=== PATIENT | male | born 1965 | race Caucasian/White ===

== ENCOUNTER 2023-04-11 10:18 | Observation (INO) | payer OTHER ==
[2023-04-11] MEDS ORDERED: SODIUM CHLORIDE 0.9% 1,000 ML IV STA (10:21)
--- NOTE | 2023-04-11 11:05 | ED ---
General Adult HPI - General Chief complaint: Syncope Stated complaint: Near Syncope Time Seen by Provider: 04/11/23 10:21 Source: patient, EMS, RN notes reviewed, Caregiver Mode of arrival: EMS Limitations: altered mental status - History of Present Illness Initial comments: 58-year-old male presenting from longterm where he resides with either syncope versus seizure. Patient has remote history of seizure but has not had one in some time. Patient has no complaints himself. Apparently the patient had collapsed with minor head injury and was somewhat confused. This was not witnessed but staff were immediately at the patient's bedside. He has poor appetite at baseline. No reported fever. He was incontinent of stool. He is currently being worked up by cardiology but uncertain what his primary diagnosis is. - Related Data Home Medications Medication Instructions Recorded Confirmed Cyproheptadine [Cyproheptadine HCl] 4 mg PO DAILY@79904/11/23 04/11/23 Desmopressin [Ddavp] 0.4 mg PO HS@199904/11/23 04/11/23 Ferrous Sulfate [Iron] 325 mg PO DAILY@79904/11/23 04/11/23 LORazepam [Ativan] 0.5 mg PO BID PRN 04/11/23 04/11/23 Lactulose [Constulose] 10 gm PO TID PRN 04/11/23 04/11/23 Levothyroxine Sodium [Synthroid] 75 mcg PO DAILY@199904/11/23 04/11/23 Loratadine [Claritin] 10 mg PO DAILY@199904/11/23 04/11/23 Multivitamins, Thera [Multivitamin 1 tab PO DAILY@79904/11/23 04/11/23 (formulary)] Naltrexone HCl [Revia] 50 mg PO BID@799,199904/11/23 04/11/23 OLANZapine [ZyPREXA] 5 mg PO HS@199904/11/23 04/11/23 Pantoprazole Sodium [Protonix] 40 mg PO DAILY@79904/11/23 04/11/23 Potassium Chloride ER [K-Dur 20] 20 meq PO DAILY@79904/11/23 04/11/23 Propranolol [Inderal] 5 mg PO DAILY@79904/11/23 04/11/23 Psyllium Husk (with Sugar) 1 tsp PO HS PRN 04/11/23 04/11/23 [Metamucil Powder] Venlafaxine HCl ER [Effexor Xr] 150 mg PO BID@0800,199904/11/23 04/11/23 busPIRone HCL [Buspar] 30 mg PO BID@0800,199904/11/23 04/11/23 levETIRAcetam [Keppra] 500 mg PO BID@0800,199904/11/23 04/11/23 polyethylene glycoL 3350 [Miralax] 17 gm PO DAILY@0800 04/11/23 04/11/23 risperiDONE [RisperDAL] 4 mg PO BID@0800,1500 04/11/23 04/11/23 Allergies Allergy/AdvReac Type Severity Reaction Status Date / Time carbamazepine Allergy Unknown Verified 04/11/23 12:00 red dye Allergy Unknown Verified 04/11/23 12:00 Review of Systems ROS Statement: Those systems with pertinent positive or pertinent negative responses have been documented in the HPI. ROS Other: All systems not noted in ROS Statement are negative. Past Medical History Past Medical History: Hypertension, Seizure Disorder, Thyroid Disorder Additional Past Medical History / Comment(s): hernia History of Any Multi-Drug Resistant Organisms: None Reported Past Surgical History: Unable to Obtain Past Psychological History: PTSD Smoking Status: Unknown if ever smoked Past Alcohol Use History: None Reported Past Drug Use History: None Reported General Exam Limitations: altered mental status General appearance: alert Head exam: Present: other (Frontal hematoma) Eye exam: Present: normal appearance, PERRL ENT exam: Present: mucous membranes dry Neck exam: Present: normal inspection. Absent: tenderness, meningismus Respiratory exam: Present: normal lung sounds bilaterally. Absent: respiratory distress Cardiovascular Exam: Present: normal rhythm, bradycardia GI/Abdominal exam: Present: soft. Absent: distended Extremities exam: Present: normal inspection, normal capillary refill. Absent: calf tenderness Neurological exam: Present: alert. Absent: motor sensory deficit Skin exam: Present: warm, dry, intact Course Vital Signs 04/11/23 10:23 Temperature 96.5 F L Pulse Rate 48 L Respiratory 18 Rate Blood Pressure 103/89 O2 Sat by Pulse 99 Oximetry Medical Decision Making - Medical Decision Making Was pt. sent in by a medical professional or institution (, PA, TESTER/LIFT TRUCKER, urgent care, hospital, or long-term...) When possible be specific @ -No Did you speak to anyone other than the patient for history (EMS, parent, family, police, friend...)? What history was obtained from this source @ -No Did you review nursing and triage notes (agree or disagree)? Why? @ -I reviewed and agree with nursing and triage notes Were old charts reviewed (outside hosp., previous admission, EMS record, old EKG, old radiological studies, urgent care reports/EKG's, long-term records)? Report findings @ -No old charts were reviewed Differential Diagnosis (chest pain, altered mental status, abdominal pain women, abdominal pain men, vaginal bleeding, weakness, fever, dyspnea, syncope, headache, dizziness, GI bleed, back pain, seizure, CVA, palpatations, mental health, musculoskeletal)? @ Differential Syncope: Valvular disease, hypertrophic cardiomyopathy, pulmonary embolism, tamponade, tachycardia, bradycardia, RI, hypovolemia, hemorrhage, dissection, anemia, intracranial hemorrhage, seizure, hypoglycemia, carbon monoxide poisoning, this is not meant to be an all-inclusive list. EKG interpreted by me (3pts min.). @Narrow complex rhythm without definitive P waves rate of 45, QRS duration 112, QTC 435, no ST segment elevation. Suspect sinus rhythm, sinus rhythm on the monitor. X-rays interpreted by me (1pt min.). @ No acute cardiopulmonary findings CT interpreted by me (1pt min.). @ -CT brain negative for intracranial hemorrhage or mass effect U/S interpreted by me (1pt. min.). @ -None done What testing was considered but not performed or refused? (CT, X-rays, U/S, labs)? Why? @ -None What meds were considered but not given or refused? Why? @ -None Did you discuss the management of the patient with other professionals (professionals i.e. , PA, TESTER/LIFT TRUCKER, lab, RT, psych nurse, rn social work, polisher sand, teacher, ground nuclear weapons assembly officer, social work case manager)? Give summary @ - Sheet Was smoking cessation discussed for >3mins.? @ -No Was critical care preformed (if so, how long)? @ -No Were there social determinants of health that impacted care today? How? (Homelessness, low income, unemployed, alcoholism, drug addiction, transportation, low edu. Level, literacy, decrease access to med. care, halfway, rehab)? @ -No Was there de-escalation of care discussed even if they declined (Discuss DNR or withdrawal of care, Hospice)? DNR status @ -No What co-morbidities impacted this encounter? (DM, HTN, Smoking, COPD, CAD, Cancer, CVA, ARF, Chemo, Hep., AIDS, mental health diagnosis, sleep apnea, morbid obesity)? @ -[Seizure disorder Was patient admitted / discharged? Hospital course, mention meds given and route, prescriptions, significant lab abnormalities, going to OR and other pertinent info. @ -[58-year-old male presenting for evaluation of syncope versus seizure. History limited from the patient. Caregiver does indicate that he had an un witnessed fall and was unconscious. There was head injury. Head CT was negative for intracranial hemorrhage. The patient is at baseline at time my evaluation. He is bradycardic which is narrow complex. He apparently does not eat or drink well at baseline. Given that the patient is difficult to obtain a detailed history. I will observe him on telemetry overnight, IV hydration will be arriving. Consultation to both neurology and cardiology will be placed. Undiagnosed new problem with uncertain prognosis? @ -No Drug Therapy requiring intensive monitoring for toxicity (Heparin, Nitro, Insulin, Cardizem)? @ -No Were any procedures done? @ -No Diagnosis/symptom? @ -Syncope, bradycardia, possible seizure Acute, or Chronic, or Acute on Chronic? @ -[acute Uncomplicated (without systemic symptoms) or Complicated (systemic symptoms)? @ -default Side effects of treatment? @ -No Exacerbation, Progression, or Severe Exacerbation? @ -No Poses a threat to life or bodily function? How? (Chest pain, USA, RI, pneumonia, PE, COPD, DKA, ARF, appy, cholecystitis, CVA, Diverticulitis, Homicidal, Suicidal, threat to staff... and all critical care pts) @ - yes, seizure, arrhythmia - Lab Data Result diagrams: 04/11/23 11:37 04/11/23 11:37 Lab Results 04/11/23 04/11/23 04/11/23 Range/Units 11:37 11:37 11:37 WBC 9.5 (3.8-10.6) k/uL RBC 4.35 (4.30-5.90) m/uL Hgb 14.1 (13.0-17.5) gm/dL Hct 41.4 (39.0-53.0) % MCV 95.1 (80.0-100.0) fL MCH 32.5 (25.0-35.0) pg MCHC 34.2 (31.0-37.0) g/dL RDW 12.5 (11.5-15.5) % Plt Count 160 (150-450) k/uL MPV 7.8 Neutrophils % 76 % Lymphocytes % 15 % Monocytes % 6 % Eosinophils % 2 % Basophils % 0 % Neutrophils # 7.2 (1.3-7.7) k/uL Lymphocytes # 1.4 (1.0-4.8) k/uL Monocytes # 0.6 (0-1.0) k/uL Eosinophils # 0.2 (0-0.7) k/uL Basophils # 0.0 (0-0.2) k/uL Sodium 137 (137-145) mmol/L Potassium 4.2 (3.5-5.1) mmol/L Chloride 109 H (98-107) mmol/L Carbon Dioxide 23 (22-30) mmol/L Anion Gap 5 mmol/L BUN 14 (9-20) mg/dL Creatinine 0.65 L (0.66-1.25) mg/dL Est GFR (CKD-EPI)AfAm >90 (>60 ml/min/1.73 sqM) Est GFR (CKD-EPI)NonAf >90 (>60 ml/min/1.73 sqM) Glucose 104 H (74-99) mg/dL Calcium 8.7 (8.4-10.2) mg/dL Magnesium 2.0 (1.6-2.3) mg/dL Total Bilirubin 0.6 (0.2-1.3) mg/dL AST 25 (17-59) U/L ALT 20 (4-49) U/L Alkaline Phosphatase 54 (38-126) U/L Troponin I <0.012 (0.000-0.034) ng/mL Total Protein 6.2 L (6.3-8.2) g/dL Albumin 3.5 (3.5-5.0) g/dL Disposition Clinical Impression: Dehydration, Syncope and collapse, Seizure Disposition: ADMITTED IP TO THIS HOSP Condition: Stable Is patient prescribed a controlled substance at d/c from ED?: No Referrals: Kate Vidales MD [REFERRING] - 1-2 days Time of Disposition: 12:44
--- NOTE | 2023-04-11 11:28 | XR ---
EXAMINATION TYPE: XR chest 2V DATE OF EXAM: 04/11/2023 11:12 AM COMPARISON: None TECHNIQUE: XR chest 2V Frontal and lateral views of the chest. CLINICAL INDICATION:Male, 58 years old with history of syncope; FINDINGS: Lungs/Pleura: There is no evidence of pleural effusion, focal consolidation, or pneumothorax. Pulmonary vascularity: Unremarkable. Heart/mediastinum: Cardiomediastinal silhouette is unremarkable. Musculoskeletal: No acute osseous pathology. IMPRESSION: No acute cardiopulmonary disease/process.
--- NOTE | 2023-04-11 11:42 | CT ---
EXAMINATION TYPE: CT brain cb wo con DATE OF EXAM: 04/11/2023 COMPARISON: None HISTORY: Sycnope. Hx of Seizures, HTN and anxiety CT DLP: 1455.1 mGycm, Automated exposure control for dose reduction was used. CONTRAST: None CT of the brain is performed utilizing 3 mm thick sections through the posterior fossa and 3 mm thick sections through the remaining calvarium. Study is performed within 24 hours of arrival to the hospital. No abnormal hyperdensity is present to suggest an acute intracranial hemorrhage. No mass lesion is evident. No acute infarcts are evident. Periventricular white matter hypodensity is present, likely on the ba sis of chronic white matter ischemic changes. Ventricles and sulci are appropriate for the patient age. Paranasal sinuses and mastoid air cells within the [id number] are clear. IMPRESSIONS: 1. Chronic appearing periventricular white matter ischemic changes. 2. No acute intracranial process. Follow-up MRI can be performed as clinically indicated. CT cervical spine. COMPARISON: None CT of the cervical spine is performed in the axial plane at 2 mm thick sections. Reconstructed image s in the coronal, and sagittal plane are reviewed on the computer. No acute fractures are evident. There is exaggeration of the cervical lordosis due to kyphosis within the upper thoracic spine Mild degenerative disc changes are present within the lower thoracic spine. Minimal spondylosis of th e cervical thoracic junction. Vertebral body heights are preserved. No spinal canal stenosis is evident. No neural foraminal stenosis is evident. IMPRESSIONS: 1. Thoracic kyphosis with compensatory cervical lordosis. 2. No acute osseous abnormality cervical spine
[2023-04-11 11:49] LABS: Basophils % (A) 0 %; Eosinophils # (A) 0.2 k/uL (0-0.7); Eosinophils % (A) 2 %; HCT 41.4 % (39.0-53.0); HGB 14.1 gm/dL (13.0-17.5); Lymphocytes # (A) 1.4 k/uL (1.0-4.8); Lymphocytes % (A) 15 %; MCH 32.5 pg (25.0-35.0); MCHC 34.2 g/dL (31.0-37.0); MCV 95.1 fL (80.0-100.0); Mean Platelet Volume 7.8; Monocytes # (A) 0.6 k/uL (0-1.0); Monocytes % (A) 6 %; Neutrophils # (A) 7.2 k/uL (1.3-7.7); Neutrophils % (A) 76 %; Platelet Count 160 k/uL (150-450); RBC 4.35 m/uL (4.30-5.90); RDW 12.5 % (11.5-15.5); WBC 9.5 k/uL (3.8-10.6)
[2023-04-11 12:08] LABS: ALT 20 U/L (4-49); AST 25 U/L (17-59); African American GFR (CKD) >90 (>60 ml/min/1.73 sqM); Albumin 3.5 g/dL (3.5-5.0); Alkaline Phosphatase 54 U/L (38-126); Anion Gap 5 mmol/L; Blood Urea Nitrogen 14 mg/dL (9-20); Calcium 8.7 mg/dL (8.4-10.2); Carbon Dioxide 23 mmol/L (22-30); Chloride 109 mmol/L (98-107); Glucose 104 mg/dL (74-99); Non-African American GFR(CKD) >90 (>60 ml/min/1.73 sqM); Potassium 4.2 mmol/L (3.5-5.1); Sodium 137 mmol/L (137-145); Total Bilirubin 0.6 mg/dL (0.2-1.3); Total Protein 6.2 g/dL (6.3-8.2)
[2023-04-11] MEDS ORDERED: ACETAMINOPHEN TAB 325 MG TAB PO PRN (12:39)
[2023-04-11] MEDS ORDERED: NALOXONE 0.4 MG/ML 1 ML VIAL IV PRN (12:39)
[2023-04-11 12:56] LABS: Partial Thromboplastin Time 18.9 sec (22.0-30.0)
[2023-04-11] MEDS: SODIUM CHLORIDE 0.9% 1,000 ML IV SCH (12:57)
[2023-04-11 13:59] LABS: Glucose,Whole Blood 158 mg/dL (70-110)
[2023-04-11 14:15] LABS: Appearance,Urine Clear (Clear); Bilirubin,Urine Negative (Negative); Blood,Urine Negative (Negative); Color,Urine Yellow; Glucose,Urine (UA) Negative (Negative); Ketones,Urine Trace (Negative); Leukocyte Esterase,Urine Negative (Negative); Nitrite,Urine Negative (Negative); Protein,Urine Negative (Negative); Specific Gravity,Urine 1.005 (1.001-1.035); Urobilinogen,Urine <2.0 mg/dL (<2.0)
[2023-04-11] MEDS: LORATADINE 10 MG TAB PO SCH (19:55)
[2023-04-11] MEDS: LEVOTHYROXINE 75 MCG TAB PO SCH (19:55)
[2023-04-11] MEDS: levETIRAcetam 500 MG TAB PO SCH (19:56)
[2023-04-11] MEDS ORDERED: LORazepam 0.5 MG TAB PO STA (23:44)
[2023-04-12] MEDS: SODIUM CHLORIDE 0.9% 1,000 ML IV SCH ×2 (04:30→16:36)
[2023-04-12] MEDS: PANTOPRAZOLE 40 MG TABLET PO SCH (09:44)
[2023-04-12] MEDS: levETIRAcetam 500 MG TAB PO SCH ×2 (09:44→20:33)
--- NOTE | 2023-04-12 10:23 | P.CRDCN ---
History of Present Illness History of present illness: HISTORY OF PRESENT ILLNESS: This is a 58-year-old male with a past medical history significant for Fragile X Syndrome with developmental delay and psychiatric disorders, hypertension, and seizures. Patient follows in the office with Dr. Garrison. We have been asked to see the patient in consultation for syncope. Patient examined at the bedside. Patient is somewhat of a poor historian. He states that he was walking around in his room yesterday when he fell. He reports hitting his head. He denied feeling dizzy or lightheaded prior to this. He denied any chest pain or shortness of breath. He states that his friend/caregiver Alban was home but did not witness his fall. He believes that he did lose consciousness. Patient states he is feeling well this morning. He denies any chest pain or pressure he denies any shortness of breath. Vital signs are stable. Telemetry reveals sinus mechanism. * EKG reveals sinus bradycardia with no signs of acute ischemia * Chest xray negative for acute process * Laboratory data: WBC 9.5. Hemoglobin 14.1. Platelet count 160. Sodium 137. Potassium 4.2. BUN 14. Creatinine 0.65. * Current home cardiac medications include propanolol 5 mg daily * Most recent echocardiogram obtained in 2014 revealed ejection fraction 55-60%, trace TR, mild MR REVIEW OF SYSTEMS: At the time of my exam: CONSTITUTIONAL: Denies fever or chills. HEENT: Denies blurred vision, vision changes, or eye pain. Denies hemoptysis CARDIOVASCULAR: Denies chest pain. Denies orthopnea. Denies PND. Denies palpit ations RESPIRATORY: Denies shortness of breath. GASTROINTESTINAL: Denies abdominal pain. Denies nausea or vomiting. HEMATOLOGIC: Denies bleeding disorders. GENITOURINARY: Denies any blood in urine. SKIN: Denies pruitis. Denies rash. PHYSICAL EXAM: VITAL SIGNS: Reviewed. GENERAL: Well-developed in no acute distress. HEENT: Head is normocephalic. Pupils are equal, round. Sclerae anicteric. Mucous membranes of the mouth are moist. Neck supple. No JVD or thyromegaly LUNGS: Respirations even and unlabored. Lungs essentially clear to auscultation bilaterally. HEART: Regular rate and rhythm. S1 and S2 heard. ABDOMEN: Soft. Nondistended. Nontender. EXTREMITIES: Normal range of motion. No clubbing or cyanosis. Peripheral pulses intact. No lower extremity edema NEUROLOGIC: Awake and alert. Oriented x 3. ASSESSMENT: Syncope Isorhythmic AV dissociation History of seizure disorder History of hypertension History of Fragile X Syndrome with developmental delay and psychiatric disorder PLAN: Obtain 2-D echo to assess cardiac structure and function Continue telemetry monitoring Patient is scheduled for outpatient dobutamine stress test on 05/04/2023 Patient will receive event monitor from the cardiology office post discharge Will consider loop recorder if patient unable to tolerate event monitor Further recommendations pending patient's course Nurse practitioner note has been reviewed by physician. Signing provider agrees with the documented findings, assessment, and plan of care. Past Medical History Past Medical History: Hypertension, Seizure Disorder, Thyroid Disorder Additional Past Medical History / Comment(s): hernia, fragile X syndrome History of Any Multi-Drug Resistant Organisms: None Reported Past Surgical History: Unable to Obtain Past Anesthesia/Blood Transfusion Reactions: Unable to Obtain Past Psychological History: PTSD Smoking Status: Unknown if ever smoked Past Alcohol Use History: None Reported Past Drug Use History: None Reported Medications and Allergies Home Medications Medication Instructions Recorded Confirmed Type Cyproheptadine [Cyproheptadine HCl] 4 mg PO DAILY@79904/11/23 04/11/23 History Desmopressin [Ddavp] 0.4 mg PO HS@199904/11/23 04/11/23 History Ferrous Sulfate [Iron] 325 mg PO DAILY@79904/11/23 04/11/23 History LORazepam [Ativan] 0.5 mg PO BID PRN 04/11/23 04/11/23 History Lactulose [Constulose] 10 gm PO TID PRN 04/11/23 04/11/23 History Levothyroxine Sodium [Synthroid] 75 mcg PO DAILY@199904/11/23 04/11/23 History Loratadine [Claritin] 10 mg PO DAILY@199904/11/23 04/11/23 History Multivitamins, Thera [Multivitamin 1 tab PO DAILY@79904/11/23 04/11/23 History (formulary)] Naltrexone HCl [Revia] 50 mg PO BID@08,199904/11/23 04/11/23 History OLANZapine [ZyPREXA] 5 mg PO HS@199904/11/23 04/11/23 History Pantoprazole Sodium [Protonix] 40 mg PO DAILY@0800 04/11/23 04/11/23 History Potassium Chloride ER [K-Dur 20] 20 meq PO DAILY@0804/11/23 04/11/23 History Propranolol [Inderal] 5 mg PO DAILY@0800 04/11/23 04/11/23 History Psyllium Husk (with Sugar) 1 tsp PO HS PRN 04/11/23 04/11/23 History [Metamucil Powder] Venlafaxine HCl ER [Effexor Xr] 150 mg PO BID@0800,199904/11/23 04/11/23 H istory busPIRone HCL [Buspar] 30 mg PO BID@0800,199904/11/23 04/11/23 History levETIRAcetam [Keppra] 500 mg PO BID@0800,199904/11/23 04/11/23 History polyethylene glycoL 3350 [Miralax] 17 gm PO DAILY@0800 04/11/23 04/11/23 History risperiDONE [RisperDAL] 4 mg PO BID@0800,1500 04/11/23 04/11/23 History Allergies Allergy/AdvReac Type Severity Reaction Status Date / Time carbamazepine Allergy Unknown Verified 04/11/23 12:00 red dye Allergy Unknown Verified 04/11/23 12:00 Physical Exam Vitals: Vital Signs Temp Pulse Pulse Resp BP BP Pulse Ox 04/12/23 03:11 111/75 04/12/23 02:45 97.8 F 57 L 19 96 04/11/23 23:00 120/82 04/11/23 22:00 16 04/11/23 21:48 98.3 F 51 L 16 89/46 95 04/11/23 21:05 71 16 04/11/23 19:37 79 18 116/89 97 04/11/23 18:26 97.0 F L 79 20 118/83 99 04/11/23 15:00 81 17 144/78 04/11/23 14:00 70 18 157/83 04/11/23 13:21 47 L 20 108/92 97 04/11/23 11:00 45 L 16 123/94 97 04/11/23 10:23 96.5 F L 48 L 18 103/89 99 Intake and Output 04/11/23 04/12/23 04/12/23 22:59 06:59 14:59 Other: Voiding Method Bedside Commode Bedside Commode # Voids 2 Weight 56.699 kg Results 04/11/23 11:37 04/11/23 11:37 Cardiac Enzymes 04/11/23 04/11/23 Range/Units 11:37 11:37 AST 25 (17-59) U/L Troponin I <0.012 (0.000-0.034) ng/mL Coagulation 04/11/23 Range/Units 11:37 PT 11.0 (9.0-12.0) sec APTT 18.9 L (22.0-30.0) sec CBC 04/11/23 Range/Units 11:37 WBC 9.5 (3.8-10.6) k/uL RBC 4.35 (4.30-5.90) m/uL Hgb 14.1 (13.0-17.5) gm/dL Hct 41.4 (39.0-53.0) % Plt Count 160 (150-450) k/uL Comprehensive Metabolic Panel 04/11/23 Range/Units 11:37 Sodium 137 (137-145) mmol/L Potassium 4.2 (3.5-5.1) mmol/L Chloride 109 H (98-107) mmol/L Carbon Dioxide 23 (22-30) mmol/L BUN 14 (9-20) mg/dL Creatinine 0.65 L (0.66-1.25) mg/dL Glucose 104 H (74-99) mg/dL Calcium 8.7 (8.4-10.2) mg/dL AST 25 (17-59) U/L ALT 20 (4-49) U/L Alkaline Phosphatase 54 (38-126) U/L Total Protein 6.2 L (6.3-8.2) g/dL Albumin 3.5 (3.5-5.0) g/dL Current Medications Generic Name Dose Route Start Last Admin Trade Name Freq PRN Reason Stop Dose Admin Acetaminophen 650 mg 04/11/23 12:39 Acetaminophen Tab 325 Mg Tab PO Q6HR PRN Mild Pain or Fever > 100.5 Sodium Chloride 1,000 mls @ 75 mls/hr 04/11/23 12:45 04/12/23 04:30 Saline 0.9% IV Not Given .[id number] [facility] Levetiracetam 500 mg 04/11/23 20:00 04/11/23 19:56 Levetiracetam 500 Mg Tab PO 500 mg BID@ [facility] Administration Levothyroxine Sodium 75 mcg 04/11/23 20:00 04/11/23 19:55 Levothyroxine 75 Mcg Tab PO 75 mcg DAILY@1999 [facility] Administration Loratadine 10 mg 04/11/23 20:00 04/11/23 19:55 Loratadine 10 Mg Tab PO 10 mg DAILY@1999 [facility] Administration Naloxone HCl 0.2 mg 04/11/23 12:39 Naloxone 0.4 Mg/Ml 1 Ml Vial IV Q2M PRN Opioid Reversal Pantoprazole Sodium 40 mg 04/12/23 08:00 Pantoprazole 40 Mg Tablet PO DAILY@0800 [facility] Intake and Output 04/11/23 04/12/23 04/12/23 22:59 06:59 14:59 Other: Voiding Method Bedside Commode Bedside Commode # Voids 2 Weight 56.699 kg 04/11/23 11:37 04/11/23 11:37
[2023-04-12] MEDS ORDERED: LACTULOSE 20 GM/30 ML CUP PO PRN (10:53)
--- NOTE | 2023-04-12 13:41 | P.CNNES ---
History of Present Illness Consult date: 04/12/23 Requesting physician: Francois Lamar Reason for Consult: seizure History of Present Illness: This is a 58-year-old gentleman with history of fragile X syndrome, developmental delay seizures who presented emergency department because of syncopal episode. History is obtained from medical records. It seems the patie nt was walking around his a room 2 days ago when he fell and that he had as had that. He denies any dizziness or lightheadedness prior to this. The following episode was not witnessed and he feels he lost consciousness. He is on home dose of Keppra 500 mg 1 tablet twice a day. Some of the workup during his hospital visit consisted of: Patient heart rate has been in the 40s on presentation Keppra level 64 and normal supposed to be between 11/12/1959. CT of the head is reported as chronic appearing periventricular white matter ischemic changes. No acute intracranial process. Follow-up MRI can be perform is contraindicated. CT cervical spine was reported as thoracic kyphosis with contrast history cervical lordosis. No acute osseous abnormality cervical spine. I personally reviewed the CT of the head and I feel there significant stenosis on the C1 to C3. Review of Systems Review of system is limited but pertinent positive and negative as per HPI. Past Medical History Past Medical History: Hypertension, Seizure Disorder, Thyroid Disorder Additional Past Medical History / Comment(s): hernia, fragile X syndrome History of Any Multi-Drug Resistant Organisms: None Reported Past Surgical History: Unable to Obtain Past Anesthesia/Blood Transfusion Reactions: Unable to Obtain Past Psychological History: PTSD Smoking Status: Unknown if ever smoked Past Alcohol Use History: None Reported Past Drug Use History: None Reported Medications and Allergies Home Medications Medication Instructions Recorded Confirmed Type Cyproheptadine [Cyproheptadine HCl] 4 mg PO DAILY@79904/11/23 04/11/23 History Desmopressin [Ddavp] 0.4 mg PO HS@199904/11/23 04/11/23 History Ferrous Sulfate [Iron] 325 mg PO DAILY@79904/11/23 04/11/23 History LORazepam [Ativan] 0.5 mg PO BID PRN 04/11/23 04/11/23 History Lactulose [Constulose] 10 gm PO TID PRN 04/11/23 04/11/23 History Levothyroxine Sodium [Synthroid] 75 mcg PO DAILY@199904/11/23 04/11/23 History Loratadine [Claritin] 10 mg PO DAILY@199904/11/23 04/11/23 History Multivitamins, Thera [Multivitamin 1 tab PO DAILY@0804/11/23 04/11/23 History (formulary)] Naltrexone HCl [Revia] 50 mg PO BID@0800,199904/11/23 04/11/23 History OLANZapine [ZyPREXA] 5 mg PO HS@199904/11/23 04/11/23 History Pantoprazole Sodium [Protonix] 40 mg PO DAILY@79904/11/23 04/11/23 History Potassium Chloride ER [K-Dur 20] 20 meq PO DAILY@79904/11/23 04/11/23 History Propranolol [Inderal] 5 mg PO DAILY@79904/11/23 04/11/23 History Psyllium Husk (with Sugar) 1 tsp PO HS PRN 04/11/23 04/11/23 History [Metamucil Powder] Venlafaxine HCl ER [Effexor Xr] 150 mg PO BID@0800,199904/11/23 04/11/23 History busPIRone HCL [Buspar] 30 mg PO BID@0800,199904/11/23 04/11/23 History levETIRAcetam [Keppra] 500 mg PO BID@0800,199904/11/23 04/11/23 History polyethylene glycoL 3350 [Miralax] 17 gm PO DAILY@0800 04/11/23 04/11/23 History risperiDONE [RisperDAL] 4 mg PO BID@0800,1500 04/11/23 04/11/23 History Allergies Allergy/AdvReac Type Severity Reaction Status Date / Time carbamazepine Allergy Unknown Verified 04/11/23 12:00 red dye Allergy Unknown Verified 04/11/23 12:00 Physical Examination - Vital Signs Vital Signs: Vital Signs Temp Pulse Pulse Resp BP BP Pulse Ox 04/12/23 07:00 97.2 F L 66 17 96 04/12/23 03:11 111/75 04/12/23 02:45 97.8 F 57 L 19 96 04/11/23 23:00 120/82 04/11/23 22:00 16 04/11/23 21:48 98.3 F 51 L 16 89/46 95 04/11/23 21:05 71 16 04/11/23 19:37 79 18 116/89 97 04/11/23 18:26 97.0 F L 79 20 118/83 99 04/11/23 15:00 81 17 144/78 04/11/23 14:00 70 18 157/83 04/11/23 13:21 47 L 20 108/92 97 Intake and Output 04/11/23 04/12/23 04/12/23 22:59 06:59 14:59 Other: Voiding Method Bedside Commode Bedside Commode # Voids 2 Weight 56.699 kg GENERAL: The patient is lying in bed and is not in acute distress. NEUROLOGICAL: Limited because of his cooperation. Is developmentally delayed. Higher mental function: The patient is awake, alert, oriented to self and he stated he was in hospital. He was able to name watch and pen. Followed few simple commands. Language is limited. Has poor eye contact. . Cranial nerves: The pupils are round, equal and reactive to light. Unable to assess EOM. No facial weakness. No dysarthria from limited speech. Motor: The strength is unable to assess individual muscle strength but briefly lifting uppers and lowers above gravity. He had some resting tremor throughout extremities (appears he was somewhat anxious) that resolved with performing tass. Cerebellum: Unable to assess. Sensation: Unable to assess. Reflexes (right/left): Unable to assess. Results - Laboratory Findings CBC and BMP: 04/11/23 11:37 04/11/23 11:37 Abnormal Lab Findings: Abnormal Labs 04/11/23 04/11/23 04/11/23 11:37 11:37 13:58 APTT 18.9 L Chloride 109 H Creatinine 0.65 L Glucose 104 H POC Glucose (mg/dL) 158 H Total Protein 6.2 L Urine Ketones 04/11/23 14:09 APTT Chloride Creatinine Glucose POC Glucose (mg/dL) Total Protein Urine Ketones Trace H Assessment and Plan Assessment: This is a 58-year-old gentleman with history of fragile X, the ventral delay, seizure who presented to the emergency department after a fall that was not witnessed and he believes she lost consciousness and that is the head. On presentation his heart rate was as low as 40s. Syncope of unknown cause. Cannot rule out seizure versus cardiac etiology especially with heart rate in the 40s. Unsure if any associated to his cervical stenosis. Cervical stenosis and upon review the CT I felt that there is stenosis between C1 and C3 History of seizures History of fragile X with the mental delay and psychiatric disorder Isorhythmic A-V dissociation Plan: I ordered a routine EEG will any underlying active seizures or discharges Ordered orthostatic vitals Patient is continued on his home dose of Keppra 500 mg twice a day. I consulted orthopedic surgery team since I felt the patient had cervical stenosis that appeared significant between C1 and C3 Cardiology is consulted and the 2-D echo is ordered and is pending We'll defer the rest of the medical management to primary team The plan discussed with the patient's nurse. Thank you consultation Time with Patient: Greater than 30
--- NOTE | 2023-04-12 13:59 | P.HPIM ---
History of Present Illness H&P Date: 04/12/23 Chief Complaint: Altered mental status change This is a 58-year-old male resident of a senior care with past medical history significant for Fragile X syndrome with developmental delay, hypothyroidism, seizure disorder, hypertension and multiple other medical issues, admitted with change in mental status. Patient is a vague historian, with no complaints. Patient denies chest pain, palpitations or shortness of breath. Patient denies lightheadedness dizziness or focal deficits .Per ER record, patient collapsed, hit his head-witnessed by staff patient was brought in for further examination. Staff reported no nausea or vomiting, no fever or chills. No nausea, vomiting or diarrhea. alf staff reported patient was incontinent of urine and diarrhea which is not baseline for this patient. Head CT reported negative for intracranial hemorrhage, chronic periventricular white matter ischemic changes, no acute intracranial process, thoracic kyphosis with compensatory cervical lordosis, no acute osseous abnormality C-spine, vertebral body heights preserved, no spinal canal stenosis evident, no neural foraminal stenosis evident-further review by neurology pending. Viral studies reported negative. EKG is sinus bradycardia,telemetry sinus this morning. Chest x-ray reported negative for acute process. Afebrile, normal WBC, hemoglobin 14.1, platelets 160, electrolytes and renal function stable. Maintained on IV fluid hydration. Evaluated by cardiology, echocardiogram ordered Review of Systems ROS unable to obtain, secondary to patient poor historian and unable to provide detailed history. Past Medical History Past Medical History: Hypertension, Seizure Disorder, Thyroid Disorder Additional Past Medical History / Comment(s): hernia, fragile X syndrome History of Any Multi-Drug Resistant Organisms: None Reported Past Surgical History: Unable to Obtain Past Anesthesia/Blood Transfusion Reactions: Unable to Obtain Past Psychological History: PTSD Smoking Status: Unknown if ever smoked Past Alcohol Use History: None Reported Past Drug Use History: None Reported Medications and Allergies Home Medications Medication Instructions Recorded Confirmed Type Cyproheptadine [Cyproheptadine HCl] 4 mg PO DAILY@79904/11/23 04/11/23 History Desmopressin [Ddavp] 0.4 mg PO HS@199904/11/23 04/11/23 History Ferrous Sulfate [Iron] 325 mg PO DAILY@79904/11/23 04/11/23 History LORazepam [Ativan] 0.5 mg PO BID PRN 04/11/23 04/11/23 History Lactulose [Constulose] 10 gm PO TID PRN 04/11/23 04/11/23 History Levothyroxine Sodium [Synthroid] 75 mcg PO DAILY@199904/11/23 04/11/23 History Loratadine [Claritin] 10 mg PO DAILY@199904/11/23 04/11/23 History Multivitamins, Thera [Multivitamin 1 tab PO DAILY@0804/11/23 04/11/23 History (formulary)] Naltrexone HCl [Revia] 50 mg PO BID@0800,199904/11/23 04/11/23 History OLANZapine [ZyPREXA] 5 mg PO HS@199904/11/23 04/11/23 History Pantoprazole Sodium [Protonix] 40 mg PO DAILY@79904/11/23 04/11/23 History Potassium Chloride ER [K-Dur 20] 20 meq PO DAILY@0800 04/11/23 04/11/23 History Propranolol [Inderal] 5 mg PO DAILY@0804/11/23 04/11/23 History Psyllium Husk (with Sugar) 1 tsp PO HS PRN 04/11/23 04/11/23 History [Metamucil Powder] Venlafaxine HCl ER [Effexor Xr] 150 mg PO BID@0800,199904/11/23 04/11/23 History busPIRone HCL [Buspar] 30 mg PO BID@0800,199904/11/23 04/11/23 History levETIRAcetam [Keppra] 500 mg PO BID@0800,199904/11/23 04/11/23 History polyethylene glycoL 3350 [Miralax] 17 gm PO DAILY@0800 04/11/23 04/11/23 History risperiDONE [RisperDAL] 4 mg PO BID@0800,1500 04/11/23 04/11/23 History Allergies Allergy/AdvReac Type Severity Reaction Status Date / Time carbamazepine Allergy Unknown Verified 04/11/23 12:00 red dye Allergy Unknown Verified 04/11/23 12:00 Physical Exam Vitals: Vital Signs Temp Pulse Pulse Resp BP BP Pulse Ox 04/12/23 07:00 97.2 F L 66 17 96 04/12/23 03:11 111/75 04/12/23 02:45 97.8 F 57 L 19 96 04/11/23 23:00 120/82 04/11/23 22:00 16 04/11/23 21:48 98.3 F 51 L 16 89/46 95 04/11/23 21:05 71 16 04/11/23 19:37 79 18 116/89 97 04/11/23 18:26 97.0 F L 79 20 118/83 99 04/11/23 15:00 81 17 144/78 04/11/23 14:00 70 18 157/83 04/11/23 13:21 47 L 20 108/92 97 04/11/23 11:00 45 L 16 123/94 97 Intake and Output 04/11/23 04/12/23 04/12/23 22:59 06:59 14:59 Other: Voiding Method Bedside Commode Bedside Commode # Voids 2 Weight 56.699 kg PHYSICAL EXAM: VITAL SIGNS: [As above] GENERAL: Developementally delayed, Sitting up in bed, no acute distress,mild anxiety. HEENT: Normocephalic. Conjunctivae normal. eyes normal. MMM. NECK: Supple, No JVD. No thyroid enlargement. No LNs CARDIOVASCULAR: S1, S2 regular.. No murmur RESPIRATION: Unlabored, Breath sounds diminished in the bases. No rhonchi or crackles. No bronchial breathing. ABDOMEN: Soft, nondistended, nontender . No guarding. no masses palpable. No ascites, No hepatosplenomegaly.Bowel sounds heard. LEGS: No edema. no swelling PSYCHIATRY: Alert and oriented X2, mood and affect normal. NERVOUS SYSTEM: Limited exam. Skin: Warm and dry, no rash. Results CBC & Chem 7: 04/11/23 11:37 04/11/23 11:37 Labs: Abnormal Lab Results - Last 24 Hours (Table) 04/11/23 04/11/23 04/11/23 Range/Units 11:37 11:37 13:58 APTT 18.9 L (22.0-30.0) sec Chloride 109 H (98-107) mmol/L Creatinine 0.65 L (0.66-1.25) mg/dL Glucose 104 H (74-99) mg/dL POC Glucose (mg/dL) 158 H (70-110) mg/dL Total Protein 6.2 L (6.3-8.2) g/dL Urine Ketones (Negative) 04/11/23 Range/Units 14:09 APTT (22.0-30.0) sec Chloride (98-107) mmol/L Creatinine (0.66-1.25) mg/dL Glucose (74-99) mg/dL POC Glucose (mg/dL) (70-110) mg/dL Total Protein (6.3-8.2) g/dL Urine Ketones Trace H (Negative) Thrombosis Risk Factor Assmnt - Choose All That Apply Each Factor Represents 1 point: Age 41-60 years Other Risk Factors: No Other congenital or acquired thrombophilia - If yes, enter type in comment: No Thrombosis Risk Factor Assessment Total Risk Factor Score: 1 Thrombosis Risk Factor Assessment Level: Low Risk Assessment and Plan Assessment: Collapse with fall, syncope , possible seizure, possibly cardiac related - bradycardic on admission,etiology unclear, workup in progress. Dehydration History of seizures Isorhythmic A-V dissociation as per cardiology Fragile X syndrome, history of with developmental delay Plan: Continue on current medication regime ,monitoring and symptomatic treatment. Evaluated by cardiology with recommendations noted and appreciated. Echo pending. EEG pending. Neurology consult in place, recommendations pending. Seizure precautions. The impression and plan of care has been dictated as directed. : I performed a history and examination of this patient, discussed the same with the dictator. I agree with the dictator's note ,documented as a scribe. Any additional findings or plans will be noted.
[2023-04-12] MEDS ORDERED: OLANZapine 5 MG TAB PO SCH (20:00)
--- NOTE | 2023-04-12 20:15 | EEG ---
ELECTROENCEPHALOGRAM REPORT CLINICAL HISTORY: This is a 58-year-old gentleman with history of seizures, Fragile X, developmental delay, who had a syncopal episode outside the hospital. The video EEG is obtained to evaluate for seizure epileptiform activity. RELEVANT MEDICATION: Keppra. EEG TYPE: A routine 21-channel EEG is performed with video using the 10/20 electrode placement system. DESCRIPTION: Wakefulness is obtained. During awake state, the background consists of low-to- moderate voltage of 6 to 7 hertz activity. There is no physiological stage 2 sleep architecture. There is no focal slowing. Interictal and ictal is none. ACTIVATION PROCEDURE: Photic stimulation and hyperventilation are not performed. CLINICAL INTERPRETATION: This is an abnormal routine EEG. The background slowing is suggestive of mild encephalopathy. Otherwise, there is no focal slowing, epileptiform discharge, or seizure on the EEG. Clinical correlation is recommended. MADDI / KAEL: [id number] / MTDD
[2023-04-12] MEDS: NALTREXONE HCL 50 MG TAB PO SCH (20:33)
[2023-04-12] MEDS: LORATADINE 10 MG TAB PO SCH (20:33)
[2023-04-12] MEDS: LEVOTHYROXINE 75 MCG TAB PO SCH (20:33)
[2023-04-13] MEDS: SODIUM CHLORIDE 0.9% 1,000 ML IV SCH (05:51)
--- NOTE | 2023-04-13 06:53 | CA ---
Transthoracic Echo Report Name: Ethan Fontana Age: 58 Gender: M : 1965 Exam Date: 04/12/2023 10:08 Exam Location: [place] Echo Ht (in): 67 Wt (lb): 125 Ordering Physician: Henny Jensen Attending/Referring Phys: [id number], Mikye Operating Room Technologist Winifred Luke RDCS Procedure CPT: Indications: LV function Cardiac Hx: Technical Quality: Technically difficult study Contrast 1: Total Dose (mL): Contrast 2: Total Dose (mL): MEASUREMENTS (Male / Female) Normal Values 2D ECHO LV Diastolic Diameter PLAX 2.8 cm 4.2 - 5.9 / 3.9 - 5.3 cm LV Systolic Diameter PLAX 2.2 cm IVS Diastolic Thickness 1.7 cm 0.6 - 1.0 / 0.6 - 0.9 cm LVPW Diastolic Thickness 1.4 cm 0.6 - 1.0 / 0.6 - 0.9 cm LV Relative Wall Thickness 1.1 LA Volume 46.5 cm??? 18 - 58 / 22 - 52 cm??? DOPPLER AV Peak Velocity 106.7 cm/s AV Peak Gradient 4.6 mmHg AV Mean Velocity 76.5 cm/s AV Mean Gradient 2.5 mmHg AV Velocity Time Integral 20.9 cm LVOT Peak Velocity 102.9 cm/s LVOT Peak Gradient 4.2 mmHg LVOT Velocity Time Integral 19.5 cm MV Area PHT 2.4 cm??? Mitral E Point Velocity 63.9 cm/s Mitral A Point Velocity 52.1 cm/s Mitral E to A Ratio 1.2 MV Deceleration Time 315.9 ms MV E' Velocity 8.6 cm/s Mitral E to MV E' Ratio 7.5 TR Peak Velocity 193.4 cm/s TR Peak Gradient 15.0 mmHg Right Ventricular Systolic Press 20.0 mmHg FINDINGS Left Ventricle Moderately increased left ventricular wall thickness. Normal left ventricular systolic function with no obvious regional wall motion abnormalities. Left ventricular ejection fraction is estimated at 55-60 %. Right Ventricle Right ventricle not well visualized. Right Atrium Right atrium not well visualized. Left Atrium Normal left atrial size. Mitral Valve Thickened mitral valve leaflets, trace to mild mitral regurgitation Aortic Valve Aortic valve not well visualized. Tricuspid Valve Mild tricuspid regurgitation. Structurally normal tricuspid valve. Pulmonic Valve Pulmonic valve not well visualized. Pericardium No pericardial effusion. Aorta Aortic root and proximal ascending aorta not well visualized. CONCLUSIONS Technically difficult study. Normal left ventricle size and systolic function Mild tricuspid regurgitation with trace to mild mitral regurgitation Thickened mitral valve leaflets Previewed by: Dr. Stefanie aCrlson MD (Electronically Signed) Final Date: 13 April 2023 06:52
[2023-04-13] MEDS ORDERED: MULTIVITAMINS, THERA 1 EACH TAB PO SCH (08:00)
[2023-04-13] MEDS ORDERED: FERROUS SULFATE 325 MG TAB PO SCH (08:00)
[2023-04-13] MEDS ORDERED: polyethylene glycoL 3350 17 GM POWD.PACK PO SCH (08:00)
[2023-04-13] MEDS: levETIRAcetam 500 MG TAB PO SCH (08:14)
[2023-04-13] MEDS: PANTOPRAZOLE 40 MG TABLET PO SCH (08:14)
[2023-04-13] MEDS: NALTREXONE HCL 50 MG TAB PO SCH (08:15)
[2023-04-13 09:10] VITALS: BP 109/71; PULSE 60; RESP 16; TEMP 97.3
--- NOTE | 2023-04-13 10:40 | P.PN ---
Subjective HISTORY OF PRESENT ILLNESS: This is a 58-year-old male with a past medical history significant for Fragile X Syndrome with developmental delay and psychiatric disorders, hypertension, and seizures. Patient follows in the office with Dr. Garrison. We have been asked to see the patient in consultation for syncope. Patient examined at the bedside. Patient is somewhat of a poor historian. He states that he was walking around in his room yesterday when he fell. He reports hitting his head. He denied feeling dizzy or lightheaded prior to this. He denied any chest pain or shortness of breath. He states that his friend/caregiver Alban was home but did not witness his fall. He believes that he did lose consciousness. Patient states he is feeling well this morning. He denies any chest pain or pressure he denies any shortness of breath. Vital signs are stable. Telemetry reveals sinus mechanism. * EKG reveals sinus bradycardia with no signs of acute ischemia * Chest xray negative for acute process * Laboratory data: WBC 9.5. Hemoglobin 14.1. Platelet count 160. Sodium 137. Potassium 4.2. BUN 14. Creatinine 0.65. * Current home cardiac medications include propanolol 5 mg daily * Most recent echocardiogram obtained in 2014 revealed ejection fraction 55-60%, trace TR, mild MR 04/13/2023 Patient examined this morning at the bedside. Patient denies chest pain or pressure. He denies shortness of breath. Echocardiogram completed revealing ejection fraction 55-60%, trace to mild mitral regurgitation, and mild tricuspid regurgitation. Patient underwent EEG revealing background slowing suggestive of mild encephalopathy. Otherwise no evidence of seizure activity. PHYSICAL EXAM: VITAL SIGNS: Reviewed. GENERAL: Well-developed in no acute distress. HEENT: Head is normocephalic. Pupils are equal, round. Sclerae anicteric. Mucous membranes of the mouth are moist. Neck supple. No JVD or thyromegaly LUNGS: Respirations even and unlabored. Lungs essentially clear to auscultation bilaterally. HEART: Regular rate and rhythm. S1 and S2 heard. ABDOMEN: Soft. Nondistended. Nontender. EXTREMITIES: Normal range of motion. No clubbing or cyanosis. Peripheral pul ses intact. No lower extremity edema NEUROLOGIC: Awake and alert. Oriented x 3. ASSESSMENT: Syncope Isorhythmic AV dissociation History of seizure disorder History of hypertension History of Fragile X Syndrome with developmental delay and psychiatric disorder PLAN: Neurology and orthopedics following Patient is scheduled for outpatient dobutamine stress test on 05/04/2023 Patient will receive event monitor from the cardiology office post discharge Will consider loop recorder if patient unable to tolerate event monitor Patient is stable for discharge home today from a cardiac standpoint We will sign off. Please reconsult if needed. Nurse practitioner note has been reviewed by physician. Signing provider agrees with the documented findings, assessment, and plan of care. Objective - Vital Signs Vital signs: Vital Signs Temp 97.3 F L 04/13/23 07:00 Pulse 60 04/13/23 07:00 Resp 16 04/13/23 07:00 BP 109/71 04/13/23 07:00 Pulse Ox 97 04/13/23 07:00 FiO2 Intake & Output 04/12/23 04/13/23 04/13/23 18:59 06:59 18:59 Intake Total 2017 Balance 2017 Intake: Intake, IV Titration 600 Amount Sodium Chloride 0.9% 1, 600 000 ml @ 75 mls/hr IV . [id number] [facility] Rx#:[id number] Oral 1418 Other: Voiding Method Bedside Commode Bedside Commode # Voids 1 3 - Labs CBC & Chem 7: 04/11/23 11:37 04/11/23 11:37
[2023-04-13] MEDS ORDERED: PSYLLIUM HUSK 100% 6 GM PACKET PO PRN (10:45)
[2023-04-13] MEDS ORDERED: LORazepam 0.5 MG TAB PO PRN (10:45)
--- NOTE | 2023-04-13 12:28 | P.PN ---
Subjective Progress Note Date: 04/13/23 The patient seen at bedside and per the patient and her she is about the same. No further episodes of syncopal episode or any seizure-like episodes. Patient feels he is doing well. Objective - Vital Signs Vital signs: Vital Signs Temp 97.3 F L 04/13/23 07:00 Pulse 60 04/13/23 07:00 Resp 16 04/13/23 07:00 BP 109/71 04/13/23 07:00 Pulse Ox 97 04/13/23 07:00 FiO2 Intake & Output 04/12/23 04/13/23 04/13/23 18:59 06:59 18:59 Intake Total 2017 Balance 2017 Intake: Intake, IV Titration 600 Amount Sodium Chloride 0.9% 1, 600 000 ml @ 75 mls/hr IV . [id number] CESARIO Rx#:[id number] Oral 1418 Other: Voiding Method Bedside Commode Bedside Commode # Voids 1 3 - Exam GENERAL: The patient is lying in bed and is not in acute distress. NEUROLOGICAL: Limited because of his cooperation. Is developmentally delayed. Higher mental function: The patient is awake, alert, oriented to self and he stated he was in hospital. He was able to name watch and pen. Followed few simple commands. Language is limited. Has poor eye contact. . Cranial nerves: The pupils are round, equal and reactive to light. Unable to assess EOM. No facial weakness. No dysarthria from limited speech. Motor: The strength is unable to assess individual muscle strength but briefly lifting uppers and lowers above gravity. He had some resting tremor throughout extremities (appears he was somewhat anxious) that resolved with performing tass. Cerebellum: Unable to assess. Sensation: Unable to assess. Reflexes (right/left): Unable to assess. Some of the workup during his hospital visit consisted of: Orthostatic vital as blood pressure supine is 106/56 with a heart rate of 56, sitting is 124/78 with a heart rate 59 and standing is 126/73 with a heart 59. Orthostatics are negative. Patient heart rate has been in the 40s on presentation Keppra level 64 and normal supposed to be between 11/12/1959. CT of the head is reported as chronic appearing periventricular white matter ischemic changes. No acute intracranial process. Follow-up MRI can be perform is contraindicated. CT cervical spine was reported as thoracic kyphosis with contrast history cervical lordosis. No acute osseous abnormality cervical spine. I personally reviewed the CT of the head and I feel there significant stenosis on the C1 to C3. Routine EEG is abnormal. The background slowing suggestive of mild ence phalopathy. Otherwise there is no focal slowing, epileptiform discharges or seizure on the EEG - Labs CBC & Chem 7: 04/11/23 11:37 04/11/23 11:37 Assessment and Plan Assessment: This is a 58-year-old gentleman with history of fragile X, the ventral delay, seizure who presented to the emergency department after a fall that was not witnessed and he believes she lost consciousness and that is the head. On presentation his heart rate was as low as 40s. Syncope of unknown cause. Cannot rule out seizure versus cardiac etiology especially with heart rate in the 40s. Unsure if any associated to his cervical stenosis. EEG is negative for any seizure or discharges appeared orthostatic is negative. 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 I consulted orthopedic surgery team since I felt the patient had cervical stenosis that appeared significant between C1 and C3 Cardiology is consulted. He recommended an event monitor from the cardiology office post discharge as well as outpatient dobutamine which is scheduled on 05/04/2023. We'll defer the rest of the medical management to primary team The plan discussed with the patient's nurse. Time with Patient: Less than 30
--- NOTE | 2023-04-13 12:40 | P.CNOR ---
History of Present Illness - [facility] Consult date: 04/13/23 Requesting physician: Christophe Warner Consult reason: other (significant stenosis on C1-C3 CT) History of present illness: Patient is a 58-year-old male with a history of fragile X syndrome, developed mild delay and seizures who presented emergency department at [facility] due to syncopal episode. Due to the patient's mental state history was difficult to obtain. Patient did not have any family members/caregivers in the room during history. According to notes from the emergency room and obtained patient collapsed and had a minor head injury at the [facility] and became somew hat confused. Supposedly this was unwitnessed by staff at the [facility] patient was seen at bedside this morning sitting up eating breakfast. Patient denies any issues currently. When asked if the patient does have any neck/arm pain he states he does, but does not go into detail. Patient denies any dizziness/lightheadedness prior to him falling. Patient denies any previous orthopedic surgical history. Orthopedics was consulted by neurology for possible C1-C3 stenosis from computed tomography scan. Patient denies chest pain, fever, shortness of breath, nausea, vomiting, change in vision, loss of bowel/bladder control. Past Medical History Past Medical History: Hypertension, Seizure Disorder, Thyroid Disorder Additional Past Medical History / Comment(s): hernia, fragile X syndrome History of Any Multi-Drug Resistant Organisms: None Reported Past Surgical History: Unable to Obtain Past Anesthesia/Blood Transfusion Reactions: Unable to Obtain Past Psychological History: PTSD Smoking Status: Unknown if ever smoked Past Alcohol Use History: None Reported Past Drug Use History: None Reported Medications and Allergies Home Medications Medication Instructions Recorded Confirmed Type Cyproheptadine [Cyproheptadine HCl] 4 mg PO DAILY@79904/11/23 04/11/23 History Desmopressin [Ddavp] 0.4 mg PO HS@199904/11/23 04/11/23 History Ferrous Sulfate [Iron] 325 mg PO DAILY@79904/11/23 04/11/23 History LORazepam [Ativan] 0.5 mg PO BID PRN 04/11/23 04/11/23 History Lactulose [Constulose] 10 gm PO TID PRN 04/11/23 04/11/23 History Levothyroxine Sodium [Synthroid] 75 mcg PO DAILY@199904/11/23 04/11/23 History Loratadine [Claritin] 10 mg PO DAILY@199904/11/23 04/11/23 History Multivitamins, Thera [Multivitamin 1 tab PO DAILY@0800 04/11/23 04/11/23 History (formulary)] Naltrexone HCl [Revia] 50 mg PO BID@0800,199904/11/23 04/11/23 History OLANZapine [ZyPREXA] 5 mg PO HS@199904/11/23 04/11/23 History Pantoprazole Sodium [Protonix] 40 mg PO DAILY@0800 04/11/23 04/11/23 History Potassium Chloride ER [K-Dur 20] 20 meq PO DAILY@0800 04/11/23 04/11/23 History Psyllium Husk (with Sugar) 1 tsp PO HS PRN 04/11/23 04/11/23 History [Metamucil Powder] Venlafaxine HCl ER [Effexor XR] 150 mg PO BID@0800,199904/11/23 04/11/23 History busPIRone HCL [Buspar] 30 mg PO BID@0800,199904/11/23 04/11/23 History levETIRAcetam [Keppra] 500 mg PO BID@0800,199904/11/23 04/11/23 History polyethylene glycoL 3350 [Miralax] 17 gm PO DAILY@0800 04/11/23 04/11/23 History risperiDONE [RisperDAL] 4 mg PO BID@0800,1500 04/11/23 04/11/23 History Allergies Allergy/AdvReac Type Severity Reaction Status Date / Time carbamazepine Allergy Unknown Verified 04/11/23 12:00 red dye Allergy Unknown Verified 04/11/23 12:00 Physical Examination Inspection: Positive for advanced lordosis and kyphosis from the upper to lower cervical spine. Positive for swan-neck deformity. Negative for any significant home and fractures, erythema, ecchymosis, open wounds Sensation: Sensation is equal, symmetric, bilaterally intact at the upper and lower extremities Range of motion: Due to the patient's mental state patient is unable to follow questions. Patient was able to move bilateral upper extremities during the encounter. Patient didn't seem to have a resting tremor in his hands during exam. Motor: Exam difficult to obtain due to patient's mental state. 4+/5 in all major motor groups in bilateral upper extremities Palpation: NTTP throughout cervical and upper extremity exam Neurovascular status: Radial pulse intact, 2+. Cap refill under 3 seconds in digits of upper extremities Special tests: Negative David bilaterally. Negative Homans bilaterally. Results - Labs Labs: H & H 04/11/23 Range/Units 11:37 Hgb 14.1 (13.0-17.5) gm/dL Hct 41.4 (39.0-53.0) % Coagulation 04/11/23 Range/Units 11:37 INR 1.0 (<1.2) Result Diagrams: 04/11/23 11:37 04/11/23 11:37 - Diagnostic results CT scan - cervical: report reviewed, image reviewed (Computed tomography scan of the cervical spine was reviewed. There is definite cervical lordosis due to extensive thoracic kyphosis. Negative for any fractures/dislocations in the cervical spine. Negative for any significant stenosis/neuroforaminal stenosis. There is some degenerative disc disea) Assessment and Plan Assessment: 1. Neck pain; history of fragile X syndrome and seizures Plan: 1. Neck pain; history of seizures; fragile X syndrome- Computed tomography scan of the cervical spine was reviewed. There is definite cervical lordosis due to extensive thoracic kyphosis. Negative for any fractures/dislocations in the cervical spine. Negative for any significant stenosis/neuroforaminal stenosis. There is some degenerative disc disease as well as minimal spondylosis in the cervical spine. I did discuss the findings of exam and computed tomography scan of cervical spine with my attending, Dr. Jose. We are not concerned for any extensive stenosis in the cervical spine. At this time we're not recommending any emergent orthopedic surgical intervention. Continue conservative measures at this time with pain medication PT/OT. If there is concern for stenosis in the cervical spine, MRI would be recommended. From an orthopedic standpoint, patient is stable for discharge from the hospital. We'll continue to be available as needed. 2. Appreciate medical management 3. Pain management - tylenol 4. DVT prophylaxis recs 5. GI prophylaxis - protonix; miralax; lactulose 6. PT/OT - WBAT w/walker and assistance 7. Encourage incentive spirometer use 8. Appreciate consult Time with Patient: Less than 30
--- NOTE | 2023-04-13 13:47 | P.DS ---
Providers Date of admission: 04/11/23 12:39 Expected date of discharge: 04/13/23 Attending physician: Harvey Green Consults: 04/11/23 12:39 Consult Physician Routine Consulting Provider: Christophe Warner Consult Reason/Comments: Seizure Do you want consulting provider notified?: Yes Consult Physician Routine Consulting Provider: Geovanny Garrison Consult Reason/Comments: Bradycardia, possible syncope Do you want consulting provider notified?: Yes 04/12/23 12:59 Consult Physician Routine Consulting Provider: Brennon Jose Consult Reason/Comments: significant stenosis on C1-C3 CT Do you want consulting provider notified?: Yes Primary care physician: [facility] Course: Final Diagnoses: Collapse with fall, syncope , possible seizure, possibly cardiac related - bradycardic on admission,etiology unclear, workup in progress. Patient was on a small dose of Inderal on admission which has been discontinued. EEG reported negative for seizures. Possible cervical stenosis, orthopedic spine evaluation pending Dehydration, improved with IV fluid hydration History of seizures, Keppra level 16.4 on admission Isorhythmic A-V dissociation as per cardiology Fragile X syndrome, history of with developmental delay Hospital course:This is a 58-year-old male resident of a nursing home with past medical history significant for Fragile X syndrome with developmental delay, hypothyroidism, seizure disorder, hypertension and multiple other medical issues, admitted with change in mental status. Patient is a vague historian, with no complaints. Patient denies chest pain, palpitations or shortness of breath. Patient denies lightheadedness dizziness or focal deficits .Per ER record, patient collapsed, hit his head-witnessed by staff patient was brought in for further examination. Staff reported no nausea or vomiting, no fever or chills. No nausea, vomiting or diarrhea. nursing home staff reported patient was incontinent of urine and diarrhea which is not baseline for this patient. Head CT reported negative for intracranial hemorrhage, chronic periventricular white matter ischemic changes, no acute intracranial process, thoracic kyphosis with compensatory cervical lordosis, no acute osseous abnormality C-spine, vertebral body heights preserved, no spinal canal stenosis evident, no neural foraminal stenosis evident-further review by neurology pending. Viral studies reported negative. EKG is sinus bradycardia,telemetry sinus this morning. Chest x-ray reported negative for acute process. Afebrile, normal WBC, hemoglobin 14.1, platelets 160, electrolytes and renal function stable. Maintained on IV fluid hydration. Evaluated by cardiology, echocardiogram ordered. Evaluated by neurology, radiology films reviewed-reporting possible significant stenosis C1 to C3 and orthopedic spine consulted. EEG completed reporting abnormal, background slowing suggestive of mild encephalopathy otherwise no focal slowing, a deformed discharge or seizure on EEG. Telemetry sinus bradycardia to sinus rhythm with heart rates of 45 during the night, with occasional PVC. No seizure activity reported. No further syncopal episodes.Patient is mildly anxious in the hospital environment and with discharge back to his nursing home as soon as possible today, in a stable condition with guarded prognosis, pending final DC recommendations and clearance as per both neurology and orthopedic spine.Event monitor at DC, if unable to tolerate event monitor, loop recorder will be considered. Dobutamine stress test outpatient on 05/04/2023. The impression and plan of care has been dictated as directed. : I performed a history and examination of this patient, discussed the same with the dictator. I agree with the dictator's note ,documented as a scribe. Any additional findings or plans will be noted. Patient Condition at Discharge: Stable Plan - Discharge Summary New Discharge Prescriptions: Continue Pantoprazole Sodium [Protonix] 40 mg PO DAILY@0800 OLANZapine [ZyPREXA] 5 mg PO HS@1999 Loratadine [Claritin] 10 mg PO DAILY@1999 Lactulose [Constulose] 10 gm PO TID PRN PRN Reason: Constipation LORazepam [Ativan] 0.5 mg PO BID PRN PRN Reason: Agitation risperiDONE [RisperDAL] 4 mg PO BID@0800,1500 Levothyroxine Sodium [Synthroid] 75 mcg PO DAILY@1999 levETIRAcetam [Keppra] 500 mg PO BID@0800,1999 Desmopressin [Ddavp] 0.4 mg PO HS@2000 Cyproheptadine [Cyproheptadine HCl] 4 mg PO DAILY@0800 polyethylene glycoL 3350 [Miralax] 17 gm PO DAILY@0800 Potassium Chloride ER [K-Dur 20] 20 meq PO DAILY@0800 Naltrexone HCl [Revia] 50 mg PO BID@0800,1999 Venlafaxine HCl ER [Effexor XR] 150 mg PO BID@0800,1999 Psyllium Husk (with Sugar) [Metamucil Powder] 1 tsp PO HS PRN PRN Reason: Constipation Multivitamins, Thera [Multivitamin (formulary)] 1 tab PO DAILY@0800 Ferrous Sulfate [Iron] 325 mg PO DAILY@0800 busPIRone HCL [Buspar] 30 mg PO BID@08,1999 Discontinued Propranolol [Inderal] 5 mg PO DAILY@0800 Discharge Medication List Cyproheptadine [Cyproheptadine HCl] 4 mg PO DAILY@0804/11/23 [History] Desmopressin [Ddavp] 0.4 mg PO HS@199904/11/23 [History] Ferrous Sulfate [Iron] 325 mg PO DAILY@0804/11/23 [History] LORazepam [Ativan] 0.5 mg PO BID PRN 04/11/23 [History] Lactulose [Constulose] 10 gm PO TID PRN 04/11/23 [History] Levothyroxine Sodium [Synthroid] 75 mcg PO DAILY@199904/11/23 [History] Loratadine [Claritin] 10 mg PO DAILY@199904/11/23 [History] Multivitamins, Thera [Multivitamin (formulary)] 1 tab PO DAILY@0804/11/23 [History] Naltrexone HCl [Revia] 50 mg PO BID@08,199904/11/23 [History] OLANZapine [ZyPREXA] 5 mg PO HS@199904/11/23 [History] Pantoprazole Sodium [Protonix] 40 mg PO DAILY@0804/11/23 [History] Potassium Chloride ER [K-Dur 20] 20 meq PO DAILY@0804/11/23 [History] Psyllium Husk (with Sugar) [Metamucil Powder] 1 tsp PO HS PRN 04/11/23 [History] Venlafaxine HCl ER [Effexor XR] 150 mg PO BID@08,199904/11/23 [History] busPIRone HCL [Buspar] 30 mg PO BID@08,199904/11/23 [History] levETIRAcetam [Keppra] 500 mg PO BID@0800,199904/11/23 [History] polyethylene glycoL 3350 [Miralax] 17 gm PO DAILY@0804/11/23 [History] risperiDONE [RisperDAL] 4 mg PO BID@0800,1500 04/11/23 [History] Follow up Appointment(s)/Referral(s): Kate Vidales MD [REFERRING] - 1-2 days Geovanny Garrison DO [STAFF PHYSICIAN] - 1 Week Patient Instructions/Handouts: Seizure/Epilepsy Discharge Instructions & Follow-Up Activity/Diet/Wound Care/Special Instructions: event monitor at cardiology's office at discharge stress test 05/04 Discharge Disposition: HOME SELF-CARE
[2023-04-13] MEDS ORDERED: risperiDONE 2 MG TAB PO SCH (15:00)
[2023-04-13] MEDS ORDERED: DESMOPRESSIN 0.2 MG TAB PO SCH (20:00)
[2023-04-13] MEDS ORDERED: VENLAFAXINE HCL ER 150 MG CAP PO SCH (20:00)
[2023-04-13] MEDS ORDERED: NON FORMULARY DRUG (Buspirone Hcl [Buspar] 30 MG Tablet) PO SCH (20:00)
[2023-04-14] MEDS ORDERED: CYPROHEPTADINE 4 MG TABLET PO SCH (08:00)
== END 2023-04-13 13:30 | disposition home or self-care (01) ==
LOC: EC 10:18 → EEVIPCON 10:18 → 6NMEDSUR 12:39 → EEVIPCON 12:39 → 6NMEDSUR 16:32
PROVIDERS: ADMIT Family Medicine; ATTEND Family Medicine
DX: E86.0 Dehydration (principal); R55 Syncope and collapse; W18.09XA Striking against other object with subsequent fall, initial encounter; R41.82 Altered mental status, unspecified; Q99.2 Fragile X chromosome; R62.50 Unspecified lack of expected normal physiological development in childhood; I45.89 Other specified conduction disorders; R32 Unspecified urinary incontinence; R15.9 Full incontinence of feces; E03.9 Hypothyroidism, unspecified; F43.10 Post-traumatic stress disorder, unspecified; G40.909 Epilepsy, unspecified, not intractable, without status epilepticus; I10 Essential (primary) hypertension; R00.1 Bradycardia, unspecified; Z79.890 Hormone replacement therapy; Z79.899 Other long term (current) drug therapy; Z88.6 Allergy status to analgesic agent; Z91.09 Other allergy status, other than to drugs and biological substances
CPT/HCPCS: 96361 ×3; 96360; 99285; 36415; 94760; 95816; 93005; 93306; 80053; 80177; 83735; 84484; 85025; 85610; 85730; 81003; 87636; 71046; 72125; 70450; G0378 ×3

== ENCOUNTER 2023-07-25 09:41 | Emergency (ER) | payer OTHER ==
[2023-07-25] MEDS ORDERED: SODIUM CHLORIDE 0.9% 500 ML 500 ML IV STA (09:50)
--- NOTE | 2023-07-25 09:55 | ED ---
General Adult HPI - General Source: patient, EMS, RN notes reviewed Mode of arrival: EMS Limitations: no limitations <Saad Rehman - Last Filed: 07/25/23 13:20> <Kristopher Luz - Last Filed: 07/25/23 18:13> - General Stated complaint: mental health Time Seen by Provider: 07/25/23 09:44 - History of Present Illness Initial comments: 58-year-old male presents emergency Department via EMS with chief complaint of syncopal episode. Patient does have a history of syncope. Patient has no complaints currently other than left-sided abdominal discomfort. Patient denies any fevers or chills no chest pain or shortness of breath. Patient reportedly had a heart rate between mid 40s to 50s and was given atropine by EMS. Patient had no severe changes. He shouldn't denies fevers chills nausea vomiting diarrhea constipation. Patient is currently living [facility] home. (Saad Rehman) - Related Data Home Medications Medication Instructions Recorded Confirmed Cyproheptadine [Cyproheptadine HCl] 4 mg PO DAILY@79904/11/23 07/25/23 Desmopressin [Ddavp] 0.4 mg PO HS@199904/11/23 07/25/23 Ferrous Sulfate [Iron] 325 mg PO DAILY@79904/11/23 07/25/23 LORazepam [Ativan] 0.5 mg PO BID PRN 04/11/23 07/25/23 Lactulose [Constulose] 10 gm PO TID PRN 04/11/23 07/25/23 Levothyroxine Sodium [Synthroid] 75 mcg PO HS@199904/11/23 07/25/23 Loratadine [Claritin] 10 mg PO HS@199904/11/23 07/25/23 Multivitamins, Thera [Multivitamin 1 tab PO DAILY@79904/11/23 07/25/23 (formulary)] Naltrexone HCl [Revia] 50 mg PO BID@08,199904/11/23 07/25/23 OLANZapine [ZyPREXA] 5 mg PO HS@199904/11/23 07/25/23 Pantoprazole Sodium [Protonix] 40 mg PO DAILY@0804/11/23 07/25/23 Potassium Chloride ER [K-Dur 20] 20 meq PO DAILY@0800 04/11/23 07/25/23 Psyllium Husk (with Sugar) 1 tsp PO HS PRN 04/11/23 07/25/23 [Metamucil Powder] Venlafaxine HCl ER [Effexor XR] 150 mg PO BID@0800,199904/11/23 07/25/23 busPIRone HCL [Buspar] 30 mg PO BID@0800,199904/11/23 07/25/23 levETIRAcetam [Keppra] 500 mg PO BID@0800,199904/11/23 07/25/23 polyethylene glycoL 3350 [Miralax] 17 gm PO DAILY@0800 04/11/23 07/25/23 risperiDONE [RisperDAL] 4 mg PO BID@0800,159904/11/23 07/25/23 Ensure 1 can PO TID PRN 07/25/23 07/25/23 Allergies Allergy/AdvReac Type Severity Reaction Status Date / Time carbamazepine Allergy Unknown Verified 07/25/23 10:03 red dye Allergy Unknown Verified 07/25/23 10:03 Review of Systems ROS Other: All systems not noted in ROS Statement are negative. <Saad Rehman - Last Filed: 07/25/23 13:20> ROS Other: All systems not noted in ROS Statement are negative. <Kristopher Luz - Last Filed: 07/25/23 18:13> ROS Statement: Those systems with pertinent positive or pertinent negative responses have been documented in the HPI. Past Medical History Past Medical History: Hypertension, Seizure Disorder, Thyroid Disorder Additional Past Medical History / Comment(s): hernia, fragile X syndrome History of Any Multi-Drug Resistant Organisms: None Reported Past Surgical History: Unable to Obtain Past Anesthesia/Blood Transfusion Reactions: Unable to Obtain Past Psychological History: PTSD Smoking Status: Unknown if ever smoked Past Alcohol Use History: None Reported Past Drug Use History: None Reported <Saad Rehman - Last Filed: 07/25/23 13:20> General Exam Limitations: no limitations General appearance: alert, in no apparent distress Head exam: Present: atraumatic, normocephalic, normal inspection Eye exam: Present: normal appearance, PERRL, EOMI. Absent: scleral icterus, conjunctival injection, periorbital swelling ENT exam: Present: normal exam, normal oropharynx, mucous membranes moist Neck exam: Present: normal inspection, full ROM. Absent: tenderness, meningismus, lymphadenopathy Respiratory exam: Present: normal lung sounds bilaterally. Absent: respiratory distress, wheezes, rales, rhonchi, stridor Cardiovascular Exam: Present: regular rate, normal rhythm, normal heart sounds. Absent: systolic murmur, diastolic murmur, rubs, gallop, clicks GI/Abdominal exam: Present: soft, normal bowel sounds. Absent: distended, tenderness, guarding, rebound, rigid Neurological exam: Present: alert, CN II-XII intact, reflexes normal. Absent: motor sensory deficit <Saad Rehman - Last Filed: 07/25/23 13:20> Course Vital Signs 07/25/23 07/25/23 07/25/23 09:49 10:21 12:37 Temperature 97.6 F Pulse Rate 59 L 86 Pulse Rate [ 62 Billing Clinician ] Respiratory 18 18 Rate Blood Pressure 110/93 156/89 O2 Sat by Pulse 98 95 Oximetry 07/25/23 18:11 Temperature Pulse Rate 60 Pulse Rate [ Billing Clinician ] Respiratory 18 Rate Blood Pressure 121/43 O2 Sat by Pulse 95 Oximetry EKG Findings - EKG Comments: EKG Findings:: EKG performed at 9:51 sinus rhythm rate 65 QRS 118 QT/QTC 464/475 - EKG Results: EKG: interpreted by ERMBradley <Saad Rehman - Last Filed: 07/25/23 13:20> Medical Decision Making - Lab Data Result diagrams: 07/25/23 10:03 07/25/23 10:03 <Saad Rehman - Last Filed: 07/25/23 13:20> - Lab Data Result diagrams: 07/25/23 10:03 07/25/23 10:03 <Kristopher Luz - Last Filed: 07/25/23 18:13> - Medical Decision Making Was pt. sent in by a medical professional or institution (, PA, ROTARY ENGINE ASSEMBLER, urgent care, hospital, or group home...) When possible be specific @ -[facility] home Did you speak to anyone other than the patient for history (EMS, parent, family, police, friend...)? What history was obtained from this source @ -EMS provided prehospital treatment vitals No Did you review nursing and triage notes (agree or disagree)? Why? @ -I reviewed and agree with nursing and triage notes Were old charts reviewed (outside hosp., previous admission, EMS record, old EKG, old radiological studies, urgent care reports/EKG's, group home records)? Report findings @ -Reviewed prior consultations, A studies Differential Diagnosis (chest pain, altered mental status, abdominal pain women, abdominal pain men, vaginal bleeding, weakness, fever, dyspnea, syncope, headache, dizziness, GI bleed, back pain, seizure, CVA, palpatations, mental health, musculoskeletal)? @ -[Differential Syncope: Valvular disease, hypertrophic cardiomyopathy, pulmonary embolism, tamponade, tachycardia, bradycardia, [place], hypovolemia, hemorrhage, dissection, anemia, intracranial hemorrhage, seizure, hypoglycemia, carbon monoxide poisoning, this is not meant to be an all-inclusive list. EKG interpreted by me (3pts min.). @ -[As above X-rays interpreted by me (1pt min.). @ -Chest x-ray shows no acute process, x-ray KUB shows moderate constipation CT interpreted by me (1pt min.). @ -None done U/S interpreted by me (1pt. min.). @ -None done What testing was considered but not performed or refused? (CT, X-rays, U/S, labs)? Why? @ -None What meds were considered but not given or refused? Why? @ -None Did you discuss the management of the patient with other professionals (professionals i.e. , PA, ROTARY ENGINE ASSEMBLER, lab, RT, psych nurse, rn social work, county adviser, teacher, hazard mitigation officer, immigration case manager)? Give summary @ -No Was smoking cessation discussed for >3mins.? @ -No Was critical care preformed (if so, how long)? @ -No Were there social determinants of health that impacted care today? How? (Homelessness, low income, unemployed, alcoholism, drug addiction, transportation, low edu. Level, literacy, decrease access to med. care, fpc, rehab)? @ -No Was there de-escalation of care discussed even if they declined (Discuss DNR or withdrawal of care, Hospice)? DNR status @ -No What co-morbidities impacted this encounter? (DM, HTN, Smoking, COPD, CAD, Cancer, CVA, ARF, Chemo, Hep., AIDS, mental health diagnosis, sleep apnea, morbid obesity)? @ -Developmentally delayed, Was patient admitted / discharged? Hospital course, mention meds given and route, prescriptions, significant lab abnormalities, going to OR and other pertinent info. @ -Discharge patient's found to have moderate constipation patient did have for syncopal episode patient had recent workup for this with no acute findings work up is negative today. Patient advised take his lactulose which is when necessary [facility] home. Patient caregiver states they've been waiting med adjustment by [facility] advised to contact them from adjustment was given Zyprexa. Undiagnosed new problem with uncertain prognosis? @ -No Drug Therapy requiring intensive monitoring for toxicity (Heparin, Nitro, Insulin, Cardizem)? @ -No Were any procedures done? @ -No Diagnosis/symptom? @ -Constipation, syncope Acute, or Chronic, or Acute on Chronic? @ -Acute Uncomplicated (without systemic symptoms) or Complicated (systemic symptoms)? @ -Complicated Side effects of treatment? @ -No Exacerbation, Progression, or Severe Exacerbation? @ -No Poses a threat to life or bodily function? How? (Chest pain, [place], [place], pneumonia, PE, COPD, DKA, ARF, appy, cholecystitis, CVA, Diverticulitis, Homicidal, Suicidal, threat to staff... and all critical care pts) @ -No (Saad Rehman) - Lab Data Lab Results 07/25/23 07/25/23 07/25/23 Range/Units 10:03 10:03 10:03 WBC 4.5 (3.8-10.6) k/uL RBC 4.01 L (4.30-5.90) m/uL Hgb 13.0 (13.0-17.5) gm/dL Hct 38.6 L (39.0-53.0) % MCV 96.3 (80.0-100.0) fL MCH 32.4 (25.0-35.0) pg MCHC 33.7 (31.0-37.0) g/dL RDW 12.6 (11.5-15.5) % Plt Count 139 L (150-450) k/uL MPV 8.1 Neutrophils % 58 % Lymphocytes % 29 % Monocytes % 6 % Eosinophils % 4 % Basophils % 0 % Neutrophils # 2.6 (1.3-7.7) k/uL Lymphocytes # 1.3 (1.0-4.8) k/uL Monocytes # 0.3 (0-1.0) k/uL Eosinophils # 0.2 (0-0.7) k/uL Basophils # 0.0 (0-0.2) k/uL PT 11.4 (10.0-12.5) sec INR 1.1 (<1.2) APTT 24.4 (22.0-30.0) sec Sodium (137-145) mmol/L Potassium (3.5-5.1) mmol/L Chloride (98-107) mmol/L Carbon Dioxide (22-30) mmol/L Anion Gap mmol/L BUN (9-20) mg/dL Creatinine (0.66-1.25) mg/dL Est GFR (CKD-EPI)AfAm (>60 ml/min/1.73 sqM) Est GFR (CKD-EPI)NonAf (>60 ml/min/1.73 sqM) Glucose (74-99) mg/dL Calcium (8.4-10.2) mg/dL Magnesium (1.6-2.3) mg/dL Total Bilirubin (0.2-1.3) mg/dL AST (17-59) U/L ALT (4-49) U/L Alkaline Phosphatase (38-126) U/L Troponin I (0.000-0.034) ng/mL Total Protein (6.3-8.2) g/dL Albumin (3.5-5.0) g/dL Urine Color Colorless Urine Appearance Clear (Clear) Urine pH 5.0 (5.0-8.0) Ur Specific [place] 1.003 (1.001-1.035) Urine Protein Negative (Negative) Urine Glucose (UA) Negative (Negative) Urine Ketones Negative (Negative) Urine Blood Negative (Negative) Urine Nitrite Negative (Negative) Urine Bilirubin Negative (Negative) Urine Urobilinogen <2.0 (<2.0) mg/dL Ur Leukocyte Esterase Negative (Negative) 07/25/23 07/25/23 Range/Units 10:03 10:03 WBC (3.8-10.6) k/uL RBC (4.30-5.90) m/uL Hgb (13.0-17.5) gm/dL Hct (39.0-53.0) % MCV (80.0-100.0) fL MCH (25.0-35.0) pg MCHC (31.0-37.0) g/dL RDW (11.5-15.5) % Plt Count (150-450) k/uL MPV Neutrophils % % Lymphocytes % % Monocytes % % Eosinophils % % Basophils % % Neutrophils # (1.3-7.7) k/uL Lymphocytes # (1.0-4.8) k/uL Monocytes # (0-1.0) k/uL Eosinophils # (0-0.7) k/uL Basophils # (0-0.2) k/uL PT (10.0-12.5) sec INR (<1.2) APTT (22.0-30.0) sec Sodium 136 L (137-145) mmol/L Potassium 3.7 (3.5-5.1) mmol/L Chloride 105 (98-107) mmol/L Carbon Dioxide 22 (22-30) mmol/L Anion Gap 9 mmol/L BUN 18 (9-20) mg/dL Creatinine 0.59 L (0.66-1.25) mg/dL Est GFR (CKD-EPI)AfAm >90 (>60 ml/min/1.73 sqM) Est GFR (CKD-EPI)NonAf >90 (>60 ml/min/1.73 sqM) Glucose 107 H (74-99) mg/dL Calcium 8.3 L (8.4-10.2) mg/dL Magnesium 1.9 (1.6-2.3) mg/dL Total Bilirubin 0.4 (0.2-1.3) mg/dL AST 23 (17-59) U/L ALT 18 (4-49) U/L Alkaline Phosphatase 47 (38-126) U/L Troponin I <0.012 (0.000-0.034) ng/mL Total Protein 6.0 L (6.3-8.2) g/dL Albumin 3.4 L (3.5-5.0) g/dL Urine Color Urine Appearance (Clear) Urine pH (5.0-8.0) Ur Specific [place] (1.001-1.035) Urine Protein (Negative) Urine Glucose (UA) (Negative) Urine Ketones (Negative) Urine Blood (Negative) Urine Nitrite (Negative) Urine Bilirubin (Negative) Urine Urobilinogen (<2.0) mg/dL Ur Leukocyte Esterase (Negative) Disposition Is patient prescribed a controlled substance at d/c from ED?: No Time of Disposition: 12:30 <Saad Rehman - Last Filed: 07/25/23 13:20> Is patient prescribed a controlled substance at d/c from ED?: No <Kristopher Luz - Last Filed: 07/25/23 18:13> Clinical Impression: Vasovagal syncope, Constipation, Mood disorder Disposition: HOME SELF-CARE Condition: Stable Instructions (If sedation given, give patient instructions): Constipation (ED) Additional Instructions: Use lactulose daily as directed until regular bowel movements hold if having normal bowel movements. Please return to the Emergency Department if symptoms worsen or any other concerns. Referrals: None,Stated [REFERRING] - 1-2 days
[2023-07-25 10:18] LABS: Basophils % (A) 0 %; Eosinophils # (A) 0.2 k/uL (0-0.7); Eosinophils % (A) 4 %; HCT 38.6 % (39.0-53.0); Lymphocytes # (A) 1.3 k/uL (1.0-4.8); Lymphocytes % (A) 29 %; MCH 32.4 pg (25.0-35.0); MCHC 33.7 g/dL (31.0-37.0); MCV 96.3 fL (80.0-100.0); Mean Platelet Volume 8.1; Monocytes # (A) 0.3 k/uL (0-1.0); Monocytes % (A) 6 %; Neutrophils # (A) 2.6 k/uL (1.3-7.7); Neutrophils % (A) 58 %; Platelet Count 139 k/uL (150-450); RBC 4.01 m/uL (4.30-5.90); RDW 12.6 % (11.5-15.5); WBC 4.5 k/uL (3.8-10.6)
[2023-07-25 10:29] LABS: ALT 18 U/L (4-49); AST 23 U/L (17-59); African American GFR (CKD) >90 (>60 ml/min/1.73 sqM); Albumin 3.4 g/dL (3.5-5.0); Alkaline Phosphatase 47 U/L (38-126); Anion Gap 9 mmol/L; Blood Urea Nitrogen 18 mg/dL (9-20); Calcium 8.3 mg/dL (8.4-10.2); Carbon Dioxide 22 mmol/L (22-30); Chloride 105 mmol/L (98-107); Glucose 107 mg/dL (74-99); Magnesium 1.9 mg/dL (1.6-2.3); Non-African American GFR(CKD) >90 (>60 ml/min/1.73 sqM); Potassium 3.7 mmol/L (3.5-5.1); Sodium 136 mmol/L (137-145); Total Bilirubin 0.4 mg/dL (0.2-1.3)
[2023-07-25 10:38] VITALS: RESP 18; TEMP 97.6
[2023-07-25 10:45] LABS: INR 1.1 (<1.2); Partial Thromboplastin Time 24.4 sec (22.0-30.0); Prothrombin Time 11.4 sec (10.0-12.5)
--- NOTE | 2023-07-25 10:48 | XR ---
EXAMINATION TYPE: XR chest 2V DATE OF EXAM: 07/25/2023 COMPARISON: 04/11/23 HISTORY: Shortness of breath TECHNIQUE: Frontal and lateral views of the chest are obtained. FINDINGS: Scattered senescent parenchymal changes noted. Hyperinflation compatible with COPD. No evidence for infiltrate. No evidence for atelectasis. Heart size is stable. Mediastinal structures are stable and grossly unremarkable. No evidence for hilar prominence. Degenerative changes dorsal spine. IMPRESSION: 1. No evidence for acute pulmonary disease.
[2023-07-25 12:05] LABS: Appearance,Urine Clear (Clear); Bilirubin,Urine Negative (Negative); Blood,Urine Negative (Negative); Color,Urine Colorless; Glucose,Urine (UA) Negative (Negative); Ketones,Urine Negative (Negative); Leukocyte Esterase,Urine Negative (Negative); Nitrite,Urine Negative (Negative); Protein,Urine Negative (Negative); Specific Gravity,Urine 1.003 (1.001-1.035); Urobilinogen,Urine <2.0 mg/dL (<2.0)
--- NOTE | 2023-07-25 12:18 | XR ---
EXAMINATION TYPE: XR KUB DATE OF EXAM: 07/25/2023 COMPARISON: NONE HISTORY: Pain TECHNIQUE: Single supine KUB image of the abdomen is obtained FINDINGS: Small bowel demonstrates no evidence for dilatation or air fluid levels. Gas and fecal material is seen in non-distended colon. No convincing evidence for pneumoperitoneum. No unusual calcifications. The lung bases are clear. The osseous structures are intact. IMPRESSION: 1. Overall nonobstructive bowel gas pattern.
[2023-07-25] MEDS ORDERED: LORazepam 1 MG TAB PO STA (12:36)
[2023-07-25] MEDS ORDERED: OLANZapine 2.5 MG TAB PO STA (13:01)
[2023-07-25 18:24] VITALS: BP 121/43; PULSE 60
== END 2023-07-25 18:27 | disposition home or self-care (01) ==
LOC: EC 09:41
DX: R55 Syncope and collapse (principal); K59.00 Constipation, unspecified; F39 Unspecified mood [affective] disorder; I25.2 Old myocardial infarction; I10 Essential (primary) hypertension; E07.9 Disorder of thyroid, unspecified; Z79.890 Hormone replacement therapy; Z79.899 Other long term (current) drug therapy; Z91.041 Radiographic dye allergy status; Z88.8 Allergy status to other drugs, medicaments and biological substances
CPT/HCPCS: 36415; 71046; 74018; 80053; 81003; 83735; 84484; 85025; 85610; 85730; 93005; 99285

== ENCOUNTER 2023-07-31 11:47 | Inpatient (IN) | payer OTHER ==
[2023-07-31] MEDS ORDERED: SODIUM CHLORIDE 0.9% 1,000 ML IV STA (12:15)
[2023-07-31 12:43] LABS: Basophils % (A) 0 %; Eosinophils # (A) 0.1 k/uL (0-0.7); Eosinophils % (A) 2 %; HCT 49.1 % (39.0-53.0); Lymphocytes # (A) 1.3 k/uL (1.0-4.8); Lymphocytes % (A) 19 %; MCH 32.4 pg (25.0-35.0); MCHC 33.8 g/dL (31.0-37.0); MCV 95.9 fL (80.0-100.0); Mean Platelet Volume 7.9; Monocytes # (A) 0.3 k/uL (0-1.0); Monocytes % (A) 5 %; Neutrophils % (A) 73 %; Platelet Count 176 k/uL (150-450); RBC 5.11 m/uL (4.30-5.90); RDW 12.7 % (11.5-15.5); WBC 6.9 k/uL (3.8-10.6)
[2023-07-31 12:45] LABS: HGB 16.6 gm/dL (13.0-17.5)
[2023-07-31 12:55] LABS: ALT 20 U/L (4-49); AST 20 U/L (17-59); African American GFR (CKD) >90 (>60 ml/min/1.73 sqM); Albumin 4.8 g/dL (3.5-5.0); Alkaline Phosphatase 84 U/L (38-126); Amylase 38 U/L (30-110); Anion Gap 15 mmol/L; Blood Urea Nitrogen 13 mg/dL (9-20); Carbon Dioxide 22 mmol/L (22-30); Chloride 105 mmol/L (98-107); Glucose 100 mg/dL (74-99); Lipase 79 U/L (23-300); Non-African American GFR(CKD) >90 (>60 ml/min/1.73 sqM); Potassium 3.9 mmol/L (3.5-5.1); Sodium 142 mmol/L (137-145); Total Bilirubin 0.7 mg/dL (0.2-1.3); Total Protein 8.3 g/dL (6.3-8.2)
--- NOTE | 2023-07-31 13:01 | ED ---
General Adult HPI - General Source: patient, EMS, Caregiver Mode of arrival: EMS Limitations: no limitations, altered mental status <Alexei Rea - Last Filed: 07/31/23 13:01> <Blaire Horan - Last Filed: 07/31/23 21:07> - General Chief complaint: Abdominal Pain Stated complaint: abd pain Time Seen by Provider: 07/31/23 11:51 - History of Present Illness Initial comments: 58-year-old male with vomiting delay presents to the emergency department with chief complaint of difficulty breathing and left-sided abdominal pain. The caregiver in the room states that he started having some difficulty breathing this morning. She also states that he had an increase behavior problems today. The abdominal pain is been going on for around 1 week. (Blaire Horan) - Related Data Home Medications Medication Instructions Recorded Confirmed Cyproheptadine [Cyproheptadine HCl] 4 mg PO DAILY@79904/11/23 07/31/23 Desmopressin [Ddavp] 0.4 mg PO HS@199904/11/23 07/31/23 Ferrous Sulfate [Iron] 325 mg PO W/BRKFST@79904/11/23 07/31/23 LORazepam [Ativan] 0.5 mg PO BID PRN 04/11/23 07/31/23 Lactulose [Constulose] 10 gm PO TID PRN 04/11/23 07/31/23 Levothyroxine Sodium [Synthroid] 75 mcg PO HS@199904/11/23 07/31/23 Loratadine [Claritin] 10 mg PO HS@199904/11/23 07/31/23 Multivitamins, Thera [Multivitamin 1 tab PO DAILY@79904/11/23 07/31/23 (formulary)] Naltrexone HCl [Revia] 50 mg PO BID@799,199904/11/23 07/31/23 OLANZapine [ZyPREXA] 5 mg PO HS@199904/11/23 07/31/23 Pantoprazole Sodium [Protonix] 40 mg PO DAILY@0800 04/11/23 07/31/23 Potassium Chloride ER [K-Dur 20] 20 meq PO DAILY@79904/11/23 07/31/23 Psyllium Husk (with Sugar) 1 tsp PO HS PRN 04/11/23 07/31/23 [Metamucil Powder] Venlafaxine HCl ER [Effexor XR] 150 mg PO BID@0800,199904/11/23 07/31/23 busPIRone HCL [Buspar] 30 mg PO BID@0800,199904/11/23 07/31/23 levETIRAcetam [Keppra] 500 mg PO BID@0800,199904/11/23 07/31/23 polyethylene glycoL 3350 [Miralax] 17 gm PO DAILY@0800 04/11/23 07/31/23 risperiDONE [RisperDAL] 4 mg PO BID@0800,1600 04/11/23 07/31/23 Ensure 1 can PO TID PRN 07/25/23 07/31/23 Allergies Allergy/AdvReac Type Severity Reaction Status Date / Time carbamazepine Allergy Unknown Verified 07/31/23 13:46 red dye Allergy Unknown Verified 07/31/23 13:46 Review of Systems ROS Other: All systems not noted in ROS Statement are negative. <Alexei Rea - Last Filed: 07/31/23 13:01> ROS Other: All systems not noted in ROS Statement are negative. <Blaire Horan - Last Filed: 07/31/23 21:07> ROS Statement: Those systems with pertinent positive or pertinent negative responses have been documented in the HPI. Past Medical History Past Medical History: Hypertension, Seizure Disorder, Thyroid Disorder Additional Past Medical History / Comment(s): hernia, fragile X syndrome History of Any Multi-Drug Resistant Organisms: None Reported Past Surgical History: Unable to Obtain Past Anesthesia/Blood Transfusion Reactions: Unable to Obtain Past Psychological History: PTSD Smoking Status: Unknown if ever smoked Past Alcohol Use History: None Reported Past Drug Use History: None Reported <Alexei Rea - Last Filed: 07/31/23 13:01> General Exam Limitations: no limitations, altered mental status <Alexei Rea - Last Filed: 07/31/23 13:01> Limitations: language barrier, physical limitation General appearance: alert, in no apparent distress Head exam: Present: atraumatic, normocephalic, normal inspection Eye exam: Present: normal appearance, PERRL, EOMI. Absent: scleral icterus, conjunctival injection, periorbital swelling ENT exam: Present: normal exam, mucous membranes moist Neck exam: Present: normal inspection. Absent: tenderness, meningismus, lymphadenopathy Respiratory exam: Present: normal lung sounds bilaterally. Absent: respiratory distress, wheezes, rales, rhonchi, stridor Cardiovascular Exam: Present: regular rate, normal rhythm, normal heart sounds. Absent: systolic murmur, diastolic murmur, rubs, gallop, clicks GI/Abdominal exam: Present: soft, normal bowel sounds. Absent: distended, tenderness, guarding, rebound, rigid Extremities exam: Present: normal inspection, full ROM, normal capillary refill. Absent: tenderness, pedal edema, joint swelling, calf tenderness Back exam: Present: normal inspection Neurological exam: Present: alert Psychiatric exam: Present: normal affect, normal mood Skin exam: Present: warm, dry, intact, normal color. Absent: rash <Blaire Horan - Last Filed: 07/31/23 21:07> Course <Alexei Rea - Last Filed: 07/31/23 13:01> Vital Signs 07/31/23 07/31/23 07/31/23 11:49 13:32 15:33 Temperature 98.2 F Pulse Rate 97 81 81 Respiratory 18 18 18 Rate Blood Pressure 104/90 120/89 109/87 O2 Sat by Pulse 99 98 98 Oximetry 07/31/23 07/31/23 18:17 20:30 Temperature Pulse Rate 94 82 Respiratory 18 18 Rate Blood Pressure 152/90 130/81 O2 Sat by Pulse 96 97 Oximetry - Reevaluation(s) Reevaluation #1: 07/31/23 13:01 Patient was seen and evaluated at the bedside and reviewing EKG. Patient has diffuse T-wave inversions most notably in the lateral precordial leads. Patient was evaluated at the bedside patient denies any symptoms. He does have a history of mental delay. Staff member at the bedside states that he did complain of his heart hurting earlier today. Unclear if patient experiences any nausea or diaphoresis with the pain. Does not state that the pain radiates. Repeat EKG performed at 1251 shows worsening T-wave inversions.. There are no [place] depressions seen. Case is discussed with cardiology, Dr. Cortez who is aware of patient. (Alexei Rea) Medical Decision Making - Lab Data Result diagrams: 07/31/23 12:24 07/31/23 12:24 <Alexei Rea - Last Filed: 07/31/23 13:01> - Lab Data Result diagrams: 07/31/23 12:24 07/31/23 12:24 <Blaire Horan - Last Filed: 07/31/23 21:07> - Medical Decision Making Was pt. sent in by a medical professional or institution (, PA, LEAD [employer] SERV[employer], urgent care, hospital, or retirement...) When possible be specific @ -No Did you speak to anyone other than the patient for history (EMS, parent, family, police, friend...)? What history was obtained from this source @ -Caregiver from patient's facility Did you review nursing and triage notes (agree or disagree)? Why? @ -I reviewed and agree with nursing and triage notes Were old charts reviewed (outside hosp., previous admission, EMS record, old EKG, old radiological studies, urgent care reports/EKG's, retirement records)? Report findings @ -No old charts were reviewed Differential Diagnosis (chest pain, altered mental status, abdominal pain women, abdominal pain men, vaginal bleeding, weakness, fever, dyspnea, syncope, headache, dizziness, GI bleed, back pain, seizure, CVA, palpatations, mental health, musculoskeletal)? @ -Differential Dyspnea: Coronary syndrome, arrhythmia, tamponade, asthma, COPD, pulmonary embolism, pneumonia, pneumothorax, pulmonary effusion, anaphylaxis, diabetic ketoacidosis, flailed chest, pulmonary contusion, diaphragmatic rupture, anemia, neuromuscular, this is not meant to be an all-inclusive list. EKG interpreted by me (3pts min.). @ -Initial EKG at 1228 shows sinus rhythm, T-wave inversions in leads 2 V3 through V6 EKG at 1251 shows sinus rhythm, T-wave inversions in lead 2, 3, aVF, V2-V6 EKG at 1344 shows sinus rhythm inverted T waves in V3, V4, V5, V6 X-rays interpreted by me (1pt min.). @ -Chest x-ray shows no acute process CT interpreted by me (1pt min.). @ -CT angiogram shows no acute PE U/S interpreted by me (1pt. min.). @ -None done What testing was considered but not performed or refused? (CT, X-rays, U/S, labs)? Why? @ -None What meds were considered but not given or refused? Why? @ -None Did you discuss the management of the patient with other professionals (professionals i.e. , PA, [employer] SERV[employer], lab, RT, psych nurse, forensic social worker, rn school, teacher, chief growth officer, case filler)? Give summary @ -Dr. Rea discussed the case with Dr. Cortez, cardiology Case discussed with Dr. Cheung who is accepting the admission Was smoking cessation discussed for >3mins.? @ -No Was critical care preformed (if so, how long)? @ -No Were there social determinants of health that impacted care today? How? (Homelessness, low income, unemployed, alcoholism, drug addiction, transportation, low edu. Level, literacy, decrease access to med. care, retirement, rehab)? @ -No Was there de-escalation of care discussed even if they declined (Discuss DNR or withdrawal of care, Hospice)? DNR status @ -No What co-morbidities impacted this encounter? (DM, HTN, Smoking, COPD, CAD, Cancer, CVA, ARF, Chemo, Hep., AIDS, mental health diagnosis, sleep apnea, morbid obesity)? @ -None Was patient admitted / discharged? Hospital course, mention meds given and route, prescriptions, significant lab abnormalities, going to OR and other pertinent info. @ -admitted. Patient presented to the emergency department for chief complaint difficulty breathing, left-sided abdominal pain. Patient. will be an EKG at 28 shows t wave abnormality not Present on prior EKG 1 week ago. Repeat EKG and 20 minutes shows T-wave inversions in leads V2 through V6 and 2, 3 and aVF. Initial troponin is negative, repeat troponin 3 hours later also negative. D- dimer elevated at 1.51. CTA chest shows no acute pulmonary embolism. Laboratory studies otherwise unremarkable. Because of the acute period. Patient will be started on low-dose heparin. Patient also given 325 mg aspirin chewed. Case was discussed with Dr. Cheung who has accepted the admission. Undiagnosed new problem with uncertain prognosis? @ -No Drug Therapy requiring intensive monitoring for toxicity (Heparin, Nitro, Insulin, Cardizem)? @ -No Were any procedures done? @ -No Diagnosis/symptom? @ -T wave inversions Acute, or Chronic, or Acute on Chronic? @ -Acute Uncomplicated (without systemic symptoms) or Complicated (systemic symptoms)? @ -Uncomplicated Side effects of treatment? @ -No Exacerbation, Progression, or Severe Exacerbation? @ -No Poses a threat to life or bodily function? How? (Chest pain, [place], [place], pneumonia, PE, COPD, DKA, ARF, appy, cholecystitis, CVA, Diverticulitis, Homicidal, [place] icidal, threat to staff... and all critical care pts) @ -No (Blaire Horan) - Lab Data Lab Results 07/31/23 07/31/23 07/31/23 Range/Units 12:24 12:24 12:24 WBC 6.9 (3.8-10.6) k/uL RBC 5.11 (4.30-5.90) m/uL Hgb 16.6 D (13.0-17.5) gm/dL Hct 49.1 (39.0-53.0) % MCV 95.9 (80.0-100.0) fL MCH 32.4 (25.0-35.0) pg MCHC 33.8 (31.0-37.0) g/dL RDW 12.7 (11.5-15.5) % Plt Count 176 (150-450) k/uL MPV 7.9 Neutrophils % 73 % Lymphocytes % 19 % Monocytes % 5 % Eosinophils % 2 % Basophils % 0 % Neutrophils # 5.0 (1.3-7.7) k/uL Lymphocytes # 1.3 (1.0-4.8) k/uL Monocytes # 0.3 (0-1.0) k/uL Eosinophils # 0.1 (0-0.7) k/uL Basophils # 0.0 (0-0.2) k/uL PT (10.0-12.5) sec INR (<1.2) APTT (22.0-30.0) sec D-Dimer (<0.60) mg/L FEU Sodium 142 (137-145) mmol/L Potassium 3.9 (3.5-5.1) mmol/L Chloride 105 (98-107) mmol/L Carbon Dioxide 22 (22-30) mmol/L Anion Gap 15 mmol/L BUN 13 (9-20) mg/dL Creatinine 0.72 (0.66-1.25) mg/dL Est GFR (CKD-EPI)AfAm >90 (>60 ml/min/1.73 sqM) Est GFR (CKD-EPI)NonAf >90 (>60 ml/min/1.73 sqM) Glucose 100 H (74-99) mg/dL Plasma Lactic Acid Noe 1.5 (0.7-2.0) mmol/L Calcium 10.0 (8.4-10.2) mg/dL Magnesium (1.6-2.3) mg/dL Total Bilirubin 0.7 (0.2-1.3) mg/dL AST 20 (17-59) U/L ALT 20 (4-49) U/L Alkaline Phosphatase 84 (38-126) U/L Troponin I (0.000-0.034) ng/mL Total Protein 8.3 H (6.3-8.2) g/dL Albumin 4.8 (3.5-5.0) g/dL Amylase 38 (30-110) U/L Lipase 79 (23-300) U/L Urine Color Urine Appearance (Clear) Urine pH (5.0-8.0) Ur Specific [place] (1.001-1.035) Urine Protein (Negative) Urine Glucose (UA) (Negative) Urine Ketones (Negative) Urine Blood (Negative) Urine Nitrite (Negative) Urine Bilirubin (Negative) Urine Urobilinogen (<2.0) mg/dL Ur Leukocyte Esterase (Negative) 07/31/23 07/31/23 07/31/23 Range/Units 12:24 12:45 12:45 WBC (3.8-10.6) k/uL RBC (4.30-5.90) m/uL Hgb (13.0-17.5) gm/dL Hct (39.0-53.0) % MCV (80.0-100.0) fL MCH (25.0-35.0) pg MCHC (31.0-37.0) g/dL RDW (11.5-15.5) % Plt Count (150-450) k/uL MPV Neutrophils % % Lymphocytes % % Monocytes % % Eosinophils % % Basophils % % Neutrophils # (1.3-7.7) k/uL Lymphocytes # (1.0-4.8) k/uL Monocytes # (0-1.0) k/uL Eosinophils # (0-0.7) k/uL Basophils # (0-0.2) k/uL PT 11.2 (10.0-12.5) sec INR 1.0 (<1.2) APTT 24.7 (22.0-30.0) sec D-Dimer 1.51 H (<0.60) mg/L FEU Sodium (137-145) mmol/L Potassium (3.5-5.1) mmol/L Chloride (98-107) mmol/L Carbon Dioxide (22-30) mmol/L Anion Gap mmol/L BUN (9-20) mg/dL Creatinine (0.66-1.25) mg/dL Est GFR (CKD-EPI)AfAm (>60 ml/min/1.73 sqM) Est GFR (CKD-EPI)NonAf (>60 ml/min/1.73 sqM) Glucose (74-99) mg/dL Plasma Lactic Acid Noe (0.7-2.0) mmol/L Calcium (8.4-10.2) mg/dL Magnesium 2.2 (1.6-2.3) mg/dL Total Bilirubin (0.2-1.3) mg/dL AST (17-59) U/L ALT (4-49) U/L Alkaline Phosphatase (38-126) U/L Troponin I <0.012 (0.000-0.034) ng/mL Total Protein (6.3-8.2) g/dL Albumin (3.5-5.0) g/dL Amylase (30-110) U/L Lipase (23-300) U/L Urine Color Urine Appearance (Clear) Urine pH (5.0-8.0) Ur Specific [place] (1.001-1.035) Urine Protein (Negative) Urine Glucose (UA) (Negative) Urine Ketones (Negative) Urine Blood (Negative) Urine Nitrite (Negative) Urine Bilirubin (Negative) Urine Urobilinogen (<2.0) mg/dL Ur Leukocyte Esterase (Negative) 07/31/23 07/31/23 07/31/23 Range/Units 12:45 14:05 15:51 WBC (3.8-10.6) k/uL RBC (4.30-5.90) m/uL Hgb (13.0-17.5) gm/dL Hct (39.0-53.0) % MCV (80.0-100.0) fL MCH (25.0-35.0) pg MCHC (31.0-37.0) g/dL RDW (11.5-15.5) % Plt Count (150-450) k/uL MPV Neutrophils % % Lymphocytes % % Monocytes % % Eosinophils % % Basophils % % Neutrophils # (1.3-7.7) k/uL Lymphocytes # (1.0-4.8) k/uL Monocytes # (0-1.0) k/uL Eosinophils # (0-0.7) k/uL Basophils # (0-0.2) k/uL PT (10.0-12.5) sec INR (<1.2) APTT (22.0-30.0) sec D-Dimer (<0.60) mg/L FEU Sodium (137-145) mmol/L Potassium (3.5-5.1) mmol/L Chloride (98-107) mmol/L Carbon Dioxide (22-30) mmol/L Anion Gap mmol/L BUN (9-20) mg/dL Creatinine (0.66-1.25) mg/dL Est GFR (CKD-EPI)AfAm (>60 ml/min/1.73 sqM) Est GFR (CKD-EPI)NonAf (>60 ml/min/1.73 sqM) Glucose (74-99) mg/dL Plasma Lactic Acid Noe (0.7-2.0) mmol/L Calcium (8.4-10.2) mg/dL Magnesium (1.6-2.3) mg/dL Total Bilirubin (0.2-1.3) mg/dL AST (17-59) U/L ALT (4-49) U/L Alkaline Phosphatase (38-126) U/L Troponin I <0.012 <0.012 (0.000-0.034) ng/mL Total Protein (6.3-8.2) g/dL Albumin (3.5-5.0) g/dL Amylase (30-110) U/L Lipase (23-300) U/L Urine Color Yellow Urine Appearance Clear (Clear) Urine pH 6.5 (5.0-8.0) Ur Specific [place] 1.023 (1.001-1.035) Urine Protein Trace H (Negative) Urine Glucose (UA) Negative (Negative) Urine Ketones 2+ H (Negative) Urine Blood Negative (Negative) Urine Nitrite Negative (Negative) Urine Bilirubin Negative (Negative) Urine Urobilinogen <2.0 (<2.0) mg/dL Ur Leukocyte Esterase Negative (Negative) Disposition <Alexei Rea - Last Filed: 07/31/23 13:01> Is patient prescribed a controlled substance at d/c from ED?: No <Blaire Horan - Last Filed: 07/31/23 21:07> Clinical Impression: Abnormal EKG, Shortness of breath Disposition: ADMITTED IP TO THIS HOSP Condition: Stable
--- NOTE | 2023-07-31 13:04 | XR ---
EXAMINATION TYPE: XR chest 2V DATE OF EXAM: 07/31/2023 1:00 PM CLINICAL INDICATION:Male, 58 years old with history of kong; [facility] COMPARISON: Chest radiograph 07/25/2023 TECHNIQUE: XR chest 2V Frontal and lateral views of the chest. FINDINGS: Lungs/Pleura: There is no evidence of pleural effusion, focal consolidation, or pneumothorax. Pulmonary vascularity: Unremarkable. Heart/mediastinum: Cardiomediastinal silhouette is unremarkable. Musculoskeletal: No acute osseous pathology. IMPRESSION: No acute cardiopulmonary disease/process.
[2023-07-31] MEDS ORDERED: ASPIRIN 81 MG PO STA (13:10)
[2023-07-31 13:32] LABS: Prothrombin Time 11.2 sec (10.0-12.5)
[2023-07-31 13:33] LABS: Partial Thromboplastin Time 24.7 sec (22.0-30.0)
[2023-07-31] MEDS ORDERED: LORazepam 1 MG TAB PO STA (14:05)
[2023-07-31] MEDS ORDERED: LORazepam 2 MG/ML INJ IV STA (14:19)
[2023-07-31 14:30] LABS: Appearance,Urine Clear (Clear); Bilirubin,Urine Negative (Negative); Blood,Urine Negative (Negative); Color,Urine Yellow; Glucose,Urine (UA) Negative (Negative); Ketones,Urine 2+ (Negative); Leukocyte Esterase,Urine Negative (Negative); Nitrite,Urine Negative (Negative); PH, Urine 6.5 (5.0-8.0); Protein,Urine Trace (Negative); Specific Gravity,Urine 1.023 (1.001-1.035); Urobilinogen,Urine <2.0 mg/dL (<2.0)
--- NOTE | 2023-07-31 16:22 | CT ---
EXAMINATION TYPE: CT chest angio for PE DATE OF EXAM: 07/31/2023 COMPARISON: None HISTORY: elevated d-dimer CT DLP: 218.7 mGycm Automated exposure control for dose reduction was used. CONTRAST: CT Chest for pulmonary embolism performed with with IV Contrast, patient injected with 100 mL of Isov ue 370. FINDINGS: There is a small focal ill-defined partially consolidative/airspace density in the right upper lobe p ossibly representing a small pneumonic infiltrate. The remainder the lungs are clear. There is no ple ural effusion or pneumothorax. There is slightly suboptimal opacification of the distal segmental branches the pulmonary arteries bu t no definite filling defects are seen. There is no mediastinal, hilar or axillary adenopathy. Limited scanning the upper abdomen reveals no gross abnormality. No focal osseous lesions are seen. IMPRESSION: 1. Right upper lobe infiltrate possibly pneumonia. 2. Mildly limited study but no definite evidence of pulmonary embolism.
[2023-07-31] MEDS ORDERED: HEPARIN SODIUM 1,000 UN/ML (10ML VL) IV ONE (17:02)
[2023-07-31] MEDS ORDERED: HEPARIN SODIUM 1,000 UN/ML (10ML VL) IV PRN (17:02)
[2023-07-31] MEDS ORDERED: HEPARIN SOD,PORK IN 0.45% NACL 25,000 UNIT in 0.45% NACL 1 250ML.BAG IV SCH (17:15)
[2023-07-31] MEDS ORDERED: NALOXONE 0.4 MG/ML 1 ML VIAL IV PRN (17:52)
[2023-07-31] MEDS: ACETAMINOPHEN TAB 325 MG TAB PO PRN (18:20)
[2023-07-31] MEDS: SODIUM CHLORIDE 0.9% 1,000 ML IV SCH (18:22)
[2023-07-31] MEDS: LORazepam 0.5 MG TAB PO PRN (20:38)
[2023-07-31] MEDS: busPIRone HCl 5 MG TAB PO SCH (23:23)
[2023-07-31] MEDS: levETIRAcetam 500 MG TAB PO SCH (23:23)
[2023-07-31] MEDS: LORATADINE 10 MG TAB PO SCH (23:23)
[2023-08-01] MEDS: OLANZapine 5 MG TAB PO SCH ×2 (00:11→08:44)
[2023-08-01] MEDS: NALTREXONE HCL 50 MG TAB PO SCH ×2 (00:11→08:44)
[2023-08-01] MEDS: DESMOPRESSIN 0.2 MG TAB PO SCH ×2 (00:11→20:20)
[2023-08-01] MEDS: LORazepam 0.5 MG TAB PO PRN ×2 (02:03→13:41)
[2023-08-01] MEDS: LEVOTHYROXINE 75 MCG TAB PO SCH (05:58)
[2023-08-01] MEDS: SODIUM CHLORIDE 0.9% 1,000 ML IV SCH ×3 (06:05→17:19)
[2023-08-01] MEDS: levETIRAcetam 500 MG TAB PO SCH ×3 (08:43→20:19)
[2023-08-01] MEDS: LORATADINE 10 MG TAB PO SCH (08:43)
[2023-08-01] MEDS: busPIRone HCl 5 MG TAB PO SCH ×2 (08:43→20:19)
[2023-08-01 08:48] LABS: Basophils % (A) 0 %; Eosinophils # (A) 0.3 k/uL (0-0.7); Eosinophils % (A) 2 %; HCT 40.5 % (39.0-53.0); HGB 13.8 gm/dL (13.0-17.5); Lymphocytes # (A) 1.4 k/uL (1.0-4.8); Lymphocytes % (A) 10 %; MCH 33.3 pg (25.0-35.0); MCHC 34.2 g/dL (31.0-37.0); MCV 97.5 fL (80.0-100.0); Mean Platelet Volume 7.6; Monocytes # (A) 0.6 k/uL (0-1.0); Monocytes % (A) 4 %; Neutrophils # (A) 11.8 k/uL (1.3-7.7); Neutrophils % (A) 82 %; Platelet Count 146 k/uL (150-450); RBC 4.15 m/uL (4.30-5.90); RDW 12.4 % (11.5-15.5); WBC 14.4 k/uL (3.8-10.6)
[2023-08-01 09:05] LABS: INR 1.1 (<1.2); Partial Thromboplastin Time 41.7 sec (22.0-30.0); Prothrombin Time 11.9 sec (10.0-12.5)
[2023-08-01 11:07] VITALS: RESP 16
[2023-08-01] MEDS: PANTOPRAZOLE 40 MG/10 ML VIAL IVP SCH (12:38)
[2023-08-01] MEDS ORDERED: AZITHROMYCIN 500 MG in SODIUM CHLORIDE 0.9% 250 ML IVPB STA (13:02)
[2023-08-01] MEDS ORDERED: PNEUMONIA PROTOCOL UTILIZED 1 EACH MISC PO PRN (13:02)
[2023-08-01] MEDS: ACETAMINOPHEN TAB 325 MG TAB PO PRN (13:41)
[2023-08-01] MEDS ORDERED: ISOSORBIDE MONONITRATE ER 30 MG TAB.ER.24H PO SCH (13:45)
--- NOTE | 2023-08-01 16:27 | P.CRDCN ---
History of Present Illness Consult date: 08/01/23 Reason for Consult (text): abnormal ekg History of present illness: HISTORY OF PRESENT ILLNESS: This is a 58-year-old male with a past medical history significant for abnormal EKGs with intermittent short TN related to isorhythmic AV dissociation and possible delta wave with no history of Rgevh-[id number]-Fzglh, Fragile X Syndrome with developmental delay and psychiatric disorders, hypertension, and seizures. Patient follows in the office with Dr. Garrison. We have been asked to see the patient in consultation for abnormal EKG. Patient was recently hospitalized in April for syncope. Patient was brought into the hospital from care home for difficulty breathing and left-sided abdominal pain. Patient continues to have what appears to be left-sided abdominal pain. Patient is a unable to communicate his needs clearly to us. He is violently hitting himself in the face at the time of evaluation. Telemetry reveals sinus mechanism. Patient was last seen in the office on 07/01/2023 for preop clearance for hernia surgery. Dobutamine stress test as noted below was inconclusive. CTA coronary arteries was to be performed to further evaluate for blockages prior to clearance for surgery. Patient has been started on heparin drip. EKG reveals sinus rhythm Chest xray negative for acute process CTA of the chest revealed right upper lobe infiltrate possible pneumonia. No definite evidence of pulmonary embolism. WBC 14.4, hemoglobin 40.5, platelet count 146. INR 1.1. Electrolytes and renal function normal. Troponin negative 3. Influenza A, influenza B, RSV, Covid 19 not detected. Urinalysis 2+ ketones and trace protein. Current home cardiac medications includ none Most recent echocardiogra 04/12/2023 revealed technically difficult study. Normal left ventricular size and systolic function area mild tricuspid regurgitation with trace to mild mitral regurgitation. Thickened mitral valve leaflets. Dobutamine stress echocardiogram performed in the office on 06/28/2023 revealed nonspecific stress EKG portion secondary to baseline EKG abnormalities. Abnormal echo portion with inducible inferior ischemia. Technically an adequate study given inability to reach 85%. 72% PMH are reached. Baseline echo EF of 55%. REVIEW OF SYSTEMS: At the time of my exam: Unable to obtain from the patient. PHYSICAL EXAM: VITAL SIGNS: Reviewed. GENERAL: Well-developed in no acute distress. HEENT: Head is normocephalic. Pupils are equal, round. Sclerae anicteric. EXTREMITIES: No lower extremity edema NEUROLOGIC: Awake and alert. ASSESSMENT: Abdominal pain Abnormal EKG Isorhythmic AV dissociation History of seizure disorder History of hypertension History of Fragile X Syndrome with developmental delay and psychiatric disorder PLAN: Discontinue heparin drip In considerable patient's agitation and other medical concerns, no invasive workup is planned at this time. Start patient on Imdur 30 mg daily No need to repeat echocardiogram Nurse practitioner note has been reviewed by physician. Signing provider agrees with the documented findings, assessment, and plan of care. Past Medical History Past Medical History: Hypertension, Seizure Disorder, Thyroid Disorder Additional Past Medical History / Comment(s): hernia, fragile X syndrome History of Any Multi-Drug Resistant Organisms: None Reported Past Surgical History: Unable to Obtain Past Anesthesia/Blood Transfusion Reactions: Unable to Obtain Past Psychological History: PTSD Smoking Status: Unknown if ever smoked Past Alcohol Use History: None Reported Past Drug Use History: None Reported Medications and Allergies Home Medications Medication Instructions Recorded Confirmed Type Cyproheptadine [Cyproheptadine HCl] 4 mg PO DAILY@79904/11/23 07/31/23 History Desmopressin [Ddavp] 0.4 mg PO HS@199904/11/23 07/31/23 History Ferrous Sulfate [Iron] 325 mg PO W/BRKFST@79904/11/23 07/31/23 History LORazepam [Ativan] 0.5 mg PO BID PRN 04/11/23 07/31/23 History Lactulose [Constulose] 10 gm PO TID PRN 04/11/23 07/31/23 History Levothyroxine Sodium [Synthroid] 75 mcg PO HS@199904/11/23 07/31/23 History Loratadine [Claritin] 10 mg PO HS@199904/11/23 07/31/23 History Multivitamins, Thera [Multivitamin 1 tab PO DAILY@79904/11/23 07/31/23 History (formulary)] Naltrexone HCl [Revia] 50 mg PO BID@799,199904/11/23 07/31/23 History OLANZapine [ZyPREXA] 5 mg PO HS@199904/11/23 07/31/23 History Pantoprazole Sodium [Protonix] 40 mg PO DAILY@79904/11/23 07/31/23 History Potassium Chloride ER [K-Dur 20] 20 meq PO DAILY@0800 04/11/23 07/31/23 History Psyllium Husk (with Sugar) 1 tsp PO HS PRN 04/11/23 07/31/23 History [Metamucil Powder] Venlafaxine HCl ER [Effexor XR] 150 mg PO BID@0800,199904/11/23 07/31/23 History busPIRone HCL [Buspar] 30 mg PO BID@0800,199904/11/23 07/31/23 History levETIRAcetam [Keppra] 500 mg PO BID@0800,199904/11/23 07/31/23 History polyethylene glycoL 3350 [Miralax] 17 gm PO DAILY@0800 04/11/23 07/31/23 History risperiDONE [RisperDAL] 4 mg PO BID@0800,1600 04/11/23 07/31/23 History Ensure 1 can PO TID PRN 07/25/23 07/31/23 History Allergies Allergy/AdvReac Type Severity Reaction Status Date / Time carbamazepine Allergy Unknown Verified 07/31/23 13:46 red dye Allergy Unknown Verified 07/31/23 13:46 Physical Exam Vitals: Vital Signs Temp Pulse Pulse Resp BP BP Pulse Ox 08/01/23 12:00 68 16 113/72 96 08/01/23 08:00 71 16 111/67 95 08/01/23 04:00 98.2 F 57 L 18 84/55 96 08/01/23 00:00 71 18 116/63 96 07/31/23 22:49 98.2 F 82 18 112/64 97 07/31/23 22:00 97.8 F 71 18 116/63 96 07/31/23 20:30 82 18 130/81 97 07/31/23 18:17 94 18 152/90 96 07/31/23 15:33 81 18 109/87 98 07/31/23 13:32 81 18 120/89 98 Intake and Output 07/31/23 08/01/23 08/01/23 22:59 06:59 14:59 Intake Total 37.039 79.551 Balance 37.039 79.551 Intake: Intake, IV Titration 37.039 79.551 Amount Heparin Sod,Pork in 0.45% 37.039 79.551 NaCl 25,000 unit In 0.45 % NaCl 1 250ml.bag @ 12 UNITS/KG/HR 6.423 mls/hr IV .Q24H [facility] Rx#: [id number] Other: # Voids 1 Weight 53.524 kg Results 08/01/23 07:45 07/31/23 12:24 Cardiac Enzymes 07/31/23 Range/Units 15:51 Troponin I <0.012 (0.000-0.034) ng/mL Coagulation 07/31/23 07/31/23 08/01/23 Range/Units 12:45 23:19 07:45 PT 11.2 11.9 (10.0-12.5) sec APTT 24.7 38.6 H 41.7 H (22.0-30.0) sec CBC 08/01/23 Range/Units 07:45 WBC 14.4 H (3.8-10.6) k/uL RBC 4.15 L (4.30-5.90) m/uL Hgb 13.8 (13.0-17.5) gm/dL Hct 40.5 (39.0-53.0) % Plt Count 146 L (150-450) k/uL Current Medications Generic Name Dose Route Start Last Admin Trade Name Freq PRN Reason Stop Dose Admin Acetaminophen 650 mg 07/31/23 17:52 07/31/23 18:20 Acetaminophen Tab 325 Mg Tab PO 650 mg Q6HR PRN Administration Mild Pain or Fever > 100.5 Azithromycin 500 mg 08/02/23 09:00 Azithromycin 500 Mg Tab PO 08/03/23 09:01 DAILY [facility] Protocol Buspirone HCl 30 mg 07/31/23 22:45 08/01/23 08:43 Buspirone Hcl 5 Mg Tab PO 30 mg BID [facility] Administration Desmopressin Acetate 0.2 mg 07/31/23 22:45 08/01/23 00:11 Desmopressin 0.2 Mg Tab PO 0.2 mg HS [facility] Administration Heparin Sodium (Porcine) 0 unit 07/31/23 17:02 Heparin Sodium 1,000 Un/Ml (10ml Vl) IV PER PROTOCOL PRN Low PTT Protocol Heparin Sodium/Sodium Chloride 250 mls @ 6.423 mls/hr 07/31/23 17:15 08/01/23 10:56 25,000 unit/ Sodium Chloride IV 16 units/kg/hr .Q24H [facility] 8.564 mls/hr Titration Protocol 12 UNITS/KG/HR Sodium Chloride 1,000 mls @ 130 mls/hr 07/31/23 18:00 08/01/23 12:38 Saline 0.9% IV 130 mls/hr .Q7H42M [facility] Administration Ceftriaxone Sodium 2 gm/ 50 mls @ 100 mls/hr 08/02/23 09:00 Sodium Chloride IVPB 08/05/23 09:29 Q24HR [facility] Protocol Azithromycin 500 mg/ Sodium 250 mls @ 250 mls/hr 08/01/23 13:02 Chloride IVPB 08/01/23 14:01 ONCE STA Protocol Ceftriaxone Sodium 2 gm/ 50 mls @ 100 mls/hr 08/01/23 13:02 08/01/23 13:25 Sodium Chloride IVPB 08/01/23 13:31 100 mls/hr ONCE STA Administration Protocol Levetiracetam 500 mg 08/01/23 10:12 08/01/23 12:38 Levetiracetam 500 Mg Tab PO 500 mg BID@0800,2000 [facility] Administration Levothyroxine Sodium 75 mcg 08/01/23 06:30 08/01/23 05:58 Levothyroxine 75 Mcg Tab PO 75 mcg DAILY@0630 [facility] Administration Loratadine 10 mg 07/31/23 22:45 08/01/23 08:43 Loratadine 10 Mg Tab PO 10 mg DAILY [facility] Administration Lorazepam 0.5 mg 07/31/23 17:52 08/01/23 02:03 Lorazepam 0.5 Mg Tab PO 0.5 mg Q6HR PRN Administration Anxiety Miscellaneous Information 1 each 08/01/23 13:02 Pneumonia Protocol Utilized 1 Each Misc PO ONCE PRN Per Protocol Naloxone HCl 0.2 mg 07/31/23 17:52 Naloxone 0.4 Mg/Ml 1 Ml Vial IV Q2M PRN Opioid Reversal Naltrexone HCl 50 mg 07/31/23 22:45 08/01/23 08:44 Naltrexone Hcl 50 Mg Tab PO 50 mg DAILY [facility] Administration Olanzapine 5 mg 07/31/23 22:45 08/01/23 08:44 Olanzapine 5 Mg Tab PO 5 mg DAILY [facility] Administration Pantoprazole Sodium 40 mg 08/01/23 10:15 08/01/23 12:38 Pantoprazole 40 Mg/10 Ml Vial IVP 40 mg DAILY [facility] Administration Intake and Output 07/31/23 08/01/23 08/01/23 22:59 06:59 14:59 Intake Total 37.039 79.551 Balance 37.039 79.551 Intake: Intake, IV Titration 37.039 79.551 Amount Heparin Sod,Pork in 0.45% 37.039 79.551 NaCl 25,000 unit In 0.45 % NaCl 1 250ml.bag @ 12 UNITS/KG/HR 6.423 mls/hr IV .Q24H [facility] Rx#: [id number] Other: # Voids 1 Weight 53.524 kg 08/01/23 07:45 07/31/23 12:24
--- NOTE | 2023-08-01 16:28 | P.HPIM ---
History of Present Illness H&P Date: 08/01/23 Chief Complaint: Dyspnea This is a 58-year-old male resident of a long-term with past medical history significant for Fragile X syndrome with developmental delay, hypothyroidism, seizure disorder, hypertension and multiple other medical issues, admitted with difficulty breathing. Patient is a vague historian, with no complaints. Patient denies chest pain, palpitations or shortness of breath. Patient denies lightheadedness dizziness or focal deficits .Staff reported no nausea or vomiting, no fever or chills. No nausea, vomiting or diarrhea. No abdominal pain. D-dimer elevated, afebrile, normal WBC maintaining O2 sats in the 90s on room air. Positive cough. CTA reported right upper lobe infiltrate possibly pneumonia, no evidence of pulmonary embolism. EKG reporting T-wave inversions/Delta Wave, troponin negative 3 ,cardiology consult in place. Heparin drip initiated in the ER .Influenza A/B/RSV/COVID-19 not detected. UA negative. Maintaining O2 sats in the mid to high 90s on room air. Hematology, Chemistry panels unremarkable. Review of Systems Review of Systems ROS unable to obtain, secondary to patient poor historian and unable to provide detailed history. Past Medical History Past Medical History: Hypertension, Seizure Disorder, Thyroid Disorder Additional Past Medical History / Comment(s): hernia, fragile X syndrome History of Any Multi-Drug Resistant Organisms: None Reported Past Surgical History: Unable to Obtain Past Anesthesia/Blood Transfusion Reactions: Unable to Obtain Past Psychological History: PTSD Smoking Status: Unknown if ever smoked Past Alcohol Use History: None Reported Past Drug Use History: None Reported Medications and Allergies Home Medications Medication Instructions Recorded Confirmed Type Cyproheptadine [Cyproheptadine HCl] 4 mg PO DAILY@79904/11/23 07/31/23 History Desmopressin [Ddavp] 0.4 mg PO HS@199904/11/23 07/31/23 History Ferrous Sulfate [Iron] 325 mg PO W/BRKFST@79904/11/23 07/31/23 History LORazepam [Ativan] 0.5 mg PO BID PRN 04/11/23 07/31/23 History Lactulose [Constulose] 10 gm PO TID PRN 04/11/23 07/31/23 History Levothyroxine Sodium [Synthroid] 75 mcg PO HS@199904/11/23 07/31/23 History Loratadine [Claritin] 10 mg PO HS@199904/11/23 07/31/23 History Multivitamins, Thera [Multivitamin 1 tab PO DAILY@0800 04/11/23 07/31/23 History (formulary)] Naltrexone HCl [Revia] 50 mg PO BID@0800,199904/11/23 07/31/23 History OLANZapine [ZyPREXA] 5 mg PO HS@199904/11/23 07/31/23 History Pantoprazole Sodium [Protonix] 40 mg PO DAILY@0800 04/11/23 07/31/23 History Potassium Chloride ER [K-Dur 20] 20 meq PO DAILY@0800 04/11/23 07/31/23 History Psyllium Husk (with Sugar) 1 tsp PO HS PRN 04/11/23 07/31/23 History [Metamucil Powder] Venlafaxine HCl ER [Effexor XR] 150 mg PO BID@0800,199904/11/23 07/31/23 History busPIRone HCL [Buspar] 30 mg PO BID@0800,199904/11/23 07/31/23 History levETIRAcetam [Keppra] 500 mg PO BID@0800,199904/11/23 07/31/23 History polyethylene glycoL 3350 [Miralax] 17 gm PO DAILY@0800 04/11/23 07/31/23 History risperiDONE [RisperDAL] 4 mg PO BID@0800,1600 04/11/23 07/31/23 History Ensure 1 can PO TID PRN 07/25/23 07/31/23 History Allergies Allergy/AdvReac Type Severity Reaction Status Date / Time carbamazepine Allergy Unknown Verified 07/31/23 13:46 red dye Allergy Unknown Verified 07/31/23 13:46 Physical Exam Vitals: Vital Signs Temp Pulse Pulse Resp BP BP Pulse Ox 08/01/23 12:00 68 16 113/72 96 08/01/23 08:00 71 16 111/67 95 08/01/23 04:00 98.2 F 57 L 18 84/55 96 08/01/23 00:00 71 18 116/63 96 07/31/23 22:49 98.2 F 82 18 112/64 97 07/31/23 22:00 97.8 F 71 18 116/63 96 07/31/23 20:30 82 18 130/81 97 07/31/23 18:17 94 18 152/90 96 07/31/23 15:33 81 18 109/87 98 07/31/23 13:32 81 18 120/89 98 Intake and Output 07/31/23 08/01/23 08/01/23 22:59 06:59 14:59 Intake Total 37.039 79.551 Balance 37.039 79.551 Intake: Intake, IV Titration 37.039 79.551 Amount Heparin Sod,Pork in 0.45% 37.039 79.551 NaCl 25,000 unit In 0.45 % NaCl 1 250ml.bag @ 12 UNITS/KG/HR 6.423 mls/hr IV .Q24H [facility] Rx#: [id number] Other: # Voids 1 Weight 53.524 kg PHYSICAL EXAM: VITAL SIGNS: [As above] GENERAL: Developementally delayed, Sitting up in bed, no acute distress,mild anxiety. HEENT: Normocephalic. Conjunctivae normal. eyes normal. MMM. NECK: Supple, No JVD. No thyroid enlargement. No LNs CARDIOVASCULAR: S1, S2 regular. No murmur RESPIRATION: Unlabored, Breath sounds coarse, diminished in the bases. No crackles or wheezing. No bronchial breathing. ABDOMEN: Soft, nondistended, nontender . No guarding. no masses palpable. No ascites, No hepatosplenomegaly.Bowel sounds heard. LEGS: No edema. no swelling PSYCHIATRY: Alert and oriented X2, mood and affect normal. NERVOUS SYSTEM: Limited exam. Skin: Warm and dry, no rash. Results CBC & Chem 7: 08/01/23 07:45 07/31/23 12:24 Labs: Abnormal Lab Results - Last 24 Hours (Table) 07/31/23 07/31/23 07/31/23 Range/Units 12:45 14:05 23:19 WBC (3.8-10.6) k/uL RBC (4.30-5.90) m/uL Plt Count (150-450) k/uL Neutrophils # (1.3-7.7) k/uL APTT 38.6 H (22.0-30.0) sec D-Dimer 1.51 H (<0.60) mg/L FEU Urine Protein Trace H (Negative) Urine Ketones 2+ H (Negative) 08/01/23 08/01/23 Range/Units 07:45 07:45 WBC 14.4 H (3.8-10.6) k/uL RBC 4.15 L (4.30-5.90) m/uL Plt Count 146 L (150-450) k/uL Neutrophils # 11.8 H (1.3-7.7) k/uL APTT 41.7 H (22.0-30.0) sec D-Dimer (<0.60) mg/L FEU Urine Protein (Negative) Urine Ketones (Negative) Thrombosis Risk Factor Assmnt - Choose All That Apply Each Factor Represents 1 point: Age 41-60 years Other Risk Factors: No Other congenital or acquired thrombophilia - If yes, enter type in comment: No Thrombosis Risk Factor Assessment Total Risk Factor Score: 1 Thrombosis Risk Factor Assessment Level: Low Risk Assessment and Plan Assessment: Chest pain, abnormal EKG, negative troponins, positive cough, possible clinically acute community-acquired right upper lobe pneumonia, chest CTA reported right upper lobe infiltrate, cxr reported non-acute,afebrile with normal WBC. troponins negative History of seizures maintained on Keppra Fragile X syndrome, history of developmental delay, Plan: Continue on current medication regime ,monitoring and symptomatic treatment. IV antibiotics of Rocephin and Zithromax initiated. Discharge planning in progress for discharge soon pending cardiology recommendations as patient's anxiety escalates in the hospital. The impression and plan of care has been dictated as directed. : I performed a history and examination of this patient, discussed the same with the dictator. I agree with the dictator's note ,documented as a scribe. Any additional findings or plans will be noted.
[2023-08-01 21:46] VITALS: TEMP 98
[2023-08-02] MEDS ORDERED: SODIUM CHLORIDE 0.9% 500 ML 500 ML IV ONE (05:00)
[2023-08-02] MEDS: LEVOTHYROXINE 75 MCG TAB PO SCH (05:57)
[2023-08-02] MEDS: SODIUM CHLORIDE 0.9% 1,000 ML IV SCH (05:57)
[2023-08-02] MEDS ORDERED: AZITHROMYCIN 500 MG TAB PO SCH (09:00)
[2023-08-02] MEDS: PANTOPRAZOLE 40 MG/10 ML VIAL IVP SCH (09:40)
[2023-08-02] MEDS: NALTREXONE HCL 50 MG TAB PO SCH (09:41)
[2023-08-02] MEDS: levETIRAcetam 500 MG TAB PO SCH (09:41)
[2023-08-02] MEDS: OLANZapine 5 MG TAB PO SCH (09:41)
[2023-08-02] MEDS: LORATADINE 10 MG TAB PO SCH (09:41)
[2023-08-02] MEDS: busPIRone HCl 5 MG TAB PO SCH (09:41)
[2023-08-02 10:21] VITALS: PULSE 49
[2023-08-02] MEDS ORDERED: polyethylene glycoL 3350 17 GM POWD.PACK PO SCH (10:45)
--- NOTE | 2023-08-02 11:12 | P.DS ---
Providers Date of admission: 07/31/23 18:50 Expected date of discharge: 08/02/23 Attending physician: Mark Cheung Consults: 07/31/23 17:52 Consult Physician Routine Consulting Provider: Steve Cortez Consult Reason/Comments: abn ekg Do you want consulting provider notified?: Yes Primary care physician: [facility] Course: Final Diagnoses: Chest pain, abnormal EKG-Isorhythmic AV dissociation, negative troponins, positive cough, possible clinically acute community-acquired right upper lobe pneumonia, chest CTA reported right upper lobe infiltrate, cxr reported non- acute,afebrile with normal WBC. troponins negative History of seizure disorder, maintained on Keppra Fragile X syndrome, history of developmental delay Hospital course:This is a 58-year-old male resident of a [facility]dc with past medical history significant for Fragile X syndrome with developmental delay, hypothyroidism, seizure disorder, hypertension and multiple other medical issues, admitted with difficulty breathing. Patient is a vague historian, with no complaints. Patient denies chest pain, palpitations or shortness of breath. Patient denies lightheadedness dizziness or focal deficits .Staff reported no nausea or vomiting, no fever or chills. No nausea, vomiting or diarrhea. No abdominal pain. D-dimer elevated, afebrile, normal WBC maintaining O2 sats in the 90s on room air. Positive cough. CTA reported right upper lobe infiltrate possibly pneumonia, no evidence of pulmonary embolism. EKG reporting T-wave inversions/Delta Wave, troponin negative 3 ,cardiology consult in place. Heparin drip initiated in the ER .Influenza A/B/RSV/COVID-19 not detected. UA negative. Maintaining O2 sats in the mid to high 90s on room air. Hematology, Chemistry panels unremarkable. Maintained on IV antibiotics, with significant clinical improvement. Denies chest pain, palpitations or shortness of breath. Maintaining O2 sats in the high 90s on room air. Afebrile. Minimal cough, he appears to be swallowing any sputum production. Denies nausea, vomiting. Denies abdominal pain. Evaluated by cardiology yesterday, heparin drip was discontinued, Imdur initiated, no invasive workup planned at this time. Patient was unable to tolerate Imdur, developed hypotension, required fluid bolus and Imdur has been discontinued. Current blood pressure 124/64. Cleared by cardiology for discharge. Patient will be discharged to [facility] today in stable condition with guarded prognosis. The impression and plan of care has been dictated as directed. : I performed a history and examination of this patient, discussed the same with the dictator. I agree with the dictator's note ,documented as a scribe. Any additional findings or plans will be noted. Patient Condition at Discharge: Stable Plan - Discharge Summary New Discharge Prescriptions: New Azithromycin [Zithromax] 500 mg PO DAILY #3 tab cefUROXime axetiL [Ceftin] 500 mg PO BID 5 Days #10 tab Continue Pantoprazole Sodium [Protonix] 40 mg PO DAILY@0800 OLANZapine [ZyPREXA] 5 mg PO HS@1999 Loratadine [Claritin] 10 mg PO HS@1999 LORazepam [Ativan] 0.5 mg PO BID PRN PRN Reason: Agitation risperiDONE [RisperDAL] 4 mg PO BID@0800,1600 Levothyroxine Sodium [Synthroid] 75 mcg PO HS@1999 levETIRAcetam [Keppra] 500 mg PO BID@799,1999 Desmopressin [Ddavp] 0.4 mg PO HS@1999 Cyproheptadine [Cyproheptadine HCl] 4 mg PO DAILY@0800 polyethylene glycoL 3350 [Miralax] 17 gm PO DAILY@0800 Potassium Chloride ER [K-Dur 20] 20 meq PO DAILY@0800 Naltrexone HCl [Revia] 50 mg PO BID@08,1999 Venlafaxine HCl ER [Effexor XR] 150 mg PO BID@08,1999 Psyllium Husk (with Sugar) [Metamucil Powder] 1 tsp PO HS PRN PRN Reason: Constipation Multivitamins, Thera [Multivitamin (formulary)] 1 tab PO DAILY@0800 Ferrous Sulfate [Iron] 325 mg PO W/BRKFST@0800 busPIRone HCL [Buspar] 30 mg PO BID@00,1999 Ensure 1 can PO TID PRN PRN Reason: DECREASED APPETITE Discontinued Lactulose [Constulose] 10 gm PO TID PRN PRN Reason: Constipation Discharge Medication List Cyproheptadine [Cyproheptadine HCl] 4 mg PO DAILY@0800 04/11/23 [History] Desmopressin [Ddavp] 0.4 mg PO HS@199904/11/23 [History] Ferrous Sulfate [Iron] 325 mg PO W/BRKFST@79904/11/23 [History] LORazepam [Ativan] 0.5 mg PO BID PRN 04/11/23 [History] Levothyroxine Sodium [Synthroid] 75 mcg PO HS@199904/11/23 [History] Loratadine [Claritin] 10 mg PO HS@199904/11/23 [History] Multivitamins, Thera [Multivitamin (formulary)] 1 tab PO DAILY@79904/11/23 [History] Naltrexone HCl [Revia] 50 mg PO BID@08,199904/11/23 [History] OLANZapine [ZyPREXA] 5 mg PO HS@199904/11/23 [History] Pantoprazole Sodium [Protonix] 40 mg PO DAILY@79904/11/23 [History] Potassium Chloride ER [K-Dur 20] 20 meq PO DAILY@0804/11/23 [History] Psyllium Husk (with Sugar) [Metamucil Powder] 1 tsp PO HS PRN 04/11/23 [History] Venlafaxine HCl ER [Effexor XR] 150 mg PO BID@0800,199904/11/23 [History] busPIRone HCL [Buspar] 30 mg PO BID@0800,199904/11/23 [History] levETIRAcetam [Keppra] 500 mg PO BID@0800,199904/11/23 [History] polyethylene glycoL 3350 [Miralax] 17 gm PO DAILY@0804/11/23 [History] risperiDONE [RisperDAL] 4 mg PO BID@0800,1600 04/11/23 [History] Ensure 1 can PO TID PRN 07/25/23 [History] Azithromycin [Zithromax] 500 mg PO DAILY #3 tab 08/02/23 [Rx] cefUROXime axetiL [Ceftin] 500 mg PO BID 5 Days #10 tab 08/02/23 [Rx] Follow up Appointment(s)/Referral(s): Harvey Green Jr, [Primary Care Provider] - 3 Days Activity/Diet/Wound Care/Special Instructions: Discharge to [facility]dc
--- NOTE | 2023-08-02 11:50 | P.PN ---
Subjective Progress Note Date: 08/02/23 HISTORY OF PRESENT ILLNESS: This is a 58-year-old male with a past medical history significant for abnormal EKGs with intermittent short DC related to isorhythmic AV dissociation and possible delta wave with no history of Niokr-Mdinymspq-Bcnbe, Fragile X Syndrome with developmental delay and psychiatric disorders, hypertension, and seizures. Patient follows in the office with Dr. Garrison. We have been asked to see the patient in consultation for abnormal EKG. Patient was recently hospitalized in April for syncope. Patient was brought into the hospital from skilled nursing for difficulty breathing and left-sided abdominal pain. Patient continues to have what appears to be left-sided abdominal pain. Patient is a unable to communicate his needs clearly to us. He is violently hitting himself in the face at the time of evaluation. Telemetry reveals sinus mechanism. Patient was last seen in the office on 07/01/2023 for preop clearance for hernia surgery. Dobutamine stress test as noted below was inconclusive. CTA coronary arteries was to be performed to further evaluate for blockages prior to clearance for surgery. Patient has been started on heparin drip. EKG reveals sinus rhythm Chest xray negative for acute process CTA of the chest revealed right upper lobe infiltrate possible pneumonia. No definite evidence of pulmonary embolism. WBC 14.4, hemoglobin 40.5, platelet count 146. INR 1.1. Electrolytes and renal function normal. Troponin negative 3. Influenza A, influenza B, RSV, Covid 19 not detected. Urinalysis 2+ ketones and trace protein. Current home cardiac medications includ none Most recent echocardiogra 04/12/2023 revealed technically difficult study. Normal left ventricular size and systolic function area mild tricuspid regurgitation with trace to mild mitral regurgitation. Thickened mitral valve leaflets. Dobutamine stress echocardiogram performed in the office on 06/28/2023 revealed nonspecific stress EKG portion secondary to baseline EKG abnormalities. Abnormal echo portion with inducible inferior ischemia. Technically an adequate study given inability to reach 85%. 72% PMH are reached. Baseline echo EF of 55%. 08/02 Patient is seen today in follow-up. He is awake and alert and able to answer questions. He denies having any chest pain. In general patient is feeling better. We started Imdur yesterday but unfortunately, blood pressure dropped and this will be discontinued. Heart rate is 49, blood pressure 124/64, pulse ox 99% on room air. PHYSICAL EXAM: VITAL SIGNS: Reviewed. GENERAL: Well-developed in no acute distress. HEENT: Head is normocephalic. Pupils are equal, round. Sclerae anicteric. EXTREMITIES: No lower extremity edema NEUROLOGIC: Awake and alert. ASSESSMENT: Abdominal pain Abnormal EKG Isorhythmic AV dissociation History of seizure disorder History of hypertension History of Fragile X Syndrome with developmental delay and psychiatric disorder PLAN: Discontinue Imdur due to hypotension Patient is cleared for discharge from cardiology may follow-up in the office with Dr. Garrison as scheduled. Nurse practitioner note has been reviewed by physician. Signing provider agrees with the documented findings, assessment, and plan of care. Objective - Vital Signs Vital signs: Vital Signs Temp 98.0 F 08/01/23 20:00 Pulse 50 L 08/02/23 04:45 Resp 16 08/02/23 04:45 BP 98/70 08/02/23 05:47 Pulse Ox 99 08/02/23 04:45 FiO2 Intake & Output 08/01/23 08/02/23 08/02/23 18:59 06:59 18:59 Intake Total 197.551 Balance 197.551 Intake: Intake, IV Titration 79.551 Amount Heparin Sod,Pork in 0.45% 79.551 NaCl 25,000 unit In 0.45 % NaCl 1 250ml.bag @ 12 UNITS/KG/HR 6.423 mls/hr IV .Q24H [facility] Rx#: [id number] Oral 118 Other: # Voids 1 - Labs CBC & Chem 7: 08/01/23 07:45 07/31/23 12:24
[2023-08-02 13:18] VITALS: BP 137/63
== END 2023-08-02 15:46 | disposition home or self-care (01) | DRG 139 ==
LOC: EC 11:47 → 3SCARD 18:50
PROVIDERS: ADMIT Family Medicine; ATTEND Family Medicine
DX: J18.9 Pneumonia, unspecified organism (principal); I10 Essential (primary) hypertension; G40.909 Epilepsy, unspecified, not intractable, without status epilepticus; Z20.822 Contact with and (suspected) exposure to COVID-19; E03.9 Hypothyroidism, unspecified; F43.10 Post-traumatic stress disorder, unspecified; Q99.2 Fragile X chromosome; I45.89 Other specified conduction disorders; Z79.890 Hormone replacement therapy; Z79.899 Other long term (current) drug therapy; Z88.8 Allergy status to other drugs, medicaments and biological substances; Z91.041 Radiographic dye allergy status
CPT/HCPCS: 36415; 71046; 71275; 80053; 81003; 82150; 83605; 83690; 83735; 84484; 85025; 85379; 85610; 85730; 87449; 87636; 93005; 96361; 96365; 96366; 96375; 99285

== ENCOUNTER 2023-08-17 10:47 | Day surgery (SDC) | payer OTHER ==
[2023-08-12 11:17] VITALS: BMI 21.7
[~2023-08-17 10:47] MED LIST: ALPRAZolam 0.25 MG TAB PO PRN; ALPRAZolam 0.5 MG TAB PO PRN; ASPIRIN 325 MG TAB PO ONE; NITROGLYCERIN SL TABS 0.4 MG TAB SUBLINGUAL PRN; SODIUM CHLORIDE 0.9% 1,000 ML in EMPTY BAG 1 BAG IV SCH
[2023-08-17] MEDS ORDERED: MIDAZOLAM 2 MG/2 ML VIAL IV STA (11:24)
[2023-08-17] MEDS ORDERED: ASPIRIN 81 MG ONE (11:28)
[2023-08-17 11:52] VITALS: RESP 18; TEMP 96.4
[2023-08-17] MEDS ORDERED: PROPOFOL 10 MG/ML 20 ML VIAL IV ONE (12:33)
[2023-08-17] MEDS ORDERED: GLYCOPYRROLATE 0.2 MG/ML 2 ML VIAL ONE (12:33)
[2023-08-17] MEDS ORDERED: fentaNYL (PF) 50 MCG/ML 2 ML AMP ONE (12:33)
[2023-08-17] MEDS ORDERED: HEPARIN SODIUM,PORCINE 5,000 UNIT/ML 1 ML VIAL ONE (12:33)
[2023-08-17] MEDS ORDERED: MIDAZOLAM 2 MG/2 ML VIAL ONE (12:33)
[2023-08-17] MEDS ORDERED: LIDOCAINE 1% INJ 10MG/ML (5 ML VIAL-PF) SQ ONE (13:00)
[2023-08-17] MEDS ORDERED: IOPAMIDOL-370 100ML BTL INJ ONE (13:09)
[2023-08-17 13:12] LABS: Basophils % (A) 0 %; Eosinophils # (A) 0.5 k/uL (0-0.7); Eosinophils % (A) 6 %; HCT 42.7 % (39.0-53.0); Lymphocytes # (A) 2.4 k/uL (1.0-4.8); Lymphocytes % (A) 30 %; MCH 32.1 pg (25.0-35.0); MCHC 32.7 g/dL (31.0-37.0); MCV 98.2 fL (80.0-100.0); Mean Platelet Volume 8.5; Monocytes # (A) 0.4 k/uL (0-1.0); Monocytes % (A) 5 %; Neutrophils # (A) 4.3 k/uL (1.3-7.7); Neutrophils % (A) 56 %; Platelet Count 144 k/uL (150-450); RBC 4.35 m/uL (4.30-5.90); RDW 12.6 % (11.5-15.5); WBC 7.8 k/uL (3.8-10.6)
--- NOTE | 2023-08-17 13:13 | P.CARDCATH ---
Description of Procedure: PROCEDURES PERFORMED: Left heart catheterization, bilateral coronary angiography, ultrasound guided arterial access INDICATION: Repeat syncopal episodes, dynamic ST changes, abnormal stress test CONSENT:I have discussed the risks, benefits and alternative therapies for the above-mentioned procedure and for both sedation/analgesia as well as necessary blood product administration, if indicated, as they pertain to this patient. The patient has indicated understanding and acceptance of the risks and procedures discussed. PROCEDURE: After the risks, benefits and alternatives of the above mentioned procedure explained in detail with the patient, informed consent was obtained. Patient was taken to the catheterization lab and prepped and draped in usual fashion. Ultrasound guidance was used to assess for arterial access. 1% lidocaine was used to anesthetize the right radial artery. A 6-Montserratian sheath was placed in the right radial artery using modified Seldinger technique and ultrasound guidance. Left coronary angiography was performed with a 5-Montserratian JL 3.5 catheter and right coronary angiography was performed with a 5-Montserratian FR5 catheter in various views. A 5-Montserratian FR5 catheter was inserted into the left ventricle and pressure measurements were obtained. The right radial sheath was removed and a TR band was placed with hemostasis achieved. The patient tolerated the procedure well. Patient was transported back to the post catheterization holding area in stable condition. Conscious Sedation: Patient received sedation from anesthesia, see separate report HEMODYNAMICS: Aorta: 95/54 LV: 92/1, LVEDP 2 SELECTIVE CORONARY ARTERIOGRAPHY: LEFT MAIN: The left main is a large caliber vessel which bifurcates into the LAD and circumflex. There is no significant stenosis. LEFT ANTERIOR DESCENDING CORONARY ARTERY: LAD is a large caliber vessel which wraps around to the apex. There are mild luminal irregularities of the mid LAD, 10% and a 20% diagonal 1 stenosis. Otherwise LAD is normal. LEFT CIRCUMFLEX CORONARY ARTERY: Left circumflex is a moderate caliber vessel without significant stenosis. RIGHT CORONARY ARTERY: The right coronary artery is a large caliber vessel which gives off a PDA and PLV branch and is the dominant vessel. There is no significant stenosis. FINAL IMPRESSION: 1. Relatively normal coronary arteries other than mild luminal irregularities of the mid LAD and 20% diagonal 1 stenosis. 2. Low left sided filling pressures PLAN: 1. Aggressive risk factor modification per most recent ACC/AHA guidelines. 2. Follow-up in the office in 1-2 weeks.
[2023-08-17] MEDS ORDERED: ACETAMINOPHEN TAB 325 MG TAB ONE (14:38)
[2023-08-17 15:29] VITALS: BP 105/64; PULSE 61
== END 2023-08-17 17:26 | disposition home or self-care (01) ==
LOC: CATHCVL 10:47
PROVIDERS: ATTEND Internal Medicine
DX: I25.10 Atherosclerotic heart disease of native coronary artery without angina pectoris (principal); I10 Essential (primary) hypertension; Z87.01 Personal history of pneumonia (recurrent); E03.9 Hypothyroidism, unspecified; F43.10 Post-traumatic stress disorder, unspecified; K40.90 Unilateral inguinal hernia, without obstruction or gangrene, not specified as recurrent; Z79.1 Long term (current) use of non-steroidal anti-inflammatories (NSAID); Z79.890 Hormone replacement therapy; Z79.899 Other long term (current) drug therapy
CPT/HCPCS: 93458; 76937; 85025; C1769; C1894; J2250; J1644; J2001; J3010; J2704; Q9967

== ENCOUNTER 2023-11-15 09:54 | Emergency (ER) | payer OTHER ==
--- NOTE | 2023-11-15 10:13 | ED ---
General Adult HPI - General Chief complaint: Syncope Stated complaint: Near Syncope Time Seen by Provider: 11/15/23 10:02 Source: patient, EMS, RN notes reviewed, Caregiver Mode of arrival: EMS Limitations: altered mental status - History of Present Illness Initial comments: This is a 58 year old male who presents to the emergency department for a syncop al episode. Patient lives in a retirement and is a poor historian. Staff noticed the patient stumbling out of his bedroom. One of the staff members went to catch him and believe that he lost consciousness for about 20 seconds. He was not confused when he woke up. They do report that the patient has a history of syncopal episodes and recently had a cardiac catheterization. He has a 20% blockage which is being treated medically, and no other interventions were needed. When EMS arrived, they state that the patient was acting fine and had no complaints. Caregiver at bedside states that the patient is at his baseline. Patient currently denies any complaints such as chest pain, abdominal pain, shortness of breath, nausea, or vomiting, and is acting appropriately. - Related Data Home Medications Medication Instructions Recorded Confirmed Desmopressin [Ddavp] 0.4 mg PO HS@199904/11/23 11/15/23 Ferrous Sulfate [Iron] 325 mg PO W/BRKFST@0804/11/23 11/15/23 LORazepam [Ativan] 0.5 mg PO BID PRN 04/11/23 11/15/23 Multivitamins, Thera [Multivitamin 1 tab PO DAILY@0800 04/11/23 11/15/23 (formulary)] Venlafaxine HCl ER [Effexor XR] 150 mg PO BID@0800,199904/11/23 11/15/23 busPIRone HCL [Buspar] 30 mg PO BID@0800,199904/11/23 11/15/23 levETIRAcetam [Keppra] 500 mg PO BID@0800,199904/11/23 11/15/23 risperiDONE [RisperDAL] 4 mg PO BID@0800,1600 04/11/23 11/15/23 Cyproheptadine HCl [Periactin] 4 mg PO DAILY 08/12/23 11/15/23 Lactose-Reduced Food [Ensure Plus 240 ml PO Q4H PRN 11/15/23 11/15/23 High Protein] Lactulose 10 gm PO TID PRN 11/15/23 11/15/23 Levothyroxine Sodium [Synthroid] 75 mcg PO HS 11/15/23 11/15/23 Loratadine [Claritin] 10 mg PO HS 11/15/23 11/15/23 OLANZapine [ZyPREXA] 2.5 mg PO BID@0800,1600 11/15/23 11/15/23 OLANZapine [ZyPREXA] 5 mg PO HS@2000 11/15/23 11/15/23 Pantoprazole Sodium [Protonix] 40 mg PO DAILY@0800 11/15/23 11/15/23 Potassium Chloride [Klor-Con M20] 20 meq PO DAILY 11/15/23 11/15/23 Psyllium Husk (with Sugar) 6 gram PO HS PRN 11/15/23 11/15/23 [Metamucil Powder] diphenhydrAMINE [Benadryl] 25 mg PO DAILY 11/15/23 11/15/23 polyethylene glycoL 3350 [Miralax] 17 gm PO DAILY 11/15/23 11/15/23 Allergies Allergy/AdvReac Type Severity Reaction Status Date / Time carbamazepine Allergy Unknown Verified 11/15/23 11:52 red dye Allergy Unknown Verified 11/15/23 11:52 Review of Systems ROS Statement: Those systems with pertinent positive or pertinent negative responses have been documented in the HPI. ROS Other: All systems not noted in ROS Statement are negative. Past Medical History Past Medical History: Hypertension, Seizure Disorder, Thyroid Disorder Additional Past Medical History / Comment(s): hernia, fragile X syndrome History of Any Multi-Drug Resistant Organisms: None Reported Past Surgical History: No Surgical Hx Reported Past Anesthesia/Blood Transfusion Reactions: Unable to Obtain Additional Past Anesthesia/Blood Transfusion Reaction / Comment(s): PER THE ALF STAFF, PT HAS NOT HAD SURGERY BEFORE Past Psychological History: Anxiety, PTSD Smoking Status: Never smoker Past Alcohol Use History: None Reported Past Drug Use History: None Reported - Past Family History Mother History Unknown: Yes General Exam Limitations: altered mental status General appearance: alert, in no apparent distress Head exam: Present: atraumatic, normocephalic, normal inspection Respiratory exam: Present: normal lung sounds bilaterally. Absent: respiratory distress, wheezes, rales, rhonchi, stridor Cardiovascular Exam: Present: regular rate, normal rhythm, normal heart sounds. Absent: systolic murmur, diastolic murmur, rubs, gallop, clicks Neurological exam: Present: alert Psychiatric exam: Present: normal affect, normal mood Skin exam: Present: warm, dry, intact, normal color. Absent: rash Course Vital Signs 11/15/23 11/15/23 09:57 12:15 Temperature 96.1 F L 97.0 F L Pulse Rate 53 L 66 Respiratory 18 18 Rate Blood Pressure 152/61 115/57 O2 Sat by Pulse 96 95 Oximetry Medical Decision Making - Medical Decision Making This is a 58 year old male who presents to the emergency department for dizziness. Was pt. sent in by a medical professional or institution? @ -No Did you speak to anyone other than the patient for history? @ -EMS and caregiver provided the majority of the history. Did you review nursing and triage notes? @ -Yes, and I agree, it is accurate with regards to the patient's symptoms. Were old charts reviewed? @ -Cardiac catheterization from 08/17/23, demonstrating relatively normal coronary arteries other than mild luminal irregularities of the mid LAD and 20% diagonal 1 stenosis. Differential Diagnosis? @ -Differential Dizziness: Benign paroxysmal positional Vertigo, Menieres disease, otitis media, acoustic neuroma, vertebrobasilar insufficiency, cerebellar stroke, encephalitis, hypovolemic, arrhythmia, coronary artery syndrome, anemia, this is not meant to be an all-inclusive list EKG interpreted by me (3pts min.)? @ -EKG interpreted by me demonstrating the following: Sinus bradycardia. Ventricular rate 56 bpm, SC interval 151 ms, QRS duration 103 ms, QTc 456 ms. X-rays interpreted by me (1pt min.)? @ -Chest x-ray obtained, my interpretation identifies no localized consolidations or infiltrates. CT interpreted by me (1pt min.)? @ -Not obtained U/S interpreted by me (1pt. min.)? @ -Not obtained What testing was considered but not performed? (CT, X-rays, U/S, labs)? Why? @ -None What meds were considered but not given? Why? @ -None Did you discuss the management of the patient with other professionals? @ -No Did you reconcile home meds? @ -No Was smoking cessation discussed for >3mins.? @ -No Was critical care preformed (if so, how long)? @ -No Were there social determinants of health that impacted care today? How? (Homelessness, low income, unemployed, alcoholism, drug addiction, transportation, low edu. Level, literacy, decrease access to med. care, prison, rehab)? @ -No Was there de-escalation of care discussed even if they declined? (Discuss DNR or withdrawal of care, Hospice)? @ -No What co-morbidities impacted this encounter? (DM, HTN, Smoking, COPD, CAD, Cancer, CVA, Hep., AIDS, mental health diagnosis, sleep apnea, morbid obesity)? @ -Developmental delay, HTN Was patient admitted / discharged? @ -Discharged. Lab work demonstrates a troponin of 0.019, however this was hemolyzed. Lab work otherwise unremarkable. Chest x-ray reveals no acute process. Patient had no complaints while in the emergency department and was at his baseline per EMS and caregiver at bedside. He was ambulating around the emergency department and to the restroom without difficulty. Given that the syncopal episodes are a recurrent problem for the patient and he is currently at his baseline, he can be discharged back to his retirement and follow up with his PCP. Patient discharged home with caregiver in stable condition. Undiagnosed new problem with uncertain prognosis? @ -None Drug Therapy requiring intensive monitoring for toxicity (Heparin, Nitro, Insulin, Cardizem)? @ -None Were any procedures done? @ -None Diagnosis/symptom? @ -Syncope Acute, or Chronic, or Acute on Chronic? @ -Acute Uncomplicated (without systemic symptoms) or Complicated (systemic symptoms)? @ -Uncomplicated Side effects of treatment? @ -None Exacerbation, Progression, or Severe Exacerbation] @ -Not applicable Poses a threat to life or bodily function? @ -Unlikely Return precautions reviewed in depth, the patient is instructed to return to the emergency department with any new, worsening, or concerning symptoms. Patient and caregiver verbalized understanding. This case was discussed in detail with the attending ED physician, Dr. Lamar. Presentation, findings, and treatment plan discussed in detail as well. - Lab Data Result diagrams: 11/15/23 10:19 11/15/23 10:19 Lab Results 11/15/23 11/15/23 11/15/23 Range/Units 10:19 10:19 10:19 WBC 6.3 (3.8-10.6) k/uL RBC 4.56 (4.30-5.90) m/uL Hgb 14.8 (13.0-17.5) gm/dL Hct 45.2 (39.0-53.0) % MCV 99.0 (80.0-100.0) fL MCH 32.5 (25.0-35.0) pg MCHC 32.9 (31.0-37.0) g/dL RDW 12.4 (11.5-15.5) % Plt Count 197 (150-450) k/uL MPV 7.5 Neutrophils % 53 % Lymphocytes % 32 % Monocytes % 6 % Eosinophils % 5 % Basophils % 1 % Neutrophils # 3.3 (1.3-7.7) k/uL Lymphocytes # 2.0 (1.0-4.8) k/uL Monocytes # 0.4 (0-1.0) k/uL Eosinophils # 0.3 (0-0.7) k/uL Basophils # 0.1 (0-0.2) k/uL Sodium 142 (137-145) mmol/L Potassium 4.9 (3.5-5.1) mmol/L Chloride 112 H (98-107) mmol/L Carbon Dioxide 24 (22-30) mmol/L Anion Gap 6 mmol/L BUN 14 (9-20) mg/dL Creatinine 0.78 (0.66-1.25) mg/dL Est GFR (CKD-EPI)AfAm >90 (>60 ml/min/1.73 sqM) Est GFR (CKD-EPI)NonAf >90 (>60 ml/min/1.73 sqM) Glucose 113 H (74-99) mg/dL Calcium 9.3 (8.4-10.2) mg/dL Magnesium 2.3 (1.6-2.3) mg/dL Total Bilirubin 0.8 (0.2-1.3) mg/dL AST 41 (17-59) U/L ALT 28 (4-49) U/L Alkaline Phosphatase 67 (38-126) U/L Troponin I 0.019 (0.000-0.034) ng/mL Total Protein 7.2 (6.3-8.2) g/dL Albumin 4.3 (3.5-5.0) g/dL - Radiology Data Radiology results: report reviewed, image reviewed Disposition Clinical Impression: Syncope Disposition: HOME SELF-CARE Instructions (If sedation given, give patient instructions): Syncope (ED) Additional Instructions: Return to the emergency department with any new, worsening, or concerning symptoms. Follow up with your primary care provider in 1-2 days. Is patient prescribed a controlled substance at d/c from ED?: No Referrals: Harvey Green Jr, [Primary Care Provider] - 1-2 days Time of Disposition: 12:00
[2023-11-15 10:29] LABS: Basophils # (A) 0.1 k/uL (0-0.2); Basophils % (A) 1 %; Eosinophils # (A) 0.3 k/uL (0-0.7); Eosinophils % (A) 5 %; HCT 45.2 % (39.0-53.0); HGB 14.8 gm/dL (13.0-17.5); Lymphocytes % (A) 32 %; MCH 32.5 pg (25.0-35.0); MCHC 32.9 g/dL (31.0-37.0); Mean Platelet Volume 7.5; Monocytes # (A) 0.4 k/uL (0-1.0); Monocytes % (A) 6 %; Neutrophils # (A) 3.3 k/uL (1.3-7.7); Neutrophils % (A) 53 %; Platelet Count 197 k/uL (150-450); RBC 4.56 m/uL (4.30-5.90); RDW 12.4 % (11.5-15.5); WBC 6.3 k/uL (3.8-10.6)
[2023-11-15 10:42] LABS: ALT 28 U/L (4-49); African American GFR (CKD) >90 (>60 ml/min/1.73 sqM); Anion Gap 6 mmol/L; Blood Urea Nitrogen 14 mg/dL (9-20); Calcium 9.3 mg/dL (8.4-10.2); Carbon Dioxide 24 mmol/L (22-30); Chloride 112 mmol/L (98-107); Glucose 113 mg/dL (74-99); Non-African American GFR(CKD) >90 (>60 ml/min/1.73 sqM); Sodium 142 mmol/L (137-145); Total Bilirubin 0.8 mg/dL (0.2-1.3)
[2023-11-15 10:43] LABS: AST 41 U/L (17-59); Albumin 4.3 g/dL (3.5-5.0); Alkaline Phosphatase 67 U/L (38-126); Potassium 4.9 mmol/L (3.5-5.1); Total Protein 7.2 g/dL (6.3-8.2)
[2023-11-15 10:44] LABS: Magnesium 2.3 mg/dL (1.6-2.3)
[2023-11-15 10:56] VITALS: RESP 18
[2023-11-15] MEDS: SODIUM CHLORIDE 0.9% 1,000 ML IV STA (11:00)
--- NOTE | 2023-11-15 11:05 | XR ---
EXAMINATION TYPE: XR chest 2V DATE OF EXAM: 11/15/2023 COMPARISON: 07/31/2023 HISTORY: Shortness of breath TECHNIQUE: Frontal and lateral views of the chest are obtained. FINDINGS: Scattered senescent parenchymal changes noted. Hyperinflation compatible with COPD. No evidence for infiltrate. No evidence for atelectasis. Heart size is stable. Mediastinal structures are stable and grossly unremarkable. No evidence for hilar prominence. Degenerative changes dorsal spine. IMPRESSION: 1. No evidence for acute pulmonary disease.
[2023-11-15 12:43] VITALS: BP 115/57; PULSE 66; TEMP 97
== END 2023-11-15 12:15 | disposition home or self-care (01) ==
LOC: EC 09:54
DX: R55 Syncope and collapse (principal); R00.1 Bradycardia, unspecified; I10 Essential (primary) hypertension; E07.9 Disorder of thyroid, unspecified; Z79.890 Hormone replacement therapy; Z79.899 Other long term (current) drug therapy; F41.9 Anxiety disorder, unspecified; Z91.041 Radiographic dye allergy status; Z88.8 Allergy status to other drugs, medicaments and biological substances
CPT/HCPCS: 36415; 71046; 80053; 83735; 84484; 85025; 93005; 96360; 99285

== ENCOUNTER 2023-11-19 14:24 | Emergency (ER) | payer OTHER ==
--- NOTE | 2023-11-19 15:11 | ED ---
General Adult HPI - General Chief complaint: Nausea/Vomiting/Diarrhea Stated complaint: high blood pressure, nose bleed Time Seen by Provider: 11/19/23 14:43 Source: patient, RN notes reviewed Mode of arrival: EMS Limitations: physical limitation - History of Present Illness Initial comments: 58-year-old male presents to the emergency department for evaluation of headache, vomiting, nosebleed started today. Patient has fragile X syndrome and intellectual disability. He is admitting to headache. He has been acting more tired according to the staff at the [facility]. Patient are concerned that his blood pressure is elevated. Patient has tremors but they have been worse today and they have been unable to obtain his blood pressure because of this. His caregiver also reports that he had a nosebleed earlier today. This resolved on its own with pressure. He is not on blood thinners. - Related Data Home Medications Medication Instructions Recorded Confirmed Desmopressin [Ddavp] 0.4 mg PO HS@199904/11/23 11/15/23 Ferrous Sulfate [Iron] 325 mg PO W/BRKFST@0800 04/11/23 11/15/23 LORazepam [Ativan] 0.5 mg PO BID PRN 04/11/23 11/15/23 Multivitamins, Thera [Multivitamin 1 tab PO DAILY@0800 04/11/23 11/15/23 (formulary)] Venlafaxine HCl ER [Effexor XR] 150 mg PO BID@0800,199904/11/23 11/15/23 busPIRone HCL [Buspar] 30 mg PO BID@0800,199904/11/23 11/15/23 levETIRAcetam [Keppra] 500 mg PO BID@0800,199904/11/23 11/15/23 risperiDONE [RisperDAL] 4 mg PO BID@0800,1600 04/11/23 11/15/23 Cyproheptadine HCl [Periactin] 4 mg PO DAILY 08/12/23 11/15/23 Lactose-Reduced Food [Ensure Plus 240 ml PO Q4H PRN 11/15/23 11/15/23 High Protein] Lactulose 10 gm PO TID PRN 11/15/23 11/15/23 Levothyroxine Sodium [Synthroid] 75 mcg PO HS 11/15/23 11/15/23 Loratadine [Claritin] 10 mg PO HS 11/15/23 11/15/23 OLANZapine [ZyPREXA] 2.5 mg PO BID@0800,1600 11/15/23 11/15/23 OLANZapine [ZyPREXA] 5 mg PO HS@2000 11/15/23 11/15/23 Pantoprazole Sodium [Protonix] 40 mg PO DAILY@0800 11/15/23 11/15/23 Potassium Chloride [Klor-Con M20] 20 meq PO DAILY 11/15/23 11/15/23 Psyllium Husk (with Sugar) 6 gram PO HS PRN 11/15/23 11/15/23 [Metamucil Powder] diphenhydrAMINE [Benadryl] 25 mg PO DAILY 11/15/23 11/15/23 polyethylene glycoL 3350 [Miralax] 17 gm PO DAILY 11/15/23 11/15/23 Allergies Allergy/AdvReac Type Severity Reaction Status Date / Time carbamazepine Allergy Unknown Verified 11/19/23 15:09 red dye Allergy Unknown Verified 11/19/23 15:09 Review of Systems ROS Statement: Those systems with pertinent positive or pertinent negative responses have been documented in the HPI. ROS Other: All systems not noted in ROS Statement are negative. Past Medical History Past Medical History: Hypertension, Seizure Disorder, Thyroid Disorder Additional Past Medical History / Comment(s): hernia, fragile X syndrome History of Any Multi-Drug Resistant Organisms: None Reported Past Surgical History: No Surgical Hx Reported Past Anesthesia/Blood Transfusion Reactions: Unable to Obtain Additional Past Anesthesia/Blood Transfusion Reaction / Comment(s): PER THE [facility] STAFF, PT HAS NOT HAD SURGERY BEFORE Past Psychological History: Anxiety, PTSD Smoking Status: Never smoker Past Alcohol Use History: None Reported Past Drug Use History: None Reported - Past Family History Mother History Unknown: Yes General Exam Limitations: physical limitation General appearance: alert, in no apparent distress Head exam: Present: atraumatic, normocephalic, normal inspection Eye exam: Present: normal appearance, PERRL, EOMI. Absent: scleral icterus, conjunctival injection, periorbital swelling ENT exam: Present: normal exam, mucous membranes moist, TM's normal bilaterally, normal external ear exam Neck exam: Present: normal inspection. Absent: tenderness, meningismus, lymphadenopathy Respiratory exam: Present: normal lung sounds bilaterally. Absent: respiratory distress, wheezes, rales, rhonchi, stridor Cardiovascular Exam: Present: regular rate, normal rhythm, normal heart sounds. Absent: systolic murmur, diastolic murmur, rubs, gallop, clicks GI/Abdominal exam: Present: soft, normal bowel sounds. Absent: distended, tenderness, guarding, rebound, rigid Extremities exam: Present: normal inspection, full ROM, normal capillary refill. Absent: tenderness, pedal edema, joint swelling, calf tenderness Back exam: Present: normal inspection Neurological exam: Present: alert, CN II-XII intact Psychiatric exam: Present: normal affect, normal mood Skin exam: Present: warm, dry, intact, normal color. Absent: rash Course Vital Signs 11/19/23 11/19/23 15:05 18:51 Temperature 98.6 F 98.7 F Pulse Rate 84 82 Respiratory 18 18 Rate Blood Pressure 138/110 138/97 O2 Sat by Pulse 98 98 Oximetry Medical Decision Making - Medical Decision Making Was pt. sent in by a medical professional or institution (, PA, OVEREDGE SEWER, urgent care, hospital, or fdc...) When possible be specific @ -No Did you speak to anyone other than the patient for history (EMS, parent, family, police, friend...)? What history was obtained from this source @ -No Did you review nursing and triage notes (agree or disagree)? Why? @ -I reviewed and agree with nursing and triage notes Were old charts reviewed (outside hosp., previous admission, EMS record, old EKG, old radiological studies, urgent care reports/EKG's, fdc records)? Report findings @ -No old charts were reviewed Differential Diagnosis (chest pain, altered mental status, abdominal pain women, abdominal pain men, vaginal bleeding, weakness, fever, dyspnea, syncope, headache, dizziness, GI bleed, back pain, seizure, CVA, palpatations, mental health, musculoskeletal)? @ -Differential Headache: Migraine, tension, cluster, carbon monoxide, central venous thrombosis, pension karma temporal arteritis, acute closure glaucoma, intercranial hemorrhage, mastoiditis, sinusitis, head injury, this is not meant to be an all-inclusive list. EKG interpreted by me (3pts min.). @ -KG results limited by artifact due to the patient's tremors. EKG at 1705 shows sinus rhythm rate 77, QRS 86 X-rays interpreted by me (1pt min.). @ -Chest x-ray shows no acute process CT interpreted by me (1pt min.). @ -CT brain shows no acute abnormality U/S interpreted by me (1pt. min.). @ -None done What testing was considered but not performed or refused? (CT, X-rays, U/S, labs)? Why? @ -None What meds were considered but not given or refused? Why? @ -None Did you discuss the management of the patient with other professionals (professionals i.e. , PA, [employer]ER, lab, RT, psych nurse, child welfare social worker, transfer table operator helper, teacher, artillery officer, rehabilitation case coordinator)? Give summary @ -No Was smoking cessation discussed for >3mins.? @ -No Was critical care preformed (if so, how long)? @ -No Were there social determinants of health that impacted care today? How? (Homelessness, low income, unemployed, alcoholism, drug addiction, transportation, low edu. Level, literacy, decrease access to med. care, senior care, rehab)? @ -No Was there de-escalation of care discussed even if they declined (Discuss DNR or withdrawal of care, Hospice)? DNR status @ -No What co-morbidities impacted this encounter? (DM, HTN, Smoking, COPD, CAD, Cancer, CVA, ARF, Chemo, Hep., AIDS, mental health diagnosis, sleep apnea, morbi d obesity)? @ -None Was patient admitted / discharged? Hospital course, mention meds given and rout e, prescriptions, significant lab abnormalities, going to OR and other pertinent info. @ -Discharge. Patient presented to the emergency department with caregiver for evaluation of headache, nosebleed. The nosebleed has since resolved. Patient is still admitting to headache. Laboratory studies obtained CBC unremarkable, normal coagulation studies, CMP essentially unremarkable, negative troponin; UA shows no evidence of infectious process; COVID, influenza, RSV negative. Chest x-ray obtained which shows no evidence of infiltrate. CT brain and C-spine shows some central atrophy with no acute process. Patient's caregiver advised of these findings. Patient will be discharged home to his facility. Patient caregiver understanding agreeable plan. Patient stable at time of discharge. Case discussed with Dr. Devine Undiagnosed new problem with uncertain prognosis? @ -No Drug Therapy requiring intensive monitoring for toxicity (Heparin, Nitro, Insulin, Cardizem)? @ -No Were any procedures done? @ -No Diagnosis/symptom? @ -Headache Acute, or Chronic, or Acute on Chronic? @ -Acute Uncomplicated (without systemic symptoms) or Complicated (systemic symptoms)? @ -Uncomplicated Side effects of treatment? @ -No Exacerbation, Progression, or Severe Exacerbation? @ -No Poses a threat to life or bodily function? How? (Chest pain, USA, IA, pneumonia, PE, COPD, DKA, ARF, appy, cholecystitis, CVA, Diverticulitis, Homicidal, Suicidal, threat to staff... and all critical care pts) @ -No - Lab Data Result diagrams: 11/19/23 15:12 11/19/23 15:12 Lab Results 11/19/23 11/19/23 11/19/23 Range/Units 15:12 15:12 15:12 WBC 7.5 (3.8-10.6) k/uL RBC 4.73 (4.30-5.90) m/uL Hgb 15.2 (13.0-17.5) gm/dL Hct 45.9 (39.0-53.0) % MCV 97.1 (80.0-100.0) fL MCH 32.1 (25.0-35.0) pg MCHC 33.0 (31.0-37.0) g/dL RDW 12.1 (11.5-15.5) % Plt Count 194 (150-450) k/uL MPV 7.6 Neutrophils % 67 % Lymphocytes % 23 % Monocytes % 5 % Eosinophils % 3 % Basophils % 0 % Neutrophils # 5.0 (1.3-7.7) k/uL Lymphocytes # 1.7 (1.0-4.8) k/uL Monocytes # 0.4 (0-1.0) k/uL Eosinophils # 0.2 (0-0.7) k/uL Basophils # 0.0 (0-0.2) k/uL PT 10.4 (10.0-12.5) sec INR 0.9 (<1.2) APTT 25.7 (22.0-30.0) sec Sodium (137-145) mmol/L Potassium (3.5-5.1) mmol/L Chloride (98-107) mmol/L Carbon Dioxide (22-30) mmol/L Anion Gap mmol/L BUN (9-20) mg/dL Creatinine (0.66-1.25) mg/dL Est GFR (CKD-EPI)AfAm (>60 ml/min/1.73 sqM) Est GFR (CKD-EPI)NonAf (>60 ml/min/1.73 sqM) Glucose (74-99) mg/dL Calcium (8.4-10.2) mg/dL Magnesium (1.6-2.3) mg/dL Total Bilirubin (0.2-1.3) mg/dL AST (17-59) U/L ALT (4-49) U/L Alkaline Phosphatase (38-126) U/L Troponin I (0.000-0.034) ng/mL Total Protein (6.3-8.2) g/dL Albumin (3.5-5.0) g/dL Urine Color Colorless Urine Appearance Clear (Clear) Urine pH 6.5 (5.0-8.0) Ur Specific [place] 1.002 (1.001-1.035) Urine Protein Negative (Negative) Urine Glucose (UA) Negative (Negative) Urine Ketones Negative (Negative) Urine Blood Negative (Negative) Urine Nitrite Negative (Negative) Urine Bilirubin Negative (Negative) Urine Urobilinogen <2.0 (<2.0) mg/dL Ur Leukocyte Esterase Negative (Negative) Influenza Type A (PCR) (Not Detectd) Influenza Type B (PCR) (Not Detectd) RSV (PCR) (Not Detectd) SARS-CoV-2 (PCR) (Not Detectd) 11/19/23 11/19/23 11/19/23 Range/Units 15:12 15:12 15:12 WBC (3.8-10.6) k/uL RBC (4.30-5.90) m/uL Hgb (13.0-17.5) gm/dL Hct (39.0-53.0) % MCV (80.0-100.0) fL MCH (25.0-35.0) pg MCHC (31.0-37.0) g/dL RDW (11.5-15.5) % Plt Count (150-450) k/uL MPV Neutrophils % % Lymphocytes % % Monocytes % % Eosinophils % % Basophils % % Neutrophils # (1.3-7.7) k/uL Lymphocytes # (1.0-4.8) k/uL Monocytes # (0-1.0) k/uL Eosinophils # (0-0.7) k/uL Basophils # (0-0.2) k/uL PT (10.0-12.5) sec INR (<1.2) APTT (22.0-30.0) sec Sodium 142 (137-145) mmol/L Potassium 4.1 (3.5-5.1) mmol/L Chloride 108 H (98-107) mmol/L Carbon Dioxide 28 (22-30) mmol/L Anion Gap 6 mmol/L BUN 7 L (9-20) mg/dL Creatinine 0.52 L (0.66-1.25) mg/dL Est GFR (CKD-EPI)AfAm >90 (>60 ml/min/1.73 sqM) Est GFR (CKD-EPI)NonAf >90 (>60 ml/min/1.73 sqM) Glucose 110 H (74-99) mg/dL Calcium 9.5 (8.4-10.2) mg/dL Magnesium 2.3 (1.6-2.3) mg/dL Total Bilirubin 0.7 (0.2-1.3) mg/dL AST 29 (17-59) U/L ALT 22 (4-49) U/L Alkaline Phosphatase 98 (38-126) U/L Troponin I <0.012 (0.000-0.034) ng/mL Total Protein 7.6 (6.3-8.2) g/dL Albumin 4.6 (3.5-5.0) g/dL Urine Color Urine Appearance (Clear) Urine pH (5.0-8.0) Ur Specific [place] (1.001-1.035) Urine Protein (Negative) Urine Glucose (UA) (Negative) Urine Ketones (Negative) Urine Blood (Negative) Urine Nitrite (Negative) Urine Bilirubin (Negative) Urine Urobilinogen (<2.0) mg/dL Ur Leukocyte Esterase (Negative) Influenza Type A (PCR) Not Detected (Not Detectd) Influenza Type B (PCR) Not Detected (Not Detectd) RSV (PCR) Not Detected (Not Detectd) SARS-CoV-2 (PCR) Not Detected (Not Detectd) Disposition Clinical Impression: Headache, Viral syndrome, Vomiting Disposition: HOME SELF-CARE Condition: Stable Instructions (If sedation given, give patient instructions): Acute Headache (ED), Acute Nausea and Vomiting (ED) Additional Instructions: Please follow up with Dr. Green. Return to the emergency department for new or worsening symptoms. Is patient prescribed a controlled substance at d/c from ED?: No Referrals: Harvey Green Jr, DO [Primary Care Provider] - 1-2 days
[2023-11-19 15:22] VITALS: RESP 18
[2023-11-19 15:50] LABS: Basophils % (A) 0 %; Eosinophils # (A) 0.2 k/uL (0-0.7); Eosinophils % (A) 3 %; HCT 45.9 % (39.0-53.0); HGB 15.2 gm/dL (13.0-17.5); Lymphocytes # (A) 1.7 k/uL (1.0-4.8); Lymphocytes % (A) 23 %; MCH 32.1 pg (25.0-35.0); MCV 97.1 fL (80.0-100.0); Mean Platelet Volume 7.6; Monocytes # (A) 0.4 k/uL (0-1.0); Monocytes % (A) 5 %; Neutrophils % (A) 67 %; Platelet Count 194 k/uL (150-450); RBC 4.73 m/uL (4.30-5.90); RDW 12.1 % (11.5-15.5); WBC 7.5 k/uL (3.8-10.6)
[2023-11-19 15:57] LABS: ALT 22 U/L (4-49); AST 29 U/L (17-59); African American GFR (CKD) >90 (>60 ml/min/1.73 sqM); Albumin 4.6 g/dL (3.5-5.0); Alkaline Phosphatase 98 U/L (38-126); Anion Gap 6 mmol/L; Blood Urea Nitrogen 7 mg/dL (9-20); Calcium 9.5 mg/dL (8.4-10.2); Carbon Dioxide 28 mmol/L (22-30); Chloride 108 mmol/L (98-107); Glucose 110 mg/dL (74-99); Magnesium 2.3 mg/dL (1.6-2.3); Non-African American GFR(CKD) >90 (>60 ml/min/1.73 sqM); Sodium 142 mmol/L (137-145); Total Bilirubin 0.7 mg/dL (0.2-1.3); Total Protein 7.6 g/dL (6.3-8.2)
[2023-11-19 16:09] LABS: INR 0.9 (<1.2); Partial Thromboplastin Time 25.7 sec (22.0-30.0); Prothrombin Time 10.4 sec (10.0-12.5)
--- NOTE | 2023-11-19 16:14 | XR ---
EXAMINATION TYPE: XR chest 2V DATE OF EXAM: 11/19/2023 COMPARISON: 11/15/2023 HISTORY: 58-year-old male with chest pain TECHNIQUE: AP and lateral views FINDINGS: Heart upper limits of normal in size. Old healed left-sided rib fracture deformities. No consolidatio n or pleural effusion. Mild hyperinflation. IMPRESSION: Mild hyperinflation may relate to depth of inspiration or underlying emphysema. Borderline heart size .
[2023-11-19 16:18] LABS: Appearance,Urine Clear (Clear); Bilirubin,Urine Negative (Negative); Blood,Urine Negative (Negative); Color,Urine Colorless; Glucose,Urine (UA) Negative (Negative); Ketones,Urine Negative (Negative); Leukocyte Esterase,Urine Negative (Negative); Nitrite,Urine Negative (Negative); PH, Urine 6.5 (5.0-8.0); Protein,Urine Negative (Negative); Specific Gravity,Urine 1.002 (1.001-1.035); Urobilinogen,Urine <2.0 mg/dL (<2.0)
[2023-11-19 16:53] LABS: Potassium 4.1 mmol/L (3.5-5.1)
--- NOTE | 2023-11-19 17:50 | CT ---
EXAMINATION TYPE: CT brain wo con DATE OF EXAM: 11/19/2023 COMPARISON: 04/11/2023 HISTORY: 58-year-old male with headache Pt arrives with elevated BP and headache and nose bleed. Pt l imited on following commands to hold still and not move. TECHNIQUE: Examination was done in axial plane without intravenous contrast. Coronal and sagittal r econstructions performed. CT DLP: 1297.4 mGycm Automated exposure control for dose reduction was used. FINDINGS: There is motion artifact causing some limitation in assessment. There is no evidence of acute intrac ranial hemorrhage, acute ischemic changes, mass, mass-effect, or extra-axial fluid collection. There is no effacement of cerebral sulci or basal subarachnoid cisterns. There is no midline shift. Flowers -white matter distinction is preserved. Mild ventricular prominence is unchanged. Trace mucosal thickening left maxillary sinus and ethmoid air cells. There is motion artifact limitin g the evaluation. IMPRESSION: Similar mild ventricular prominence likely due to central cerebral atrophy. No acute intracranial abn ormality seen.
[2023-11-19 18:57] VITALS: BP 138/97; PULSE 82; TEMP 98.7
== END 2023-11-19 18:52 | disposition home or self-care (01) ==
LOC: EC 14:24
DX: B34.9 Viral infection, unspecified (principal); G31.89 Other specified degenerative diseases of nervous system; Z88.8 Allergy status to other drugs, medicaments and biological substances; Z91.041 Radiographic dye allergy status
CPT/HCPCS: 36415; 70450; 71046; 80053; 81003; 83735; 84484; 85025; 85610; 85730; 87636; 93005; 99285

== ENCOUNTER 2024-04-20 09:20 | Emergency (ER) | payer OTHER ==
[2024-04-20] MEDS ORDERED: SODIUM CHLORIDE 0.9% 1,000 ML BAG ONE (11:14)
--- NOTE | 2024-05-29 13:59 | CT ---
EXAM: CT brain without contrast. CT C-spine without contrast. DATE: 04/20/2024 12:17 INDICATION: Patient age:TANJA VOGEL : 1965 Reason for study: Fall COMPARISON: None, please note PACS downtime occurred during the radiologist interpretation of these i mages with limited priors/reports.. TECHNIQUE: Multiple axial CT images of the brain were obtained without IV contrast. Axial CT images from the skull base to the inferior aspect of T2 we obtained without intravenous cont rast. Coronal and sagittal reformatted images were also reviewed. One or more CT dose reduction strategies were utilized during this examination. Total DLP administered was 1298.6 mGycm . FINDINGS: CT BRAIN: Extra-axial spaces: No abnormal extra-axial fluid collections. Ventricular system: Within normal limits Cerebral parenchyma: No acute intraparenchymal hemorrhage or mass effect. The mortensen-white junction is well differentiated. Cerebellum: Unremarkable. Mass effect: No evidence of midline shift. Intracranial vasculature: unremarkable Soft tissues: Normal. Calvarium/osseous structures: No depressed skull fracture. Paranasal sinuses and mastoid air cells: Clear. Visualized orbits: Orbital contents are intact. CT CERVICAL SPINE: Fracture: Endplate deformity of this T4 vertebrae with step-off series 303 image 51 and 304 image 32. Osseous structures: Multilevel degenerative disc disease changes with endplate spurring and disc oste ophyte complex's. Vertebral alignment: Increased kyphotic curvature of the upper thoracic spine. Spinal canal/Neural Foramina: No evidence of significant spinal canal narrowing. No evidence of signi ficant neural foramina narrowing. Neck soft tissues: Prevertebral soft tissues are within normal limits. Other: The airway is patent. Right upper lung airspace opacity and/or mass partially visualized measu ring up to 16 x 11 mm. IMPRESSION: No acute intracranial process. Superior endplate deformities at T4. Further evaluation with MRI is recommended to exclude acute frac ture. Mild multilevel degenerative disc disease. Right upper lung airspace opacity partially in the [id number]. Further workup of the chest recomme nded correlate for acute symptoms. This can be an short-term follow-up outpatient exam. [facility], , 05/29/2024 1:57 PM
== END 2024-04-20 14:23 | disposition home or self-care (01) ==
LOC: EC 09:20
CPT/HCPCS: 70450; 72125; 96360; 96361; 99284

== ENCOUNTER 2024-06-07 15:51 | Emergency (ER) | payer OTHER ==
[2024-06-07 16:06] VITALS: TEMP 98.1
--- NOTE | 2024-06-07 16:37 | ED ---
Abdominal Pain HPI - General Chief Complaint: GI Bleed Stated Complaint: black vomit, L side pain Time Seen by Provider: 06/07/24 16:07 Source: patient, RN notes reviewed, Caregiver Mode of arrival: wheelchair Limitations: physical limitation - History of Present Illness Initial Comments: This is a 59-year-old male who presents to the emergency department for abdominal pain. Patient is developmentally delayed and presents with his caregiver who advised that he has been complaining of left-sided abdominal pain since about 2pm this afternoon. He then proceeded to have an episode of vomiting that is described as black and appeared like coffee grounds. They also found black vomit in his nose. Unsure if he has had any additional episodes of emesis since. Patient does not currently feel nauseous, but is very limited in history he can provide. He is still complaining of left upper quadrant pain. Patient is not taking any blood thinners. Caregiver is unsure when his last bowel movement was or if there was any blood in the stool or dark/tarry stools. MD Complaint: abdominal pain - Related Data Home Medications Medication Instructions Recorded Confirmed Desmopressin [Ddavp] 0.4 mg PO HS@199904/11/23 11/15/23 Ferrous Sulfate [Iron] 325 mg PO W/BRKFST@0800 04/11/23 11/15/23 LORazepam [Ativan] 0.5 mg PO BID PRN 04/11/23 11/15/23 Multivitamins, Thera [Multivitamin 1 tab PO DAILY@0800 04/11/23 11/15/23 (formulary)] Venlafaxine HCl ER [Effexor XR] 150 mg PO BID@0800,199904/11/23 11/15/23 busPIRone HCL [Buspar] 30 mg PO BID@0800,199904/11/23 11/15/23 levETIRAcetam [Keppra] 500 mg PO BID@0800,199904/11/23 11/15/23 risperiDONE [RisperDAL] 4 mg PO BID@0800,1600 04/11/23 11/15/23 Cyproheptadine HCl [Periactin] 4 mg PO DAILY 08/12/23 11/15/23 Lactose-Reduced Food [Ensure Plus 240 ml PO Q4H PRN 11/15/23 11/15/23 High Protein] Lactulose 10 gm PO TID PRN 11/15/23 11/15/23 Levothyroxine Sodium [Synthroid] 75 mcg PO HS 11/15/23 11/15/23 Loratadine [Claritin] 10 mg PO HS 11/15/23 11/15/23 OLANZapine [ZyPREXA] 2.5 mg PO BID@0800,1600 11/15/23 11/15/23 OLANZapine [ZyPREXA] 5 mg PO HS@2000 11/15/23 11/15/23 Pantoprazole Sodium [Protonix] 40 mg PO DAILY@0800 11/15/23 11/15/23 Potassium Chloride [Klor-Con M20] 20 meq PO DAILY 11/15/23 11/15/23 Psyllium Husk (with Sugar) 6 gram PO HS PRN 11/15/23 11/15/23 [Metamucil Powder] diphenhydrAMINE [Benadryl] 25 mg PO DAILY 11/15/23 11/15/23 polyethylene glycoL 3350 [Miralax] 17 gm PO DAILY 11/15/23 11/15/23 Allergies Allergy/AdvReac Type Severity Reaction Status Date / Time carbamazepine Allergy Unknown Verified 06/07/24 16:06 red dye Allergy Unknown Verified 06/07/24 16:06 Review of Systems ROS Statement: Those systems with pertinent positive or pertinent negative responses have been documented in the HPI. ROS Other: All systems not noted in ROS Statement are negative. Past Medical History Past Medical History: Hypertension, Seizure Disorder, Thyroid Disorder Additional Past Medical History / Comment(s): hernia, fragile X syndrome History of Any Multi-Drug Resistant Organisms: None Reported Past Surgical History: No Surgical Hx Reported Past Anesthesia/Blood Transfusion Reactions: Unable to Obtain Additional Past Anesthesia/Blood Transfusion Reaction / Comment(s): PER THE NURSING HOME STAFF, PT HAS NOT HAD SURGERY BEFORE Past Psychological History: Anxiety, PTSD Smoking Status: Never smoker Past Alcohol Use History: None Reported Past Drug Use History: None Reported - Past Family History Mother History Unknown: Yes General Exam Limitations: no limitations General appearance: alert, in no apparent distress Head exam: Present: atraumatic, normocephalic, normal inspection Respiratory exam: Present: normal lung sounds bilaterally. Absent: respiratory distress, wheezes, rales, rhonchi, stridor Cardiovascular Exam: Present: regular rate, normal rhythm, normal heart sounds. Absent: systolic murmur, diastolic murmur, rubs, gallop, clicks GI/Abdominal exam: Present: soft, normal bowel sounds. Absent: distended, tenderness, guarding, rebound, rigid Neurological exam: Present: alert Psychiatric exam: Present: normal affect, normal mood Skin exam: Present: warm, dry, intact, normal color. Absent: rash Course Vital Signs 06/07/24 06/07/24 06/07/24 16:02 18:25 19:52 Temperature 98.1 F Pulse Rate 61 66 88 Respiratory 18 18 16 Rate Blood Pressure 116/72 107/78 O2 Sat by Pulse 98 94 L Oximetry Medical Decision Making - Medical Decision Making This is a 59 year old male who presents to the emergency department for abdominal pain, nausea, and vomiting. Was pt. sent in by a medical professional or institution? @ -No Did you speak to anyone other than the patient for history? @ -His caregiver provided most of the history. Did you review nursing and triage notes? @ -Yes, and I agree, it is accurate with regards to the patient's symptoms. Were old charts reviewed? @ -No Differential Diagnosis? @ -Differential Abdominal Pain Men: Appendicitis, cholecystitis, diverticulosis, ischemic bowel, pancreatitis, hepatitis, UTI, gastroenteritis, AAA, incarcerated hernia, bowel obstruction, constipation, inflammatory bowel, hepatitis, peptic ulcer disease, splenic infarction, perforated viscus, testicular torsion, this is not meant to be an all-inclusive list EKG interpreted by me (3pts min.)? @ -EKG interpreted by me demonstrating the following: Ventricular rate 59 bpm, QRS duration 101 ms, QTc 454 ms. X-rays interpreted by me (1pt min.)? @ -Not obtained CT interpreted by me (1pt min.)? @ -CT scan of the abdomen and pelvis obtained. My interpretation identifies no evidence of bowel wall thickening or free air. U/S interpreted by me (1pt. min.)? @ -Not obtained What testing was considered but not performed? (CT, X-rays, U/S, labs)? Why? @ -None What meds were considered but not given? Why? @ -None Did you discuss the management of the patient with other professionals? @ -Yes, Dr. Mckenna at [facility], who accepts the patient for ED to ED transfer. Did you reconcile home meds? @ -No Was smoking cessation discussed for >3mins.? @ -No Was critical care preformed (if so, how long)? @ -No Were there social determinants of health that impacted care today? How? (Homelessness, low income, unemployed, alcoholism, drug addiction, tr ansportation, low edu. Level, literacy, decrease access to med. care, [facility], rehab)? @ -No Was there de-escalation of care discussed even if they declined? (Discuss DNR or withdrawal of care, Hospice)? @ -No What co-morbidities impacted this encounter? (DM, HTN, Smoking, COPD, CAD, Cancer, CVA, Hep., AIDS, mental health diagnosis, sleep apnea, morbid obesity)? @ -Fragile X syndrome Was patient admitted / discharged? @ -Transferred. Lab work demonstrates a hemoglobin of 7.6, substantially decreased when compared with prior. Most recent value we have for comparison was from 11/19/2023 when it was 15.2. Potassium critically low at 2.7 and calcium critically low at 5.6. When corrected for albumin, calcium is 6.7. We then checked an ionized calcium, however this was within normal limits at 4.5. Given the normal ionized calcium, will avoid replacing calcium at this time. 40 mEq of K-Dur and 20 mEq of potassium chloride administered for the hypokalemia. CT scan of the abdomen pelvis demonstrates moderate stool burden without any other acute process. Protonix and Zofran administered. He did also become agitated and did not receive any of his home medications today. He was subsequently given Ativan and his home dose of Keppra. Discussed with the patient's caregiver that based on the hemoglobin of 7.6 and the coffee-ground emesis, there is concern for a GI bleed. We do not have GI available at this facility and patient was subsequently transferred to [facility] as an ED to ED transf er for further care. Patient transferred via EMS in stable condition. Dr. Mckenna is the accepting provider. Case discussed with ED attending, Dr. Cabello. Undiagnosed new problem with uncertain prognosis? Calcium was corrected for albumin @ -None Drug Therapy requiring intensive monitoring for toxicity (Heparin, Nitro, Insulin, Cardizem)? @ -None Were any procedures done? @ -None Diagnosis/symptom? @ -Upper GI bleed, anemia Acute, or Chronic, or Acute on Chronic? @ -Acute Uncomplicated (without systemic symptoms) or Complicated (systemic symptoms)? @ -Complicated Side effects of treatment? @ -None Exacerbation, Progression, or Severe Exacerbation] @ -Not applicable Poses a threat to life or bodily function? @ -Yes, further blood loss can lead to - Lab Data Result diagrams: 06/07/24 16:47 06/07/24 16:47 Lab Results 06/07/24 06/07/24 06/07/24 Range/Units 16:47 16:47 16:47 WBC 5.3 (3.8-10.6) k/uL RBC 2.33 L (4.30-5.90) m/uL Hgb 7.6 L (13.0-17.5) gm/dL Hct 22.4 L (39.0-53.0) % MCV 96.5 (80.0-100.0) fL MCH 32.6 (25.0-35.0) pg MCHC 33.8 (31.0-37.0) g/dL RDW 12.4 (11.5-15.5) % Plt Count 118 L (150-450) k/uL MPV 7.9 Neutrophils % 74 % Lymphocytes % 17 % Monocytes % 7 % Eosinophils % 1 % Basophils % 0 % Neutrophils # 3.9 (1.3-7.7) k/uL Lymphocytes # 0.9 L (1.0-4.8) k/uL Monocytes # 0.4 (0-1.0) k/uL Eosinophils # 0.0 (0-0.7) k/uL Basophils # 0.0 (0-0.2) k/uL PT 13.6 H (10.0-12.5) sec INR 1.3 H (<1.2) APTT 31.1 H (22.0-30.0) sec Sodium 129 L (137-145) mmol/L Potassium 2.7 L* (3.5-5.1) mmol/L Chloride 108 H (98-107) mmol/L Carbon Dioxide 19 L (22-30) mmol/L Anion Gap 2 mmol/L BUN 6 L (9-20) mg/dL Creatinine 0.27 L (0.66-1.25) mg/dL Est GFR (CKD-EPI)AfAm >90 (>60 ml/min/1.73 sqM) Est GFR (CKD-EPI)NonAf >90 (>60 ml/min/1.73 sqM) Glucose 83 (74-99) mg/dL Plasma Lactic Acid Noe (0.7-2.0) mmol/L Calcium 5.6 L* (8.4-10.2) mg/dL Ionized Calcium Thais (4.5-5.3) mg/dL Phosphorus (2.5-4.5) mg/dL Magnesium (1.6-2.3) mg/dL Total Bilirubin 0.4 (0.2-1.3) mg/dL AST 13 L (17-59) U/L ALT 11 (4-49) U/L Alkaline Phosphatase 35 L (38-126) U/L Total Protein 4.0 L (6.3-8.2) g/dL Albumin 2.1 L (3.5-5.0) g/dL Amylase <30 L (30-110) U/L Lipase 27 (23-300) U/L 06/07/24 06/07/24 Range/Units 16:47 18:13 WBC (3.8-10.6) k/uL RBC (4.30-5.90) m/uL Hgb (13.0-17.5) gm/dL Hct (39.0-53.0) % MCV (80.0-100.0) fL MCH (25.0-35.0) pg MCHC (31.0-37.0) g/dL RDW (11.5-15.5) % Plt Count (150-450) k/uL MPV Neutrophils % % Lymphocytes % % Monocytes % % Eosinophils % % Basophils % % Neutrophils # (1.3-7.7) k/uL Lymphocytes # (1.0-4.8) k/uL Monocytes # (0-1.0) k/uL Eosinophils # (0-0.7) k/uL Basophils # (0-0.2) k/uL PT (10.0-12.5) sec INR (<1.2) APTT (22.0-30.0) sec Sodium (137-145) mmol/L Potassium (3.5-5.1) mmol/L Chloride (98-107) mmol/L Carbon Dioxide (22-30) mmol/L Anion Gap mmol/L BUN (9-20) mg/dL Creatinine (0.66-1.25) mg/dL Est GFR (CKD-EPI)AfAm (>60 ml/min/1.73 sqM) Est GFR (CKD-EPI)NonAf (>60 ml/min/1.73 sqM) Glucose (74-99) mg/dL Plasma Lactic Acid Noe <0.5 L (0.7-2.0) mmol/L Calcium (8.4-10.2) mg/dL Ionized Calcium Thais 4.5 (4.5-5.3) mg/dL Phosphorus 2.5 (2.5-4.5) mg/dL Magnesium 1.7 (1.6-2.3) mg/dL Total Bilirubin (0.2-1.3) mg/dL AST (17-59) U/L ALT (4-49) U/L Alkaline Phosphatase (38-126) U/L Total Protein (6.3-8.2) g/dL Albumin (3.5-5.0) g/dL Amylase (30-110) U/L Lipase (23-300) U/L - Radiology Data Radiology results: report reviewed, image reviewed Disposition Clinical Impression: Upper GI bleed, Anemia due to blood loss, acute, Hypokalemia Disposition: OTHER INSTITUTION NOT DEFINED Referrals: Harvey Green Jr, [Primary Care Provider] - 1-2 days - Out of Hospital Transfer - Req. Specs Out of Hospital Transfer - Requested Specifics: Other Emergency Center ([facility])
[2024-06-07] MEDS: ONDANSETRON 4 MG/2 ML VIAL IVP STA (16:38)
[2024-06-07] MEDS: PANTOPRAZOLE 40 MG/10 ML VIAL IVP STA (16:40)
[2024-06-07] MEDS: SODIUM CHLORIDE 0.9% 1,000 ML IV STA (16:41)
[2024-06-07 17:12] LABS: Basophils % (A) 0 %; Eosinophils % (A) 1 %; HCT 22.4 % (39.0-53.0); HGB 7.6 gm/dL (13.0-17.5); Lymphocytes # (A) 0.9 k/uL (1.0-4.8); Lymphocytes % (A) 17 %; MCH 32.6 pg (25.0-35.0); MCHC 33.8 g/dL (31.0-37.0); MCV 96.5 fL (80.0-100.0); Mean Platelet Volume 7.9; Monocytes # (A) 0.4 k/uL (0-1.0); Monocytes % (A) 7 %; Neutrophils # (A) 3.9 k/uL (1.3-7.7); Neutrophils % (A) 74 %; Platelet Count 118 k/uL (150-450); RBC 2.33 m/uL (4.30-5.90); RDW 12.4 % (11.5-15.5); WBC 5.3 k/uL (3.8-10.6)
[2024-06-07 17:16] LABS: INR 1.3 (<1.2); Partial Thromboplastin Time 31.1 sec (22.0-30.0); Prothrombin Time 13.6 sec (10.0-12.5)
[2024-06-07 17:28] LABS: ALT 11 U/L (4-49); AST 13 U/L (17-59); African American GFR (CKD) >90 (>60 ml/min/1.73 sqM); Albumin 2.1 g/dL (3.5-5.0); Alkaline Phosphatase 35 U/L (38-126); Anion Gap 2 mmol/L; Blood Urea Nitrogen 6 mg/dL (9-20); Carbon Dioxide 19 mmol/L (22-30); Chloride 108 mmol/L (98-107); Glucose 83 mg/dL (74-99); Lipase 27 U/L (23-300); Non-African American GFR(CKD) >90 (>60 ml/min/1.73 sqM); Sodium 129 mmol/L (137-145); Total Bilirubin 0.4 mg/dL (0.2-1.3)
[2024-06-07 18:00] LABS: Amylase <30 U/L (30-110); Calcium 5.6 mg/dL (8.4-10.2); Potassium 2.7 mmol/L (3.5-5.1)
[2024-06-07] MEDS: LORazepam 2 MG/ML INJ IV STA (18:00)
[2024-06-07] MEDS: levETIRAcetam IV 500 MG/5 ML VIAL IVP STA (18:01)
[2024-06-07 18:29] LABS: Ionized Calcium 4.5 mg/dL (4.5-5.3)
[2024-06-07 18:37] LABS: Magnesium 1.7 mg/dL (1.6-2.3); Phosphorus 2.5 mg/dL (2.5-4.5)
--- NOTE | 2024-06-07 18:46 | CT ---
EXAMINATION TYPE: CT angio abdomen pelvis DATE OF EXAM: 06/07/2024 COMPARISON: 03/22/2012 INDICATION: vomiting blood, Left upper quadrant pain and emesis DLP: 1594.8 mGycm, Automated exposure control for dose reduction was used. CONTRAST: 100 ml mL of Isovue 370. Study performed without Oral Contrast TECHNIQUE: Axial images were obtained from above the diaphragm to the pubic rami in the axial plane a t 5 mm thick sections. Reconstructed images are reviewed on the computer in the coronal plane. FINDINGS: Limited CT sections are obtained the lung bases. The lung bases are clear. Moderate size hiatal her lynn is present. CT ABDOMEN: No free air is identified. Liver: Normal Spleen: Normal Pancreas: Normal Adrenal glands: The adrenal glands are normal. Gallbladder: Normal Kidneys: No masses are evident. No hydronephrosis is present. No cysts are present. No renal stone s are evident. Aorta: Vascular calcification is within the aorta. Inferior vena cava: Normal. CT PELVIS: Loops of bowel within the abdomen and pelvis are normal. Fecal debris is through the colon. No obstru ction is identified. Studies without oral contrast limiting bowel evaluation. Appendix: Not visualized. No dilated tubular structure or inflammatory changes. Urinary bladder: Distended Genitourinary structures: Prostate appears normal Osseous structures: No suspicious lytic or sclerotic lesions. IMPRESSION: 1. Moderate fecal retention throughout the colon. Obstruction is not identified. [facility], , 06/07/2024 6:44 PM
[2024-06-07] MEDS: POTASSIUM CHLORIDE 20 MEQ in WATER FOR INJECTION 1 100ML.BAG IVPB STA (18:51)
[2024-06-07] MEDS: POTASSIUM CHLORIDE ER 20 MEQ TAB.ER PO STA (18:53)
[2024-06-07 19:54] VITALS: BP 107/78; PULSE 88; RESP 16
== END 2024-06-07 19:54 | disposition other institution (70) ==
LOC: EC 15:51
CPT/HCPCS: 36415; 74174; 80053; 82150; 82330; 83605; 83690; 83735; 84100; 85025; 85610; 85730; 93005; 96361; 96365; 96375; 99285